=== PATIENT | female | born 1990 | race Caucasian/White ===

== ENCOUNTER 2024-12-10 14:23 | Outpatient (CLI) | payer SELFPAY ==
--- OUTSIDE RECORDS SUMMARY | 2023-11-26 09:00 | XMS_ITS ---
Author Organization [facility], [place], operated by [facility] Address [address] [place] [address] Care Team Providers Care Mine Engineering Supervisor Name Role Phone Alisa Moody Unavailable [phone] Jack Wheeler Unavailable [phone] Results Component Value Reference Range Notes *US OB Complete Transabdomin al/Vaginal Reviewed date:11/26/2023 09:37:17 PM Interpretation: Performing Lab: Notes/Report: [facility] Transvaginal Obstetric Study Report Name: NILSON MESSER Accession/Encounter No:[id number] : 1990 Age: 33 Gender: F Race: White Study Date: Nov 26, 2023 Study Time: 01:20 PM Reading Group: Debo Gonzalez MD Referring Group: Jack Wheeler CNM Ordering Phys: Jack Wheeler CNM Performing User: Elle Paulino RDMS Equipment: Affiniti 30 Study Quality: Good Indications: Viability. Spotting with inappropriate HCG rise at outside facility. A 1st Trimester ultrasound was performed. General Information Trimester: 1st trimester Gestations: 1 : Intrauterine Gestational Age (Best) Best: 10w 5d Determined by: LMP MELANI: 2024-06-18 Gestational Age (LMP) LMP: 10w 5d First Day of LMP: 2023-09-12 MELANI: 2024-06-18 Gestational Age (Current US) Current US: 4w 6d MELANI: 2024-07-29 General Evaluation Gestational sac: 4.4 mm x 4.8 mm x 2.3 mm Gestational sac median diam: 3.8 mm 4w 6d Findings: Maternal Anatomy: Unremarkable right ovary. Abnormal left ovary. There is a 0.9 x 1 x 1.1 cm complex cyst noted on the left ovary. There is a 1.6 x 1.5 x 1.9 cm complex cyst noted on the left ovary. Conclusions: There are two anechoic foci without internal contents noted within endometrium measuring 4.4 x 2.3 x 4.8 mm & 3.1 x 2.3 x 4.2 mm. Uterus, left ovary and bilateral adnexa appear normal. Two complex foci noted on right ovary as above. Small amount of free fluid noted in cul de sac. Approved By: Debo Gonzalez MD Approved at: November 26, 2023 08:15 PM EDT Electronically Signed on Studycast NILSON MESSER 2023-11-26 Page 1 of 1 [facility] [address] REASON FOR VISIT Not checked in for US correctly* LMP Unknown - Approx 09/13/2023 - 11WK.....provider appt is at 1:30, confirmed with patient to arrive at 1:30 still....cv Left VM to arrive at 1 if possible w/ opening Encounters Encounter Location Date Provider Diagnosis [facility] [address] [place] [address] 11/26/2023 Jack Wheeler Encounter to determine viability of , single or unspecified fetus O36.80X0 Assessments Encounter Date Diagnosis (ICD Code) Assessment Notes Treatment Notes Treatment Clinical Notes Section Notes 11/26/2023 Encounter to determine viability of , single or unspecified fetus (ICD-10 - O36.80X0) Plan Of Treatment No Information Progress Notes * Humphrey MESSERB:1990 (34 yo F)Acc No.[id number]:11/26/2023 Patient: Nilson Hassan Provider: Compa Wheeler CNM :1990 A ge:33 Y S ex:Female Date:11/26/2023 Address:[address] [place] [id number] Subjective: * Chief Complaints: * N ot checked in for US correctly* LMP Unknown - Approx 09/13/2023 - 11WK.....provider appt is at 1:30, confirmed with patient to arrive at 1:30 still....cv Left VM to arrive at 1 if possible w/ opening Assessment: * Assessment: 1. E ncounter to determine viability of , single or unspecified fetus - O36.80X0 (Primary) Plan: * Treatment: Billing Information: * Procedure Codes: * Electronic signature of Miguel Wheeler CNM on 12/10/2024 at 02:29 PM EDT Sign off status: Pending Visit Status: C HK (Check Out) * Provider: Compa Wheeler CNM Date: 0 11/26/2023 Generated for Paula brambila/Divya/eTransmitting on: 0 12/10/2024 02:29 PM EDT
--- OUTSIDE RECORDS SUMMARY | 2024-08-04 08:30 | XMS_ITS | Encounter Summary ---
Author Organization [facility] Address [address] [place] [address] Care Team Providers Care Process Development Technician Name Role Phone Provider, No Known Primary Care Provider [phone] Reason for Visit * Diagnostic Imaging (Routine) - Closed Specialty Diagnoses / Procedures Referred By Contac t Referred To Contact Obstetrics and Gynecology Diagnoses Encounter for ultrasound to check growth Procedures US Ob Follow Up Transabdominal Approach US OB Follow Up Transabdominal Approach US Ob Transvaginal Nina Clements MD [address] [place] [address] Phone: tel: fax: [facility] [address] [place] [address] Phone: tel: fax: Referral ID Status Reason Start Date Expiration Date Visits Re quested Visits Authorized [id number] Closed 07/28/2024 10/27/2025 1 1 Encounter Details Date Type Department Care Team (Latest Contact Info) Description 08/04/2024 8:30 AM EDT Hospital Encounter [facility] [phone] Encounter to determine viability of , single or unspecified fetus; Encounter for ultrasound to check growth Social History Tobacco Use Types Packs/Day Years Used Date Smoking Tobacco: Every Day Cigarettes 1 5 Smokeless Tobacco: Never Alcohol Use Standard Drinks/Week Comments Never 0 (1 standard drink = 0.6 oz pur e alcohol) [facility] Utilities Answer Date Recorded In the past 12 months has th e electric, gas, oil, or water company threatened to shut off services in your home? No 10/20/2024 AUDIT-C Answer Date Recorded Q1: How often do you have a drink containing alcohol? Never 10/20/2024 Q2: How many drinks containi ng alcohol do you have on a typical day when you are drinking? Patient does not drink Q3: How often do you have si x or more drinks on one occasion? Never 10/20/2024 Overall Financial Resource Strain (CARDIA) Answe r Date Recorded How hard is it for you to pa y for the very basics like food, housing, medical care, and heating? Not very hard 10/20/2024 [facility] - Occupational Stress Questionnaire Answer Date Recorded Do you feel stress - tense, restless, nervous, or anxious, or unable to sleep at night because your mind is troubled all the time - these days? Not at all 10/20/2024 Exercise Vital Sign Answer Date Recorde d On average, how many days pe r week do you engage in moderate to strenuous exercise (like a brisk walk)? 0 days 10/20/2024 On average, how many minutes do you engage in exercise at this level? 0 min 10/20/2024 Hunger Vital Sign Answer Date Recorded Within the past 12 months, y ou worried that your food would run out before you got the money to buy more. Never true 10/21/19 25 Within the past 12 months, t he food you bought just didn't last and you didn't have money to get more. Never true 10/20/2024 PRAPARE - Transportation Answer Date Re corded In the past 12 months, has l ack of transportation kept you from medical appointments or from getting medications? No 09/29 In the past 12 months, has l ack of transportation kept you from meetings, work, or from getting things needed for daily living? No 10/20/2024 [place] Depression Scale Answer Date Recorded [place] Depression Scale Total 3 11/04/2024 The thought of harming myself has occurred to me . Never 11/04/2024 Abuse Screen Answer Date Recorded Feels Unsafe at Home or Work/School no 10/20/2024 Feels Threatened by Someone no 09/29 Does Anyone Try to Keep You From Having Contact with Others or Doing Things Outside Your Home? no 10/20/2024 Physical Signs of Abuse Present no 10/20/2024 Housing Stability Answer Date Recorded Current Living Arrangements home 09/29 Potentially Unsafe Housing Conditions none 10/20/2024 Family and Community Support Answer Rylie e Recorded If for any reason you need h elp with day-to-day activities such as bathing, preparing meals, shopping, managing finances, etc., do you get the help you need? I get all the help I need 10/20/2024 How often do you feel lonely or isolated from those around you? Never 10/20/2024 Employment Answer Date Recorded Do you want help finding or keeping work or a job? I do not need or want help 10/20/2024 Disabilities Answer Date Recorded Difficulty Concentrating, Remembering or Making Decisions no 10/20/2024 Difficulty Managing Errands Independently no 10/20/2024 Education Answer Date Recorded Do you want help with school or training? For example, starting or completing job training or getting a high school diploma, GED or equivalent No 10/20/2024 Preferred Language Zimbabwean 10/20/2024 PHQ-2 Answer Date Recorded Patient Health Questionnaire-2 Score 0 10/20/2024 Comments No Sex and Gender Information Value Date Recorded Sex Assigned at Not on file Legal Sex Female 1:47 PM EDT Gender Identity Not on file Sexual Orientation Not on file documented as of this encounter Functional Status * Audit-C Score Answer Date of Assessment Author 0 10/20/2024 7:53 AM Sayda Cummings RN * Question Answer Date of Assessment Author Q1: How often do you have a drink containing alcohol? Never 10/20/2024 7:53 AM Sayda Cummings RN Q2: How many drinks containing alcohol do you have on a typical day when you are drinking? Patient does not drink 10/20/2024 7:53 AM Sayda Cummings RN Q3: How often do you have six or more drinks on one occasion? Never 10/20/2024 7:53 AM Sayda Cummings , RN * Over the past 2 weeks, how often have you been bothered by any of the following problems? Question Answer Date of Assessment Author Patient Health Questionnaire -2 Score 0 10/20/2024 7:53 AM EDT Sayda Chen RN * Question Answer Date of Assessment Author 1. Wish to be (Past 1 Month) No 025 7:47 AM EDT Sayda Chen RN 2. Non-Specific Active Suici cory Thoughts (Past 1 Month) No 10/20/2024 7:47 AM EDT Neno Chen RN * Calculated C-SSRS Risk Score (Lifetime/Recent) Answer Date of Assessment Author No Risk Indicated 10/20/2024 7:47 AM EDT Sayda Arredondo RN * [place] Suicide Severity Rating Scale (Screener/Recent Self-Report) Question Answer Date of Assessment Author 6. Suicidal Behavior (Lifetime) No 7:47 AM EDT Sayda Chen RN * Question Answer Date of Assessment Author Little interest or pleasure in doing things Not at all 10/20/2024 7:53 AM EDT Sayda Chen RN Feeling down, depressed, or hopeless Not at all 10/20/2024 7:53 AM EDT Sayda Chen RN documented as of this encounter Plan of Treatment Not on file documented as of this encounter Procedures Procedure Name Priority Date/Time Associated Diagnosis Comments US OB FOLLOW UP TRANSABDOMINAL APPROACH Routine 08/04/2024 9:26 AM EDT Encounter for ultrasound to check growth documented in this encounter Results * US Ob Follow Up Transabdominal Approach (08/04/2024 9:26 AM EDT) Anatomical Region Laterality Modality Body Ultrasound 08/04/2024 9:04 AM EDT Narrative 08/05/2024 7:59 AM EDT PAT NAME: NILSON MESSER MED REC#: [id number] DA: 1990 PAT GEND: F PAT TYPE: O EXAM RYLIE: [id number] REF PHYS NINA CLEMENTS Piercer Comments Previous scans including anatomy done through [facility]. Indication ======== Transfer of care, Opiate use disorder Dx: Encounter for ultrasound to check growth [Z36.89 (ICD-10-CM)] Comparison Studies There are no relevant prior studies to which this study is being compared available. History ====== Previous Outcomes 2 Para 1 Method ======= Voluson E6, Transabdominal ultrasound examination ========= Romero . Number of fetuses: 1 Dating ====== Method of dating: based on stated MELANI GA by prior assessment 27 w + 4 d MELANI by prior assessment: 10/30/2024 Ultrasound examination on: 08/04/2024 GA by U/S based upon: AC, BPD, Femur, HC GA by U/S 27 w + 3 d MELANI by U/S: 10/31/2024 Assigned: based on stated MELANI, selected on 08/04/2024 Assigned GA 27 w + 4 d Assigned MELANI: 10/30/2024 length 280 d General Evaluation Cardiac activity present. FHR 134 bpm. movements visualized. Presentation cephalic. Placenta Placental site: anterior. Amniotic fluid Amount of AF: normal. Biometry Standard BPD 68.0 mm 27w 3d 31% Hadlock OFD 87.3 mm 28w 1d 68% Hugo HC 248.4 mm 27w 0d 9% Hadlock AC 237.3 mm 28w 0d 57% Hadlock Femur 51.0 mm 27w 2d 28% Hadlock HC / AC 1.05 EFW 1,105 g 27w 2d 40% Hadlock EFW (lb) 2 lb EFW (oz) 7 oz EFW by: Hadlock ([id number]) Other: An ultrasound for weight has a margin of error of up to twenty percent. Head / Face / Neck Cephalic index 0.78 40% Nicolaides Extremities / Bony Struc FL / BPD 0.75 FL / HC 0.21 FL / AC 0.21 Other Structures FHR 134 bpm Anatomy Cranium: Appears normal Lateral ventricles: Appears normal Midline falx: Appears normal Lips: Appear normal Nose: Appears normal 4-chamber view: Appears normal RVOT view: Appears normal Heart / Thorax 3-vessel view: Appears normal Stomach: Appears normal Kidneys: Appears normal Bladder: Appears normal Cervical spine: Appears normal Thoracic spine: Appears normal Lumbar spine: Appears normal Sacral spine: Appears normal Rt hand: suboptimal Lt hand: suboptimal Rt foot: Appears normal Lt foot: Appears normal Gender: female Wants to know gender: yes Impression ========= Fetus is well grown with size consistent with dates. Limited but normal appearing anatomy. Recommendation Follow-up scan as clinically indicated. Piercer: Debo Guerrero RDMS Physician: Nina Clements MD Electronically signed by: Nina Clements MD at: 12:54 Procedure Note Nina Clements MD - 08/18/2024 PAT NAME: NILSON MESSER MED REC#: [id number] DA: 1990 PAT GEND: F PAT TYPE: O EXAM RYLIE: [id number] REF PHYS NINA CLEMENTS Piercer Comments Previous scans including anatomy done through [facility]. Indication ======== Transfer of care, Opiate use disorder Dx: Encounter for ultrasound to check growth [Z36.89 (ICD-10-CM)] Comparison Studies There are no relevant prior studies to which this study is being comparedavailable. History ====== Previous Outcomes Gravida2 Para1 Method ======= Voluson E6, Transabdominal ultrasound examination ========= Romero . Number of fetuses: 1 Dating ====== Method of dating:based on stated MELANI GA by prior [id number] w + 4 d MELANI by prior assessment:10/30/2024 Ultrasound examination on:08/04/2024 GA by U/S based upon:AC, BPD, Femur, HC GA by U/S27 w + 3 d MELANI by U/S:10/31/2024 Assigned:based on stated MELANI, selected on 08/04/2024 Assigned GA27 w + 4 d Assigned MELANI:10/30/2024 [id number] d General Evaluation Cardiac activity present. FHR 134 bpm. movements visualized. Presentation cephalic. Placenta Placental site: anterior. Amniotic fluid Amount of AF: normal. Biometry Standard BPD68.0 mm 27w 3d 31% Hadlock OFD87.3 mm 28w 1d 68% Hugo HC248.4 mm 27w 0d 9% Hadlock AC237.3 mm 28w 0d 57% Hadlock Femur51.0 mm 27w 2d 28% Hadlock HC / AC1.05 EFW1,105 g 27w 2d 40% Hadlock EFW (lb)2 lb EFW (oz)7 oz EFW by:Hadlock ([id number]) Other:An ultrasound for weight has a margin of error of up totwenty percent. Head / Face / Neck Cephalic index0.78 40% Nicolaides Extremities / Bony Struc FL / BPD0.75 FL / HC0.21 FL / AC0.21 Other Structures [id number] bpm Anatomy Cranium:Appears normal Lateral ventricles:Appears normal Midline falx:Appears normal Lips:Appear normal Nose:Appears normal 4-chamber view:Appears normal RVOT view:Appears normal Heart / Thorax 3-vessel view:Appears normal Stomach:Appears normal Kidneys:Appears normal Bladder:Appears normal Cervical spine:Appears normal Thoracic spine:Appears normal Lumbar spine:Appears normal Sacral spine:Appears normal Rt hand:suboptimal Lt hand:suboptimal Rt foot:Appears normal Lt foot:Appears normal Gender:female Wants to know gender:yes Impression ========= Fetus is well grown with size consistent with dates. Limited but normalappearing anatomy. Recommendation Follow-up scan as clinically indicated. Piercer: Debo Guerrero RDMS Physician: Nina Clements MD Electronically signed by: Nina Clements MD at: 12:54 us Nina Clements MD [facility] [place] ORDERABLES Edited Result - Final documented in this encounter Visit Diagnoses Diagnosis Encounter to determine viability of , single or unspecified fetus documented in this encounter Care Teams Process Development Technician Relationship Specialty Start Date End Date Provider, [place] [address] PCP - General 12/16/15 documented as of this encounter
--- OUTSIDE RECORDS SUMMARY | 2024-09-07 10:19 | XMS_ITS | Encounter Summary ---
Author Organization [facility] Address [address] [place] [address] Care Team Providers Care Sole Splitter Name Role Phone Provider, No Known Primary Care Provider Reason for Referral * Diagnostic Imaging (Routine) - Authorized Specialty Diagnoses / Procedures Referred By Contact Referred To Contact Obstetrics and Gynecology Diagnoses 32 weeks gestation of Supervision of high risk in third trimester History of pre-eclampsia in prior , currently Opioid dependence in remission Previous section Hepatitis C virus infection in mother during Procedures US Biophysical Profile;Without Non-Stress Testing Rosangela Grimm CNM [address] [place] [address] Phone: tel: fax: [facility] [address] [place] [phone] Phone: tel: fax: Referral ID Status Reason Start Date Expiration Date V isits Requested Visits Authorized [id number] Authorized 09/06/2024 12/06/2025 8 8 Reason for Visit * Diagnostic Imaging (Routine) - Authorized Specialty Diagnoses / Procedures Referred By Contact Referred To Contact Obstetrics and Gynecology Diagnoses 32 weeks gestation of Supervision of high risk in third trimester History of pre-eclampsia in prior , currently Opioid dependence in remission Previous section Hepatitis C virus infection in mother during Procedures US Biophysical Profile;Without Non-Stress Testing Rosangela Grimm CNM [address] [facility] [address] [place] [address] Phone: tel: fax: [facility] [address] [place] [address] Phone: tel: fax: Referral ID Status Reason Start Date Expiration Date V isits Requested Visits Authorized [id number] Authorized 09/06/2024 12/06/2025 8 8 Encounter Details Date Type Department Care Team (Latest Contact Info) Description 09/07/2024 10:19 AM EDT Hospital Encounter BH [facility] [phone] 32 weeks gestation of ; Supervision of high risk in third trimester; History of pre-eclampsia in prior , currently ; Opioid dependence in remission; Previous section; Hepatitis C virus infection in mother during - undetectable quant Social History Tobacco Use Types Packs/Day Years Used Date Smoking Tobacco: Every Day Cigarettes 1 5 Smokeless Tobacco: Never Alcohol Use Standard Drinks/Week Comments Never 0 (1 standard drink = 0.6 oz pur e alcohol) [facility] Utilities Answer Date Recorded In the past 12 months has e [employer], gas, oil, or water [employer] threatened to shut off services in your [...] care, and heating? Not very hard 10/20/2024 [facility] [place] of Occupat ional Health - Occupational Stress Questionnaire Answer Date Recorded [...] things needed for daily living? No 10/20/2024 [place] Depression Scale Answer Date Recorded [place] Depression Scale Total 3 11/04/2024 The thought [...] none 10/20/2024 Family and Community Support Answer Gurmeet e Recorded If for any reason you [...] GED or equivalent No 10/20/2024 Preferred Language Uruguayan 10/20/2024 PHQ-2 Answer Date Recorded Patient Health [...] occasion? Never 10/20/2024 7:53 AM Sayda Cummings RN * Over the past 2 weeks, how often have you been bothered by any of the following problems? Question Answer Date of Assessment Author Patient Health Questionnaire -2 Score 0 10/20/2024 7:53 AM Sayda Cummings RN * Question Answer Date of Assessment Author 1. Wish to be (Past 1 Month) No 025 7:47 AM Sayda Cummings RN 2. Non-Specific Active Suici cory Thoughts (Past 1 Month) No 10/20/2024 7:47 AM Neno Cummings RN * Calculated C-SSRS Risk Score (Lifetime/Recent) Answer Date of Assessment Author No Risk Indicated 10/20/2024 7:47 AM Sayda Rodriguez RN * [place] Suicide Severity Rating Scale (Screener/Recent Self-Report) Question Answer Date of Assessment Author 6. Suicidal Behavior (Lifetime) No 7:47 AM Sayda Cummings RN * Question Answer [...] Name Priority Date/Time Associated Diagnosis Comments US BIOPHYSICAL PROFILE;WITHOUT NON-STRESS TESTING Routine 09/07/2024 11:06 AM EDT 32 weeks gestation of Supervision of high risk in third trimester History of pre-eclampsia in prior , currently Opioid dependence in remission Previous section Hepatitis C virus infection in mother during - undetectable quant documented in this encounter Results * US Biophysical Profile;Without Non-Stress Testing (09/07/2024 11:06 AM EDT) Anatomical Region Laterality Modality Body Ultrasound 09/07/2024 10:4 9 AM EDT Narrative 09/10/2024 4:20 PM EDT PAT NAME: NILSON MESSER MED REC#: [id number] DA: [id number] PAT GEND: F PAT TYPE: O EXAM GURMEET: [id number] REF PHYS ROSANGELA GRIMM Indication ======== history of pre eclampsia , on subutex Dx: 32 weeks gestation of [Z3A.32 (ICD-10-CM)]; Supervision of high risk in third trimester [O09.93 (ICD-10-CM)]; History of pre-eclampsia in prior , currently [O09.299 (ICD-10-CM)]; Opioid dependence in remission [F11.21 (ICD-10-CM)]; Previous section [Z98.891 (ICD-10-CM)]; Hepatitis C virus infection in mother during - undetectable quant [O98.419, B19.20 (ICD-10-CM)] Comparison Studies The findings of this study are compared to the prior ultrasound study dated 08/04/2024 Method ======= Voluson E6, Transabdominal ultrasound examination. View: Sufficient ========= Romero . Number of fetuses: 1 Dating ====== GA by prior assessment 32 w + 3 d MELANI by prior assessment: 10/30/2024 Method of dating: Restore dating from previous exam Previous dating: based on stated MELANI, selected on 08/04/2024 Agreed MELANI of previous datin10/30/2024 Assigned: based on stated MELANI, selected on 08/04/2024 Assigned GA 32 w + 3 d Assigned MELANI: 10/30/2024 length 280 d General Evaluation Cardiac activity present. FHR 138 bpm. movements visualized. Presentation cephalic. Placenta Placental site: anterior. Amniotic Fluid Assessment Amount of AF: subjectively high MVP 8.4 cm. GRABIEL 24.4 cm. Q1 4.5 cm, Q2 5.4 cm, Q3 8.4 cm, Q4 6.1 cm Biophysical Profile 2: breathing movements 2: Gross body movements 2: tone 2: Amniotic fluid volume 11/05 Biophysical profile score Anatomy Gender: female. Impression ========= Normal BPP Recommendation Continue the routine schedule of testing for the condition being monitored. Automatic Bow Maker Machine Tender: Debo Guerrero RDMS Physician: Ashley Cruz MD Electronically signed by: Ashley Cruz MD at: 16:20 Procedure Note Ashley Cruz MD - 09/10/2024 PAT NAME: NILSON MESSER MED REC#: [id number] DA: 1990 PAT GEND: F PAT TYPE: O EXAM GURMEET: [id number] REF PHYS ROSANGELA GRIMM Indication ======== history of pre eclampsia , on subutex Dx: 32 weeks gestation of [Z3A.32 (ICD-10-CM)]; Supervision ofhigh risk in third trimester [O09.93 (ICD-10-CM)]; History ofpre-eclampsia in prior , currently [O09.299 (ICD-10-CM)]; Opioid dependence inremission [F11.21 (ICD-10-CM)]; Previous section [Z98.891(ICD-10-CM)]; Hepatitis C virus infection in mother during - undetectable quant[O98.419, B19.20 (ICD-10-CM)] Comparison Studies The findings of this study are compared to the prior ultrasound studydated 08/04/2024 Method ======= Voluson E6, Transabdominal ultrasound examination. View: Sufficient ========= Romero . Number of fetuses: 1 Dating ====== GA by prior [id number] w + 3 d MELANI by prior assessment:10/30/2024 Method of dating:Restore dating from previous exam Previous dating:based on stated MELANI, selected on 08/04/2024 Agreed MELANI of previous datin10/30/2024 Assigned:based on stated MELANI, selected on 08/04/2024 Assigned GA32 w + 3 d Assigned MELANI:10/30/2024 [id number] d General Evaluation Cardiac activity present. FHR 138 bpm. movements visualized. Presentation cephalic. Placenta Placental site: anterior. Amniotic Fluid Assessment Amount of AF: subjectively high MVP 8.4 cm. GRABIEL 24.4 cm. Q1 4.5 cm, Q2 5.4 cm, Q3 8.4 cm, Q4 6.1 cm Biophysical Profile 2: breathing movements 2: Gross body movements 2: tone 2: Amniotic fluid volume 11/05 Biophysical profile score Anatomy Gender: female. Impression ========= Normal BPP Recommendation Continue the routine schedule of testing for the condition beingmonitored. Automatic Bow Maker Machine Tender: Debo Guerrero RDMS Physician: Ashley Cruz MD Electronically signed by: Ashley Cruz MD at: 16:20 Rosangela Ruiz [facility] ORDERABLES Final Resul t documented in this encounter Visit Diagnoses Diagnosis 32 weeks gestation of Supervision of high risk in third trimester History of pre-eclampsia in prior , currently with other poor obstetric history Opioid dependence in remission Opioid type dependence, in remission Previous section Other postprocedural status Hepatitis C virus infection in mother during - undetectable quant documented in this encounter Care Teams Sole Splitter Relationship Specialty Start Date End Date Provider, No Known [place], [place] [id number] PCP - General 12/16/15 documented as of this encounter
--- OUTSIDE RECORDS SUMMARY | 2024-09-10 14:28 | XMS_ITS | Encounter Summary ---
Author Organization [facility] Address [address] [place] [id number] Care Team Providers Care Money Market Dealer Name Role Phone Provider, No Known Primary Care Provider [phone] Reason for Referral * Diagnostic Imaging (Routine) [...] Profile;Without Non-Stress Testing Rosangela Grimm CNM [address] [place] [address] Phone: tel: fax: [facility] [address] [place] [phone] Phone: tel: fax: Referral ID Status Reason Start Date Expiration Date V isits Requested Visits Authorized [id number] Authorized 09/06/2024 12/06/2025 8 8 Reason for [...] Procedures US Biophysical Profile;Without Non-Stress Testing Rosangela Grimm, KAREEM [address] [facility] [address] [place] [address] Phone: tel: fax: [facility] [address] [place] [address] Phone: tel: fax: Referral ID Status Reason Start Date Expiration Date V isits Requested Visits Authorized [id number] Authorized 09/06/2024 12/06/2025 8 8 Encounter Details Date Type Department Care Team (Latest Contact Info) Description 09/10/2024 2:28 PM EDT Hospital Encounter BH ELZA [facility] [phone] 32 weeks gestation of ; Supervision of high risk in third trimester; History of eclampsia; Opioid dependence in remission; Previous section; Hepatitis C virus infection in mother during - undetectable quant Social History Tobacco Use Types Packs/Day Years Used Date Smoking Tobacco: Every Day Cigarettes 1 5 Smokeless Tobacco: Never Alcohol Use Standard Drinks/Week Comments Never 0 (1 standard drink = 0.6 oz pur e alcohol) [facility] Utilities Answer Date Recorded In the past 12 months has [employer], gas, oil, or water [employer] threatened to shut off services in your [...] care, and heating? Not very hard 10/20/2024 [facility] [place] of Occupat ional Health - Occupational Stress [...] things needed for daily living? No 10/20/2024 [place] Depression Scale Answer Date Recorded [place] Depression Scale Total 3 11/04/2024 The thought [...] GED or equivalent No 10/20/2024 Preferred Language Namibian 10/20/2024 PHQ-2 Answer Date Recorded Patient Health [...] 10/20/2024 7:47 AM Sayda Rodriguez RN * [place] Suicide Severity Rating Scale (Screener/Recent Self-Report) Question Answer Date of Assessment Author 6. Suicidal Behavior (Lifetime) No 7:47 AM Sayda Cummings RN * Question Answer Date of Assessment Author Little interest or pleasure in doing things Not at all 10/20/2024 7:53 AM Sayda Cumminsg RN Feeling down, depressed, or hopeless Not at all 10/20/2024 7:53 AM EDT Sayda Chen RN documented as of this encounter Plan of Treatment Not on file documented as of this encounter Procedures Procedure Name Priority Date/Time Associated Diagnosis Comments US BIOPHYSICAL PROFILE;WITHOUT NON-STRESS TESTING Routine 09/10/2024 3:14 PM EDT 32 weeks gestation of Supervision of high risk in third trimester History of eclampsia Opioid dependence in remission Previous section Hepatitis C virus infection in mother during - undetectable quant documented in this encounter Results * US Biophysical Profile;Without Non-Stress Testing (09/10/2024 3:14 PM EDT) Anatomical Region Laterality Modality Body Ultrasound 09/10/2024 2:50 PM EDT Narrative 09/10/2024 4:18 PM EDT PAT NAME: NILSON MESSER MED REC#: [id number] DA: [id number] PAT GEND: F PAT TYPE: O EXAM GURMEET: [id number] REF PHYS ROSANGELA GRIMM Indication ======== history of pre eclampsia , on subutex Dx: 32 weeks gestation of [Z3A.32 (ICD-10-CM)]; Supervision of high risk in third trimester [O09.93 (ICD-10-CM)]; History of eclampsia [Z87.59 (ICD-10-CM)]; Opioid dependence in remission [F11.21 (ICD-10-CM)]; Previous section [Z98.891 (ICD-10-CM)]; Hepatitis C virus infection in mother during - undetectable quant [O98.419, B19.20 (ICD-10-CM)] Comparison Studies The findings of this study are compared to the prior ultrasound study dated 09/07/2024 Method ======= Voluson E6, Transabdominal ultrasound examination. View: Sufficient ========= Romero . Number of fetuses: 1 Dating ====== GA by prior assessment 33 w + 0 d MELANI by prior assessment: 10/29/2024 Method of dating: Restore dating from previous exam Previous dating: based on stated MELANI, selected on 08/04/2024 Agreed MELANI of previous datin10/30/2024 Assigned: based on stated MELANI, selected on 08/04/2024 Assigned GA 32 w + 6 d Assigned MELANI: 10/30/2024 length 280 d General Evaluation Cardiac activity present. FHR 137 bpm. movements visualized. Presentation cephalic. Placenta Placental site: anterior. Amniotic Fluid Assessment Amount of AF: polyhydramnios, MVP 10.8 cm. GRABIEL 21.4 cm. Q1 10.8 cm, Q2 5.4 cm, Q3 4.2 cm, Q4 1.1 cm Biophysical Profile 2: breathing movements 2: Gross body movements 2: tone 2: Amniotic fluid volume 11/05 Biophysical profile score Anatomy Gender: female. Impression ========= BPP 8. Polyhydramnios by MVP 10. Recommendation Continue the routine schedule of testing for the condition being monitored. Needs to complete glucose test. Court Supervisor: Debo Guerrero RDMS Physician: Ashley Cruz MD Electronically signed by: Ashley Cruz MD at: 16:18 Procedure Note Ashley Cruz MD - 09/10/2024 PAT NAME: NILSON MESSER MED REC#: [id number] DA: 1990 PAT GEND: F PAT TYPE: O EXAM GURMEET: [id number] REF PHYS ROSANGELA GRIMM Indication ======== history of pre eclampsia , on subutex Dx: 32 weeks gestation of [Z3A.32 (ICD-10-CM)]; Supervision ofhigh risk in third trimester [O09.93 (ICD-10-CM)]; History ofeclampsia [Z87.59 (ICD-10-CM)]; Opioid dependence in remission [F11.21 (ICD-10-CM)];Previous section [Z98.891 (ICD-10-CM)]; Hepatitis C virusinfection in mother during - undetectable quant [O98.419, B19.20 (ICD-10-CM)] Comparison Studies The findings of this study are compared to the prior ultrasound studydated 09/07/2024 Method ======= Voluson E6, Transabdominal ultrasound examination. View: Sufficient ========= Romero . Number of fetuses: 1 Dating ====== GA by prior [id number] w + 0 d MELANI by prior assessment:10/29/2024 Method of dating:Restore dating from previous exam Previous dating:based on stated MELANI, selected on 08/04/2024 Agreed MELANI of previous datin10/30/2024 Assigned:based on stated MELANI, selected on 08/04/2024 Assigned GA32 w + 6 d Assigned MELANI:10/30/2024 [id number] d General Evaluation Cardiac activity present. FHR 137 bpm. movements visualized. Presentation cephalic. Placenta Placental site: anterior. Amniotic Fluid Assessment Amount of AF: polyhydramnios, MVP 10.8 cm. GRABIEL 21.4 cm. Q1 10.8 cm, Q2 5.4 cm, Q3 4.2 cm, Q4 1.1 cm Biophysical Profile 2: breathing movements 2: Gross body movements 2: tone 2: Amniotic fluid volume 11/05 Biophysical profile score Anatomy Gender: female. Impression ========= BPP 11/05. Polyhydramnios by MVP 10. Recommendation Continue the routine schedule of testing for the condition beingmonitored. Needs to complete glucose test. Court Supervisor: Debo Guerrero RDMS Physician: Ashley Cruz MD Electronically signed by: Ashley Cruz MD at: 16:18 Rosangela Grimm [facility] US ORDERABLES Final Resul t documented in this encounter Visit Diagnoses Diagnosis 32 weeks gestation of Supervision of high risk in third trimester History of eclampsia Opioid dependence in remission Opioid type dependence, in remission Previous section Other postprocedural status Hepatitis C virus infection in mother during - undetectable quant documented in this encounter Care Teams Money Market Dealer Relationship Specialty Start Date End Date Provider, [place] [address] PCP - General 12/16/15 documented as of this encounter
--- OUTSIDE RECORDS SUMMARY | 2024-09-15 10:30 | XMS_ITS | Encounter Summary ---
Author Organization [facility] Address [address] [place] [address] Care Team Providers Care Hard Candy Batch Mixer Name Role Phone Provider, No Known Primary Care Provider [phone] Reason for Referral * Diagnostic Imaging (Routine) [...] Profile;Without Non-Stress Testing Rosangela Grimm CNM [address] [place] [address] Phone: tel: fax: [facility] [address] [place] [phone] Phone: tel: fax: Referral ID Status Reason Start Date Expiration Date V isits Requested Visits Authorized [id number] Authorized 09/06/2024 12/06/2025 8 8 Reason for [...] Profile;Without Non-Stress Testing Rosangela Grimm, KAREEM [address] [facility] [address] [place] [address] Phone: tel: fax: [facility] [address] [place] [address] Phone: tel: fax: Referral ID Status Reason Start Date Expiration Date V isits Requested Visits Authorized [id number] Authorized 09/06/2024 12/06/2025 8 8 Encounter Details Date Type Department Care Team (Latest Contact Info) Description 09/15/2024 10:30 AM EDT Hospital Encounter BH ELZA [facility] [phone] 32 weeks gestation of ; Supervision of [...] drink = 0.6 oz pur e alcohol) [facility] Utilities Answer Date Recorded In the past 12 months has [employer], gas, oil, or water [employer] threatened to shut off services in your [...] care, and heating? Not very hard 10/20/2024 [facility] [place] of Occupat ional Health - Occupational Stress [...] things needed for daily living? No 10/20/2024 [place] Depression Scale Answer Date Recorded [place] Depression Scale Total 3 11/04/2024 The thought [...] GED or equivalent No 10/20/2024 Preferred Language Armenian 10/20/2024 PHQ-2 Answer Date Recorded Patient Health [...] 10/20/2024 7:47 AM Sayda Rodriguez RN * [place] Suicide Severity Rating Scale (Screener/Recent Self-Report) Question Answer Date of Assessment Author 6. Suicidal Behavior (Lifetime) No 7:47 AM Sayda Cummings RN * Question Answer Date of Assessment Author Little interest or pleasure in doing things Not at all 10/20/2024 7:53 AM Sayda Cummings RN Feeling down, depressed, or hopeless Not at all 10/20/2024 7:53 AM EDT Sayda Chen RN documented as of this encounter Plan of Treatment Not on file documented as of this encounter Procedures Procedure Name Priority Date/Time Associated Diagnosis Comments US BIOPHYSICAL PROFILE;WITHOUT NON-STRESS TESTING Routine 09/15/2024 11:11 AM EDT 32 weeks gestation of Supervision of high risk in third trimester History of eclampsia Opioid dependence in remission Previous section Hepatitis C virus infection in mother during - undetectable quant documented in this encounter Results * US Biophysical Profile;Without Non-Stress Testing (09/15/2024 11:11 AM EDT) Anatomical Region Laterality Modality Body Ultrasound 09/15/2024 10:5 3 AM EDT Narrative 09/15/2024 12:35 PM EDT PAT NAME: NILSON MESSER MED REC#: [id number] DA: [id number] PAT GEND: F PAT TYPE: O EXAM GURMEET: [id number] REF PHYS ROSANGELA GRIMM Indication ======== history [...] compared to the prior ultrasound study dated 09/10/24 Method ======= Voluson E6, Transabdominal ultrasound examination. View: Sufficient ========= Romero . Number of fetuses: 1 Dating ====== GA by prior assessment 33 w + 5 d MELANI by prior assessment: 10/29/2024 Method of dating: Restore dating from previous exam Previous dating: based on stated MELANI, selected on 08/04/2024 Agreed MELANI of previous datin10/30/2024 Assigned: based on stated MELANI, selected on 08/04/2024 Assigned GA 33 w + 4 d Assigned MELANI: 10/30/2024 length 280 d General Evaluation Cardiac activity present. FHR 138 bpm. movements visualized. Presentation cephalic. Placenta Placental site: anterior. Amniotic Fluid Assessment Amount of AF: normal MVP 9.2 cm. GRABIEL 20.4 cm. Q1 9.2 cm, Q2 5.1 cm, Q3 5.0 cm, Q4 1.1 cm Biophysical Profile 2: breathing movements 2: Gross body movements 2: tone 2: Amniotic fluid volume 11/05 Biophysical profile score Anatomy Gender: female. Impression ========= Normal BPP but polyhydramnios by MVP. Recommendation Continue the routine schedule of testing for the condition being monitored. Recommend growth next visit. Insurance Verification Representative: Debo Guerrero RDMS Physician: Ashley Cruz MD Electronically signed by: Ashley Cruz MD at: 12:35 Procedure Note Ashley Cruz MD - 09/15/2024 PAT NAME: NILSON MESSER MED REC#: [id number] DA: 1990 PAT GEND: F PAT TYPE: O EXAM GURMEET: [id number] REF PHYS ROSANGELA GRIMM Indication ======== history [...] are compared to the prior ultrasound studydated 09/10/24 Method ======= Voluson E6, Transabdominal ultrasound examination. View: Sufficient ========= Romero . Number of fetuses: 1 Dating ====== GA by prior [id number] w + 5 d MELANI by prior assessment:10/29/2024 Method of dating:Restore dating from previous exam Previous dating:based on stated MELANI, selected on 08/04/2024 Agreed MELANI of previous datin10/30/2024 Assigned:based on stated MELANI, selected on 08/04/2024 Assigned GA33 w + 4 d Assigned MELANI:10/30/2024 [id number] d General Evaluation Cardiac activity present. FHR 138 bpm. movements visualized. Presentation cephalic. Placenta Placental site: anterior. Amniotic Fluid Assessment Amount of AF: normal MVP 9.2 cm. GRABIEL 20.4 cm. Q1 9.2 cm, Q2 5.1 cm, Q3 5.0 cm, Q4 1.1 cm Biophysical Profile 2: breathing movements 2: Gross body movements 2: tone 2: Amniotic fluid volume 11/05 Biophysical profile score Anatomy Gender: female. Impression ========= Normal BPP but polyhydramnios by MVP. Recommendation Continue the routine schedule of testing for the condition beingmonitored. Recommend growth next visit. Insurance Verification Representative: Debo Guerrero RDMS Physician: Ashley Cruz MD Electronically signed by: Ashley Cruz MD at: 12:35 us Rosangela Callejascker [facility] US ORDERABLES Final Resul t documented in this encounter Visit Diagnoses Diagnosis 32 weeks gestation of Supervision of high risk in third trimester History of eclampsia Opioid dependence in remission Opioid type dependence, in remission Previous section Other postprocedural status Hepatitis C virus infection in mother during - undetectable quant documented in this encounter Care Teams Hard Candy Batch Mixer Relationship Specialty Start Date End Date Provider, [place] [address] PCP - General 12/16/15 documented as of this encounter
--- OUTSIDE RECORDS SUMMARY | 2024-09-21 10:20 | XMS_ITS | Encounter Summary ---
Author Organization [facility] Address [address] [place] [address] Care Team Providers Care Employment Evaluator/Case Manager Name Role Phone Provider, No Known Primary Care Provider [phone] Reason for Referral * Diagnostic Imaging (Routine) [...] Profile;Without Non-Stress Testing Rosangela Grimm CNM [address] [place] [address] Phone: tel: fax: [facility] [address] [place] [phone] Phone: tel: fax: Referral ID Status Reason Start Date Expiration Date V isits Requested Visits Authorized [id number] Authorized 09/06/2024 12/06/2025 8 8 Reason for [...] Profile;Without Non-Stress Testing Rosangela Grimm, KAREEM [address] [facility] [address] [place] [address] Phone: tel: fax: [facility] [address] [place] [address] Phone: tel: fax: Referral ID Status Reason Start Date Expiration Date V isits Requested Visits Authorized [id number] Authorized 09/06/2024 12/06/2025 8 8 Encounter Details Date Type Department Care Team (Latest Contact Info) Description 09/21/2024 10:20 AM EDT Hospital Encounter [facility] [phone] 32 weeks gestation of ; Supervision of [...] drink = 0.6 oz pur e alcohol) [facility] Utilities Answer Date Recorded In the past 12 months has [employer], gas, oil, or water [employer] threatened to shut off services in your [...] care, and heating? Not very hard 10/20/2024 [facility] of Occupat ional Health - Occupational Stress [...] things needed for daily living? No 10/20/2024 [place] Depression Scale Answer Date Recorded [place] Depression Scale Total 3 11/04/2024 The thought [...] GED or equivalent No 10/20/2024 Preferred Language Sudanese 10/20/2024 PHQ-2 Answer Date Recorded Patient Health [...] 10/20/2024 7:47 AM Sayda Rodriguez RN * [place] Suicide Severity Rating Scale (Screener/Recent Self-Report) Question [...] Comments US BIOPHYSICAL PROFILE;WITHOUT NON-STRESS TESTING Routine 09/21/2024 10:49 AM EDT 32 weeks gestation of Supervision of high risk in third trimester History of eclampsia Opioid dependence in remission Previous section Hepatitis C virus infection in mother during - undetectable quant documented in this encounter Results * US Biophysical Profile;Without Non-Stress Testing (09/21/2024 10:49 AM EDT) Anatomical Region Laterality Modality Body Ultrasound 09/21/2024 10:3 7 AM EDT Narrative 09/21/2024 12:21 PM EDT PAT NAME: NILSON MESSER MED REC#: [id number] DA: [id number] PAT GEND: F PAT TYPE: O EXAM GURMEET: [id number] REF PHYS ROSANGELA GRIMM Indication ======== history [...] compared to the prior ultrasound study dated 09/15/2024 Method ======= Voluson E6, Transabdominal ultrasound examination. View: Sufficient ========= Romero . Number of fetuses: 1 Dating ====== GA by prior assessment 34 w + 3 d MELANI by prior assessment: 10/30/2024 Method of dating: Restore dating from previous exam Previous dating: based on stated MELANI, selected on 08/04/2024 Agreed MELANI of previous datin10/30/2024 Assigned: based on stated MELANI, selected on 08/04/2024 Assigned GA 34 w + 3 d Assigned MELANI: 10/30/2024 length 280 d General Evaluation Cardiac activity present. FHR 136 bpm. movements visualized. Presentation cephalic. Placenta Placental site: anterior. Amniotic Fluid Assessment Amount of AF: normal MVP 6.2 cm. GRABIEL 21.2 cm. Q1 6.2 cm, Q2 3.8 cm, Q3 6.1 cm, Q4 5.1 cm Biophysical Profile 2: breathing movements 2: Gross body movements 2: tone 2: Amniotic fluid volume 11/05 Biophysical profile score Anatomy Gender: female. Impression ========= Normal BPP Recommendation Continue the routine schedule of testing for the condition being monitored. Annual Giving Manager: Debo Guerrero RDMS Physician: Ashley Cruz MD Electronically signed by: Ashley Cruz MD at: 12:21 Procedure Note Ashley Cruz MD - 09/21/2024 PAT NAME: NILSON MESSER MED REC#: [id number] DA: 1990 PAT GEND: F PAT TYPE: O EXAM GURMEET: [id number] REF PHYS ROSANGELA GRIMM Indication ======== history [...] are compared to the prior ultrasound studydated 09/15/2024 Method ======= Voluson E6, Transabdominal ultrasound examination. View: Sufficient ========= Romero . Number of fetuses: 1 Dating ====== GA by prior [id number] w + 3 d MELANI by prior assessment:10/30/2024 Method of dating:Restore dating from previous exam Previous dating:based on stated MELANI, selected on 08/04/2024 Agreed MELANI of previous datin10/30/2024 Assigned:based on stated MELANI, selected on 08/04/2024 Assigned GA34 w + 3 d Assigned MELANI:10/30/2024 [email or web address] d General Evaluation Cardiac activity present. FHR 136 bpm. movements visualized. Presentation cephalic. Placenta Placental site: anterior. Amniotic Fluid Assessment Amount of AF: normal MVP 6.2 cm. GRABIEL 21.2 cm. Q1 6.2 cm, Q2 3.8 cm, Q3 6.1 cm, Q4 5.1 cm Biophysical Profile 2: breathing movements 2: Gross body movements 2: tone 2: Amniotic fluid volume 11/05 Biophysical profile score Anatomy Gender: female. Impression ========= Normal BPP Recommendation Continue the routine schedule of testing for the condition beingmonitored. Annual Giving Manager: Debo Guerrero RDMS Physician: Ashley Cruz MD Electronically signed by: Ashley Cruz MD at: 12:21 Rosangela Grimm [facility] ORDERABLES Final Resul t documented in this encounter Visit Diagnoses Diagnosis 32 weeks gestation of Supervision of high risk in third trimester History of eclampsia Opioid dependence in remission Opioid type dependence, in remission Previous section Other postprocedural status Hepatitis C virus infection in mother during - undetectable quant documented in this encounter Care Teams Employment Evaluator/Case Manager Relationship Specialty Start Date End Date Provider, [place] [address] PCP - General 12/16/15 documented as of this encounter
--- OUTSIDE RECORDS SUMMARY | 2024-09-29 10:30 | XMS_ITS | Encounter Summary ---
Author Organization [facility] Address [address] [place] [address] Care Team Providers Care Pension Examiner Name Role Phone Provider, No Known Primary Care Provider [phone] Reason for Referral * Diagnostic Imaging (Routine) [...] Profile;Without Non-Stress Testing Rosangela Grimm CNM [address] [place] [address] Phone: tel: fax: [facility] [address] [place] [phone] Phone: tel: fax: Referral ID Status Reason Start Date Expiration Date V isits Requested Visits Authorized [id number] Authorized 09/06/2024 12/06/2025 8 8 Reason for [...] Profile;Without Non-Stress Testing Rosangela Grimm, KAREEM [address] [facility] [address] [place] [address] Phone: tel: fax: [facility] [address] [place] [address] Phone: tel: fax: Referral ID Status Reason Start Date Expiration Date V isits Requested Visits Authorized [id number] Authorized 09/06/2024 12/06/2025 8 8 Encounter Details Date Type Department Care Team (Latest Contact Info) Description 09/29/2024 10:30 AM EDT Hospital Encounter [facility] [phone] 32 weeks gestation of ; Supervision of [...] drink = 0.6 oz pur e alcohol) [facility] Utilities Answer Date Recorded In the past 12 months has [employer], gas, oil, or water [employer] threatened to shut off services in your [...] care, and heating? Not very hard 10/20/2024 [facility] of Occupat ional Health - Occupational Stress [...] things needed for daily living? No 10/20/2024 [place] Depression Scale Answer Date Recorded [place] Depression Scale Total 3 11/04/2024 The thought [...] GED or equivalent No 10/20/2024 Preferred Language Egyptian 10/20/2024 PHQ-2 Answer Date Recorded Patient Health [...] 10/20/2024 7:47 AM Sayda Rodriguez RN * [place] Suicide Severity Rating Scale (Screener/Recent Self-Report) Question [...] Comments US BIOPHYSICAL PROFILE;WITHOUT NON-STRESS TESTING Routine 09/29/2024 11:01 AM EDT 32 weeks gestation of Supervision of high risk in third trimester History of eclampsia Opioid dependence in remission Previous section Hepatitis C virus infection in mother during - undetectable quant documented in this encounter Results * US Biophysical Profile;Without Non-Stress Testing (09/29/2024 11:01 AM EDT) Anatomical Region Laterality Modality Body Ultrasound 09/29/2024 10:4 3 AM EDT Narrative 09/29/2024 12:22 PM EDT PAT NAME: NILSON MESSER MED REC#: [id number] DA: [id number] PAT GEND: F PAT TYPE: O EXAM GURMEET: [id number] REF PHYS ROSANGELA GRIMM Indication ======== history [...] compared to the prior ultrasound study dated 09/21/24 Method ======= Voluson E6, Transabdominal ultrasound examination. View: Sufficient ========= Romero . Number of fetuses: 1 Dating ====== GA by prior assessment 35 w + 5 d MELANI by prior assessment: 10/29/2024 Method of dating: Restore dating from previous exam Previous dating: based on stated MELANI, selected on 08/04/2024 Agreed MELANI of previous datin10/30/2024 Assigned: based on stated MELANI, selected on 08/04/2024 Assigned GA 35 w + 4 d Assigned MELANI: 10/30/2024 length 280 d General Evaluation Cardiac activity present. FHR 132 bpm. movements visualized. Presentation cephalic. Placenta Placental site: anterior. Amniotic Fluid Assessment Amount of AF: polyhydramnios MVP 11.6 cm. GRABIEL 27.1 cm. Q1 11.6 cm, Q2 9.7 cm, Q3 4.8 cm, Q4 1.1 cm Biophysical Profile 2: breathing movements 2: Gross body movements 2: tone 2: Amniotic fluid volume 11/05 Biophysical profile score Anatomy Gender: female. Impression ========= BPP 11/05. Mild polyhydramnios is seen with MVP of 11.6 cm and GRABIEL of 27.1 cm. Recommendation Continue testing. Managed Care Specialist: Debo Guerrero RDMS Physician: Ahsley Cruz MD Electronically signed by: Ashley Cruz MD at: 12:22 Procedure Note Ashley Cruz MD - 09/29/2024 PAT NAME: NILSON MESSER MED REC#: [id number] DA: 1990 PAT GEND: F PAT TYPE: O EXAM GURMEET: [id number] REF PHYS ROSANGELA GRIMM Indication ======== history [...] are compared to the prior ultrasound studydated 09/21/24 Method ======= Voluson E6, Transabdominal ultrasound examination. View: Sufficient ========= Romero . Number of fetuses: 1 Dating ====== GA by prior [id number] w + 5 d MELANI by prior assessment:10/29/2024 Method of dating:Restore dating from previous exam Previous dating:based on stated MELANI, selected on 08/04/2024 Agreed MELANI of previous datin10/30/2024 Assigned:based on stated MELANI, selected on 08/04/2024 Assigned GA35 w + 4 d Assigned MELANI:10/30/2024 d General Evaluation Cardiac activity present. FHR 132 bpm. movements visualized. Presentation cephalic. Placenta Placental site: anterior. Amniotic Fluid Assessment Amount of AF: polyhydramnios MVP 11.6 cm. GRABIEL 27.1 cm. Q1 11.6 cm, Q2 9.7 cm, Q3 4.8 cm, Q4 1.1 cm Biophysical Profile 2: breathing movements 2: Gross body movements 2: tone 2: Amniotic fluid volume 11/05 Biophysical profile score Anatomy Gender: female. Impression ========= BPP 11/05. Mild polyhydramnios is seen with MVP of 11.6 cm and GRABIEL of 27.1cm. Recommendation Continue testing. Managed Care Specialist: Debo Guerrero RDMS Physician: Ashley Cruz MD Electronically signed by: Ashley Cruz MD at: 12:22 us Rosanglea Grimm [facility] ORDERABLES Final Resul t documented in this encounter Visit Diagnoses Diagnosis 32 weeks gestation of Supervision of high risk in third trimester History of eclampsia Opioid dependence in remission Opioid type dependence, in remission Previous section Other postprocedural status Hepatitis C virus infection in mother during - undetectable quant documented in this encounter Care Teams Pension Examiner Relationship Specialty Start Date End Date Provider, [place] [address] PCP - General 12/16/15 documented as of this encounter
--- OUTSIDE RECORDS SUMMARY | 2024-10-08 08:57 | XMS_ITS | Encounter Summary ---
Author Organization [facility] Address [address] [place] [address] Care Team Providers Care Precision Filer Hand Name Role Phone Provider, No Known Primary Care Provider [phone] Reason for Referral * Diagnostic Imaging (Routine) [...] Profile;Without Non-Stress Testing Rosangela Grimm CNM [address] [place] [address] Phone: tel: fax: [facility] [address] [place] [phone] Phone: tel: fax: Referral ID Status Reason Start Date Expiration Date V isits Requested Visits Authorized [id number] Authorized 09/06/2024 12/06/2025 8 8 Reason for [...] Profile;Without Non-Stress Testing Rosangela Grimm, KAREEM [address] [facility] [address] [place] [address] Phone: tel: fax: [facility] [address] [place] [address] Phone: tel: fax: Referral ID Status Reason Start Date Expiration Date V isits Requested Visits Authorized [id number] Authorized 09/06/2024 12/06/2025 8 8 Encounter Details Date Type Department Care Team (Latest Contact Info) Description 10/08/2024 8:57 AM EDT Hospital Encounter [facility] [phone] 32 weeks gestation of ; Supervision of [...] drink = 0.6 oz pur e alcohol) [facility] Utilities Answer Date Recorded In the past 12 months has [employer], gas, oil, or water [employer] threatened to shut off services in your [...] care, and heating? Not very hard 10/20/2024 [facility] [place] of Occupat ional Health - Occupational Stress [...] things needed for daily living? No 10/20/2024 [place] Depression Scale Answer Date Recorded [place] Depression Scale Total 3 11/04/2024 The thought [...] GED or equivalent No 10/20/2024 Preferred Language Barbadian 10/20/2024 PHQ-2 Answer Date Recorded Patient Health [...] 10/20/2024 7:47 AM Sayda Rodriguez RN * [place] Suicide Severity Rating Scale (Screener/Recent Self-Report) Question [...] Comments US BIOPHYSICAL PROFILE;WITHOUT NON-STRESS TESTING Routine 10/08/2024 9:20 AM EDT 32 weeks gestation of Supervision of high risk in third trimester History of eclampsia Opioid dependence in remission Previous section Hepatitis C virus infection in mother during - undetectable quant documented in this encounter Results * US Biophysical Profile;Without Non-Stress Testing (10/08/2024 9:20 AM EDT) Anatomical Region Laterality Modality Body Ultrasound 10/08/2024 9:03 AM EDT Narrative 10/08/2024 1:06 PM EDT PAT NAME: NILSON MESSER MED REC#: [id number] DA: [id number] PAT GEND: F PAT TYPE: O EXAM GURMEET: [id number] REF PHYS ROSANGELA GRIMM Indication ======== BPP, history of pre eclampsia , on subutex [...] compared to the prior ultrasound study dated 09/29/2024 Method ======= Voluson E6, Transabdominal ultrasound examination. View: Sufficient ========= Romero . Number of fetuses: 1 Dating ====== Method of dating: Restore dating from previous exam Previous dating: based on stated MELANI, selected on 08/04/2024 Agreed MELANI of previous datin10/30/2024 Assigned: based on stated MELANI, selected on 08/04/2024 Assigned GA 36 w + 6 d Assigned MELANI: 10/30/2024 length 280 d General Evaluation Cardiac activity present. FHR 131 bpm. movements visualized. Presentation cephalic. Placenta Placental site: anterior. Amniotic Fluid Assessment Amount of AF: polyhydramnios MVP 11.0 cm. GRABIEL 29.7 cm. Q1 7.2 cm, Q2 6.1 cm, Q3 5.4 cm, Q4 11.0 cm Biophysical Profile 2: breathing movements 2: Gross body movements 2: tone 2: Amniotic fluid volume 11/05 Biophysical profile score Anatomy Gender: female. Impression ========= Mild polyhydramnios is seen. BPP 88. Recommendation Continue the routine schedule of testing for the condition being monitored. Protective Services Officer: Paty Lowe RDMS Physician: Ashley Cruz MD Electronically signed by: Ashley Cruz MD at: 13:06 Procedure Note Ashley Cruz MD - 10/08/2024 PAT NAME: NILSON MESSER MED REC#: [id number] DA: 1990 PAT GEND: F PAT TYPE: O EXAM GURMEET: [id number] REF PHYS ROSANGELA GRIMM Indication ======== BPP, history of pre eclampsia , on subutex Dx: 32 weeks gestation of [Z3A.32 (ICD-10-CM)]; Supervision ofhigh risk in third trimester [O09.93 (ICD-10-CM)]; History ofeclampsia [Z87.59 (ICD-10-CM)]; Opioid dependence in remission [F11.21 (ICD-10-CM)];Previous section [Z98.891 (ICD-10-CM)]; Hepatitis C virusinfection in mother during - undetectable quant [O98.419, B19.20 (ICD-10-CM)] Comparison Studies The findings of this study are compared to the prior ultrasound studydated 09/29/2024 Method ======= Voluson E6, Transabdominal ultrasound examination. View: Sufficient ========= Romero . Number of fetuses: 1 Dating ====== Method of dating:Restore dating from previous exam Previous dating:based on stated MELANI, selected on 08/04/2024 Agreed MELANI of previous datin10/30/2024 Assigned:based on stated MELANI, selected on 08/04/2024 Assigned GA36 w + 6 d Assigned MELANI:10/30/2024 [id number] d General Evaluation Cardiac activity present. FHR 131 bpm. movements visualized. Presentation cephalic. Placenta Placental site: anterior. Amniotic Fluid Assessment Amount of AF: polyhydramnios MVP 11.0 cm. GRABIEL 29.7 cm. Q1 7.2 cm, Q2 6.1 cm, Q3 5.4 cm, Q4 11.0 cm Biophysical Profile 2: breathing movements 2: Gross body movements 2: tone 2: Amniotic fluid volume 11/05 Biophysical profile score Anatomy Gender: female. Impression ========= Mild polyhydramnios is seen. BPP /8. Recommendation Continue the routine schedule of testing for the condition beingmonitored. Protective Services Officer: Paty Lowe RDMS Physician: Ashley Cruz MD Electronically signed by: Ashley Cruz MD at: 13:06 Rosangela Grimm [facility] ORDERABLES Final Resul t documented in this encounter Visit Diagnoses Diagnosis 32 weeks gestation of Supervision of high risk in third trimester History of eclampsia Opioid dependence in remission Opioid type dependence, in remission Previous section Other postprocedural status Hepatitis C virus infection in mother during - undetectable quant documented in this encounter Care Teams Precision Filer Hand Relationship Specialty Start Date End Date Provider, No Known [place], [place] [id number] PCP - General 12/16/15 documented as of this encounter
--- OUTSIDE RECORDS SUMMARY | 2024-10-15 09:33 | XMS_ITS | Encounter Summary ---
Author Organization [facility] Address [address] [place] [address] Care Team Providers Care Machine Repairer Name Role Phone Provider, No Known Primary Care Provider [phone] Reason for Referral * Diagnostic Imaging (Routine) - Closed Specialty Diagnoses / Procedures Referred By Contac t Referred To Contact Obstetrics and Gynecology Diagnoses Gestational diabetes mellitus (GDM) in third trimester, gestational diabetes method of control unspecified Procedures US Ob Follow Up Transabdominal Approach Ashley Clements MD [address] [facility] [address] [place] [address] Phone: tel: fax: [facility] [address] [facility] [address] [place] [address] Phone: tel: fax: Referral ID Status Reason Start Date Expiration Date Visits Re quested Visits Authorized [id number] Closed 10/08/2024 01/07/2026 1 1 * Diagnostic Imaging (Routine) - Authorized Specialty Diagnoses / Procedures Referred By Contact Referred To Contact Obstetrics and Gynecology Diagnoses 32 weeks gestation of Supervision of high risk in third trimester History of pre-eclampsia in prior , currently Opioid dependence in remission Previous section Hepatitis C virus infection in mother during Procedures US Biophysical Profile;Without Non-Stress Testing Rosangela Melchor CNM [address] [facility] [address] [place] [address] Phone: tel: fax: [facility] [address] [address] Phone: tel: fax: Referral ID Status Reason Start Date Expiration Date V isits Requested Visits Authorized [id number] Authorized 09/06/2024 12/06/2025 8 8 Reason for Visit * Diagnostic Imaging (Routine) - Closed Specialty Diagnoses / Procedures Referred By Kiya dejesus Referred To Contact Obstetrics and Gynecology Diagnoses Gestational diabetes mellitus (GDM) in third trimester, gestational diabetes method of control unspecified Procedures Ob Follow Up Transabdominal Approach Ashley Clements MD [address] [facility] [address] [place] [address] Phone: tel: fax: [facility] [address] [address] Phone: tel: fax: Referral ID Status Reason Start Date Expiration Date Visits Re quested Visits Authorized [id number] Closed 10/08/2024 01/07/2026 1 1 Encounter Details Date Type Department Care Team (Latest Contact Info) Description 10/15/2024 9:33 AM EDT Hospital Encounter [facility] [phone] 32 weeks gestation of ; Supervision of high risk in third trimester; History of eclampsia; Opioid dependence in remission; Previous section; Hepatitis C virus infection in mother during - undetectable quant; Gestational diabetes mellitus (GDM) in third trimester, gestational diabetes method of control unspecified Social History Tobacco Use Types Packs/Day Years Used Date Smoking Tobacco: Every Day Cigarettes 1 5 Smokeless Tobacco: Never Alcohol Use Standard Drinks/Week Comments Never 0 (1 standard drink = 0.6 oz pur e alcohol) [facility] Utilities Answer Date Recorded In the past 12 months has th e electric, gas, oil, or water [employer] threatened to shut off services in your [...] care, and heating? Not very hard 10/20/2024 [facility] [place] of Occupat ional Health - Occupational Stress [...] things needed for daily living? No 10/20/2024 [place] Depression Scale Answer Date Recorded [place] Depression Scale Total 3 11/04/2024 The thought [...] GED or equivalent No 10/20/2024 Preferred Language Swazi 10/20/2024 PHQ-2 Answer Date Recorded Patient Health [...] 7:47 AM EDT Sayda Arredondo RN * [place] Suicide Severity Rating Scale (Screener/Recent Self-Report) Question [...] Comments US BIOPHYSICAL PROFILE;WITHOUT NON-STRESS TESTING Routine 10/15/2024 10:37 AM EDT 32 weeks gestation of Supervision of high risk in third trimester History of eclampsia Opioid dependence in remission Previous section Hepatitis C virus infection in mother during - undetectable quant US OB FOLLOW UP TRANSABDOMINAL APPROACH Routine 10/15/2024 10:37 AM EDT Gestational diabetes mellitus (GDM) in third trimester, gestational diabetes method of control unspecified documented in this encounter Results * US Ob Follow Up Transabdominal Approach (10/15/2024 10:37 AM EDT) Anatomical Region Laterality Modality Body Ultrasound 10/15/2024 10:1 8 AM EDT Narrative 10/15/2024 12:29 PM EDT PAT NAME: NILSON MESSER MED REC#: [id number] DA: 1990 PAT GEND: F PAT TYPE: O EXAM GURMEET: <OBR.7.1>[id number]</OBR.7.1><OBR.7.1>[id number]</OBR.7.1> REF PHYS ASHLEY CLEMENTS Indication ======== history of pre eclampsia , [...] compared to the prior ultrasound study dated History ====== Previous Outcomes 2 Para 1 Method ======= Voluson E6, Transabdominal ultrasound examination ========= Romero . Number of fetuses: 1 Dating ====== Ultrasound examination on: 10/15/2024 GA by U/S based upon: AC, BPD, Femur, HC GA by U/S 36 w + 6 d MELANI by U/S: 11/06/2024 Method of dating: Restore dating from previous exam Previous dating: based on stated MELANI, selected on 08/04/2024 Agreed MELANI of previous datin10/30/2024 Assigned: based on stated MELANI, selected on 08/04/2024 Assigned GA 37 w + 6 d Assigned MELANI: 10/30/2024 length 280 d General Evaluation Cardiac activity present. FHR 142 bpm. movements visualized. Presentation cephalic. Placenta Placental site: anterior. Amniotic fluid Amount of AF: polyhydramnios. MVP 8.7 cm. GRABIEL 26.4 cm. Q1 4.3 cm, Q2 5.1 cm, Q3 8.7 cm, Q4 8.4 cm. Biophysical Profile 2: breathing movements 2: Gross body movements 2: tone 2: Amniotic fluid volume /8 Biophysical profile score Biometry Standard BPD 88.5 mm 35w 5d 17% Hadlock OFD 116.2 mm -/- 85% Hugo HC 330.3 mm 37w 4d 23% Hadlock AC 337.0 mm 37w 4d 60% Hadlock Femur 70.8 mm 36w 2d 16% Hadlock HC / AC 0.98 EFW 3,110 g 37w 3d 41% Hadlock EFW (lb) 6 lb EFW (oz) 14 oz EFW by: Hadlock (QXW-BL-YF-FL) Other: An ultrasound for weight has a margin of error of up to twenty percent. Head / Face / Neck Cephalic index 0.76 4% Nicolaides Extremities / Bony Struc FL / BPD 0.80 FL / HC 0.21 FL / AC 0.21 Other Structures FHR 142 bpm Anatomy Lateral ventricles: Appears normal 4-chamber view: Appears normal Stomach: Appears normal Kidneys: Appears normal Bladder: Appears normal Gender: female Wants to know gender: yes Impression ========= BPP 8/8 with polyhydramnios present, though GRABIEL is smaller than last ultrasound. EFW is normal today. Recommendation Continue the routine schedule of testing for the condition being monitored. Indication ======== history of pre eclampsia , [...] compared to the prior ultrasound study dated History ====== Previous Outcomes 2 Para 1 Method ======= Voluson E6, Transabdominal ultrasound examination ========= Romero . Number of fetuses: 1 Dating ====== Ultrasound examination on: 10/15/2024 GA by U/S based upon: AC, BPD, Femur, HC GA by U/S 36 w + 6 d MELANI by U/S: 11/06/2024 Method of dating: Restore dating from previous exam Previous dating: based on stated MELANI, selected on 08/04/2024 Agreed MELANI of previous datin10/30/2024 Assigned: based on stated MELANI, selected on 08/04/2024 Assigned GA 37 w + 6 d Assigned MELANI: 10/30/2024 length 280 d General Evaluation Cardiac activity present. FHR 142 bpm. movements visualized. Presentation cephalic. Placenta Placental site: anterior. Amniotic fluid Amount of AF: polyhydramnios. MVP 8.7 cm. GRABIEL 26.4 cm. Q1 4.3 cm, Q2 5.1 cm, Q3 8.7 cm, Q4 8.4 cm. Biophysical Profile 2: breathing movements 2: Gross body movements 2: tone 2: Amniotic fluid volume 11/05 Biophysical profile score Biometry Standard BPD 88.5 mm 35w 5d 17% Hadlock OFD 116.2 mm -/- 85% Hugo HC 330.3 mm 37w 4d 23% Hadlock AC 337.0 mm 37w 4d 60% Hadlock Femur 70.8 mm 36w 2d 16% Hadlock HC / AC 0.98 EFW 3,110 g 37w 3d 41% Hadlock EFW (lb) 6 lb EFW (oz) 14 oz EFW by: Hadlock (JGV-EA-RF-FL) Other: An ultrasound for weight has a margin of error of up to twenty percent. Head / Face / Neck Cephalic index 0.76 4% Nicolaides Extremities / Bony Struc FL / BPD 0.80 FL / HC 0.21 FL / AC 0.21 Other Structures FHR 142 bpm Anatomy Lateral ventricles: Appears normal 4-chamber view: Appears normal Stomach: Appears normal Kidneys: Appears normal Bladder: Appears normal Gender: female Wants to know gender: yes Impression ========= BPP 8/8 with polyhydramnios present, though GRABIEL is smaller than last ultrasound. EFW is normal today. Recommendation Continue the routine schedule of testing for the condition being monitored. Salon Receptionist: Debo Guerrero RDMS Physician: Ashley Clements MD Electronically signed by: Ashley Clements MD at: 12:29 Procedure Note Ashley Clements MD - 10/15/2024 PAT NAME: NILSON MESSER MED REC#: [id number] DA: 1990 PAT GEND: F PAT TYPE: O EXAM GURMEET:<OBR.7.1>[id number]</OBR.7.1><OBR.7.1>[id number]</OBR.7.1> REF PHYS ASHLEY CLEMENTS Indication ======== history of pre eclampsia , on subutex Dx: 32 weeks gestation of [Z3A.32 (ICD-10-CM)]; Supervision ofhigh risk in third trimester [O09.93 (ICD-10-CM)]; History ofeclampsia [Z87.59 (ICD-10-CM)]; Opioid dependence in remission [F11.21 (ICD-10-CM)];Previous section [Z98.891 (ICD-10-CM)]; Hepatitis C virusinfection in mother during - undetectable quant [O98.419, B19.20 (ICD-10-CM)] Comparison Studies The findings of this study are compared to the prior ultrasound studydated History ====== Previous Outcomes Gravida2 Para1 Method ======= Voluson E6, Transabdominal ultrasound examination ========= Romero . Number of fetuses: 1 Dating ====== Ultrasound examination on:10/15/2024 GA by U/S based upon:AC, BPD, Femur, HC GA by U/S36 w + 6 d MELANI by U/S:11/06/2024 Method of dating:Restore dating from previous exam Previous dating:based on stated MELANI, selected on 08/04/2024 Agreed MELANI of previous datin10/30/2024 Assigned:based on stated MELANI, selected on 08/04/2024 Assigned GA37 w + 6 d Assigned MELANI:10/30/2024 [id number] d General Evaluation Cardiac activity present. FHR 142 bpm. movements visualized. Presentation cephalic. Placenta Placental site: anterior. Amniotic fluid Amount of AF: polyhydramnios. MVP 8.7 cm. GRABIEL 26.4 cm. Q14.3 cm, Q2 5.1 cm, Q3 8.7 cm, Q4 8.4 cm. Biophysical Profile 2: breathing movements 2: Gross body movements 2: tone 2: Amniotic fluid volume 11/05 Biophysical profile score Biometry Standard BPD88.5 mm 35w 5d 17% Hadlock ROO862.2 mm -/- 85% Hugo HC330.3 mm 37w 4d 23% Hadlock AC337.0 mm 37w 4d 60% Hadlock Femur70.8 mm 36w 2d 16% Hadlock HC / AC0.98 EFW3,110 g 37w 3d 41% Hadlock EFW (lb)6 lb EFW (oz)14 oz EFW by:Hadlock (MGW-QE-OB-FL) Other:An ultrasound for weight has a margin of error of up totwenty percent. Head / Face / Neck Cephalic index0.76 4% Nicolaides Extremities / Bony Struc FL / BPD0.80 FL / HC0.21 FL / AC0.21 Other Structures [id number] bpm Anatomy Lateral ventricles:Appears normal 4-chamber view:Appears normal Stomach:Appears normal Kidneys:Appears normal Bladder:Appears normal Gender:female Wants to know gender:yes Impression ========= BPP 11/05 with polyhydramnios present, though GRABIEL is smaller than lastultrasound. EFW is normal today. Recommendation Continue the routine schedule of testing for the condition beingmonitored. Indication ======== history of pre eclampsia , on subutex Dx: 32 weeks gestation of [Z3A.32 (ICD-10-CM)]; Supervision ofhigh risk in third trimester [O09.93 (ICD-10-CM)]; History ofeclampsia [Z87.59 (ICD-10-CM)]; Opioid dependence in remission [F11.21 (ICD-10-CM)];Previous section [Z98.891 (ICD-10-CM)]; Hepatitis C virusinfection in mother during - undetectable quant [O98.419, B19.20 (ICD-10-CM)] Comparison Studies The findings of this study are compared to the prior ultrasound studydated History ====== Previous Outcomes Gravida2 Para1 Method ======= Voluson E6, Transabdominal ultrasound examination ========= Romero . Number of fetuses: 1 Dating ====== Ultrasound examination on:10/15/2024 GA by U/S based upon:AC, BPD, Femur, HC GA by U/S36 w + 6 d MELANI by U/S:11/06/2024 Method of dating:Restore dating from previous exam Previous dating:based on stated MELANI, selected on 08/04/2024 Agreed MELANI of previous datin10/30/2024 Assigned:based on stated MELANI, selected on 08/04/2024 Assigned GA37 w + 6 d Assigned MELANI:10/30/2024 [id number] d General Evaluation Cardiac activity present. FHR 142 bpm. movements visualized. Presentation cephalic. Placenta Placental site: anterior. Amniotic fluid Amount of AF: polyhydramnios. MVP 8.7 cm. GRABIEL 26.4 cm. Q14.3 cm, Q2 5.1 cm, Q3 8.7 cm, Q4 8.4 cm. Biophysical Profile 2: breathing movements 2: Gross body movements 2: tone 2: Amniotic fluid volume 11/05 Biophysical profile score Biometry Standard BPD88.5 mm 35w 5d 17% Hadlock YWR230.2 mm -/- 85% Hugo HC330.3 mm 37w 4d 23% Hadlock AC337.0 mm 37w 4d 60% Hadlock Femur70.8 mm 36w 2d 16% Hadlock HC / AC0.98 EFW3,110 g 37w 3d 41% Hadlock EFW (lb)6 lb EFW (oz)14 oz EFW by:Hadlock (XVQ-HO-QK-FL) Other:An ultrasound for weight has a margin of error of up totwenty percent. Head / Face / Neck Cephalic index0.76 4% Nicolaides Extremities / Bony Struc FL / BPD0.80 FL / HC0.21 FL / AC0.21 Other Structures [id number] bpm Anatomy Lateral ventricles:Appears normal 4-chamber view:Appears normal Stomach:Appears normal Kidneys:Appears normal Bladder:Appears normal Gender:female Wants to know gender:yes Impression ========= BPP 8/8 with polyhydramnios present, though GRABIEL is smaller than lastultrasound. EFW is normal today. Recommendation Continue the routine schedule of testing for the condition beingmonitored. Salon Receptionist: Debo Guerrero RDMS Physician: Ashley Clements MD Electronically signed by: Ashley Clements MD at: 12:29 us Ashley Clements MD IMG US ORDERABLES Final Result * US Biophysical Profile;Without Non-Stress Testing (10/15/2024 10:37 AM EDT) Anatomical Region Laterality Modality Body Ultrasound 10/15/2024 10:1 8 AM EDT Narrative 10/15/2024 12:29 PM EDT PAT NAME: NILSON MESSER MED REC#: [id number] DA: 1990 PAT GEND: F PAT TYPE: O EXAM GURMEET: <OBR.7.1>[id number]</OBR.7.1><OBR.7.1>[id number]</OBR.7.1> REF PHYS ASHLEY CLEMENTS Indication ======== history of pre eclampsia , [...] compared to the prior ultrasound study dated History ====== Previous Outcomes 2 Para 1 Method ======= Voluson E6, Transabdominal ultrasound examination ========= Romero . Number of fetuses: 1 Dating ====== Ultrasound examination on: 10/15/2024 GA by U/S based upon: AC, BPD, Femur, HC GA by U/S 36 w + 6 d MELANI by U/S: 11/06/2024 Method of dating: Restore dating from previous exam Previous dating: based on stated MELANI, selected on 08/04/2024 Agreed MELANI of previous datin10/30/2024 Assigned: based on stated MELANI, selected on 08/04/2024 Assigned GA 37 w + 6 d Assigned MELANI: 10/30/2024 length 280 d General Evaluation Cardiac activity present. FHR 142 bpm. movements visualized. Presentation cephalic. Placenta Placental site: anterior. Amniotic fluid Amount of AF: polyhydramnios. MVP 8.7 cm. GRABIEL 26.4 cm. Q1 4.3 cm, Q2 5.1 cm, Q3 8.7 cm, Q4 8.4 cm. Biophysical Profile 2: breathing movements 2: Gross body movements 2: tone 2: Amniotic fluid volume 11/05 Biophysical profile score Biometry Standard BPD 88.5 mm 35w 5d 17% Hadlock OFD 116.2 mm -/- 85% Hugo HC 330.3 mm 37w 4d 23% Hadlock AC 337.0 mm 37w 4d 60% Hadlock Femur 70.8 mm 36w 2d 16% Hadlock HC / AC 0.98 EFW 3,110 g 37w 3d 41% Hadlock EFW (lb) 6 lb EFW (oz) 14 oz EFW by: Hadlock (ORG-OK-MV-FL) Other: An ultrasound for weight has a margin of error of up to twenty percent. Head / Face / Neck Cephalic index 0.76 4% Nicolaides Extremities / Bony Struc FL / BPD 0.80 FL / HC 0.21 FL / AC 0.21 Other Structures FHR 142 bpm Anatomy Lateral ventricles: Appears normal 4-chamber view: Appears normal Stomach: Appears normal Kidneys: Appears normal Bladder: Appears normal Gender: female Wants to know gender: yes Impression ========= BPP 8/8 with polyhydramnios present, though GRABIEL is smaller than last ultrasound. EFW is normal today. Recommendation Continue the routine schedule of testing for the condition being monitored. Indication ======== history of pre eclampsia , [...] compared to the prior ultrasound study dated History ====== Previous Outcomes 2 Para 1 Method ======= Voluson E6, Transabdominal ultrasound examination ========= Romero . Number of fetuses: 1 Dating ====== Ultrasound examination on: 10/15/2024 GA by U/S based upon: AC, BPD, Femur, HC GA by U/S 36 w + 6 d MELANI by U/S: 11/06/2024 Method of dating: Restore dating from previous exam Previous dating: based on stated MELANI, selected on 08/04/2024 Agreed MELANI of previous datin10/30/2024 Assigned: based on stated MELANI, selected on 08/04/2024 Assigned GA 37 w + 6 d Assigned MELANI: 10/30/2024 length 280 d General Evaluation Cardiac activity present. FHR 142 bpm. movements visualized. Presentation cephalic. Placenta Placental site: anterior. Amniotic fluid Amount of AF: polyhydramnios. MVP 8.7 cm. GRABIEL 26.4 cm. Q1 4.3 cm, Q2 5.1 cm, Q3 8.7 cm, Q4 8.4 cm. Biophysical Profile 2: breathing movements 2: Gross body movements 2: tone 2: Amniotic fluid volume 11/05 Biophysical profile score Biometry Standard BPD 88.5 mm 35w 5d 17% Hadlock OFD 116.2 mm -/- 85% Hugo HC 330.3 mm 37w 4d 23% Hadlock AC 337.0 mm 37w 4d 60% Hadlock Femur 70.8 mm 36w 2d 16% Hadlock HC / AC 0.98 EFW 3,110 g 37w 3d 41% Hadlock EFW (lb) 6 lb EFW (oz) 14 oz EFW by: Hadlock (HYL-QS-OU-FL) Other: An ultrasound for weight has a margin of error of up to twenty percent. Head / Face / Neck Cephalic index 0.76 4% Nicolaides Extremities / Bony Struc FL / BPD 0.80 FL / HC 0.21 FL / AC 0.21 Other Structures FHR 142 bpm Anatomy Lateral ventricles: Appears normal 4-chamber view: Appears normal Stomach: Appears normal Kidneys: Appears normal Bladder: Appears normal Gender: female Wants to know gender: yes Impression ========= BPP 8/8 with polyhydramnios present, though GRABIEL is smaller than last ultrasound. EFW is normal today. Recommendation Continue the routine schedule of testing for the condition being monitored. Salon Receptionist: Debo Guerrero RDMS Physician: Ashley Clements MD Electronically signed by: Ashley Clements MD at: 12:29 Procedure Note Ashley Clements MD - 10/15/2024 PAT NAME: NILSON MESSER MED REC#: [id number] DA: 1990 PAT GEND: F PAT TYPE: O EXAM GURMEET:<OBR.7.1>[id number]</OBR.7.1><OBR.7.1>[id number]</OBR.7.1> REF PHYS ASHLEY CLEMENTS Indication ======== history of pre eclampsia , on subutex Dx: 32 weeks gestation of [Z3A.32 (ICD-10-CM)]; Supervision ofhigh risk in third trimester [O09.93 (ICD-10-CM)]; History ofeclampsia [Z87.59 (ICD-10-CM)]; Opioid dependence in remission [F11.21 (ICD-10-CM)];Previous section [Z98.891 (ICD-10-CM)]; Hepatitis C virusinfection in mother during - undetectable quant [O98.419, B19.20 (ICD-10-CM)] Comparison Studies The findings of this study are compared to the prior ultrasound studydated History ====== Previous Outcomes Gravida2 Para1 Method ======= Voluson E6, Transabdominal ultrasound examination ========= Romero . Number of fetuses: 1 Dating ====== Ultrasound examination on:10/15/2024 GA by U/S based upon:AC, BPD, Femur, HC GA by U/S36 w + 6 d MELANI by U/S:11/06/2024 Method of dating:Restore dating from previous exam Previous dating:based on stated MELANI, selected on 08/04/2024 Agreed MELANI of previous datin10/30/2024 Assigned:based on stated MELANI, selected on 08/04/2024 Assigned GA37 w + 6 d Assigned MELANI:10/30/2024 [id number] d General Evaluation Cardiac activity present. FHR 142 bpm. movements visualized. Presentation cephalic. Placenta Placental site: anterior. Amniotic fluid Amount of AF: polyhydramnios. MVP 8.7 cm. GRABIEL 26.4 cm. Q14.3 cm, Q2 5.1 cm, Q3 8.7 cm, Q4 8.4 cm. Biophysical Profile 2: breathing movements 2: Gross body movements 2: tone 2: Amniotic fluid volume 11/05 Biophysical profile score Biometry Standard BPD88.5 mm 35w 5d 17% Hadlock UDA700.2 mm -/- 85% Hugo HC330.3 mm 37w 4d 23% Hadlock AC337.0 mm 37w 4d 60% Hadlock Femur70.8 mm 36w 2d 16% Hadlock HC / AC0.98 EFW3,110 g 37w 3d 41% Hadlock EFW (lb)6 lb EFW (oz)14 oz EFW by:Martha (TGN-AM-MR-FL) Other:An ultrasound for weight has a margin of error of up totwenty percent. Head / Face / Neck Cephalic index0.76 4% Nicolaides Extremities / Bony Struc FL / BPD0.80 FL / HC0.21 FL / AC0.21 Other Structures QQU419 bpm Anatomy Lateral ventricles:Appears normal 4-chamber view:Appears normal Stomach:Appears normal Kidneys:Appears normal Bladder:Appears normal Gender:female Wants to know gender:yes Impression ========= BPP 8/8 with polyhydramnios present, though GRABIEL is smaller than lastultrasound. EFW is normal today. Recommendation Continue the routine schedule of testing for the condition beingmonitored. Indication ======== history of pre eclampsia , on subutex Dx: 32 weeks gestation of [Z3A.32 (ICD-10-CM)]; Supervision ofhigh risk in third trimester [O09.93 (ICD-10-CM)]; History ofeclampsia [Z87.59 (ICD-10-CM)]; Opioid dependence in remission [F11.21 (ICD-10-CM)];Previous section [Z98.891 (ICD-10-CM)]; Hepatitis C virusinfection in mother during - undetectable quant [O98.419, B19.20 (ICD-10-CM)] Comparison Studies The findings of this study are compared to the prior ultrasound studydated History ====== Previous Outcomes Gravida2 Para1 Method ======= Voluson E6, Transabdominal ultrasound examination ========= Romero . Number of fetuses: 1 Dating ====== Ultrasound examination on:10/15/2024 GA by U/S based upon:AC, BPD, Femur, HC GA by U/S36 w + 6 d MELANI by U/S:11/06/2024 Method of dating:Restore dating from previous exam Previous dating:based on stated MELANI, selected on 08/04/2024 Agreed MELANI of previous datin10/30/2024 Assigned:based on stated MELANI, selected on 08/04/2024 Assigned GA37 w + 6 d Assigned MELANI:10/30/2024 [id number] d General Evaluation Cardiac activity present. FHR 142 bpm. movements visualized. Presentation cephalic. Placenta Placental site: anterior. Amniotic fluid Amount of AF: polyhydramnios. MVP 8.7 cm. GRABIEL 26.4 cm. Q14.3 cm, Q2 5.1 cm, Q3 8.7 cm, Q4 8.4 cm. Biophysical Profile 2: breathing movements 2: Gross body movements 2: tone 2: Amniotic fluid volume 11/05 Biophysical profile score Biometry Standard BPD88.5 mm 35w 5d 17% Hadlock SGD769.2 mm -/- 85% Hugo HC330.3 mm 37w 4d 23% Hadlock AC337.0 mm 37w 4d 60% Hadlock Femur70.8 mm 36w 2d 16% Hadlock HC / AC0.98 EFW3,110 g 37w 3d 41% Hadlock EFW (lb)6 lb EFW (oz)14 oz EFW by:Hadlock (EWG-MD-WE-FL) Other:An ultrasound for weight has a margin of error of up totwenty percent. Head / Face / Neck Cephalic index0.76 4% Nicolaides Extremities / Bony Struc FL / BPD0.80 FL / HC0.21 FL / AC0.21 Other Structures [id number] bpm Anatomy Lateral ventricles:Appears normal 4-chamber view:Appears normal Stomach:Appears normal Kidneys:Appears normal Bladder:Appears normal Gender:female Wants to know gender:yes Impression ========= BPP 8/8 with polyhydramnios present, though GRABIEL is smaller than lastultrasound. EFW is normal today. Recommendation Continue the routine schedule of testing for the condition beingmonitored. Salon Receptionist: Debo Guerrero RDMS Physician: Ashley Clements MD Electronically signed by: Ashley Clements MD at: 12:29 Rosangela Melchor [facility] US ORDERABLES Final Resul t documented in this encounter Visit Diagnoses Diagnosis 32 weeks gestation of Supervision of high risk in third trimester History of eclampsia Opioid dependence in remission Opioid type dependence, in remission Previous section Other postprocedural status Hepatitis C virus infection in mother during - undetectable quant Gestational diabetes mellitus (GDM) in third trimester, gestational diabetes method of control unspecified documented in this encounter Care Teams Machine Repairer Relationship Specialty Start Date End Date Provider, No Known [place], [place] [id number] PCP - General 12/16/15 documented as of this encounter
--- OUTSIDE RECORDS SUMMARY | 2024-10-15 10:50 | XMS_ITS | Encounter Summary ---
Author Organization [facility] Address [address] [place] [address] Care Team Providers Care Welder Assistant Name Role Phone Provider, No Known Primary Care Provider Reason for Visit * Reason Comments Routine Visit Ob visit Ultrasound BPP Non-stress Test Encounter Details Date Type Department Care Team (Late st Contact Info) Description 10/15/2024 10:50 AM EDT Routine [facility] O[facility] [address] JOSE DANIEL [address] [place], [place] [id number] Ashley Cruz MD [address] [facility] [address] [place] [address] GA: 37w3d Social History Tobacco Use Types Packs/Day Years Used Date Smoking Tobacco: Every Day Cigarettes 1 5 Smokeless Tobacco: Never Alcohol Use Standard Drinks/Week Comments Never 0 (1 standard drink = 0.6 oz pur e alcohol) AUDIT-C Answer Date Recorded Frequency of Alcohol Consumption Never 04/10/2019 Average Number of Drinks Not on file 020 Frequency of Binge Drinking Not on file 03/31 Comments Yes Sex and Gender Information Value Date Recorded Sex Assigned at Not on file Legal Sex Female 1:47 PM EDT Gender Identity Not on file Sexual Orientation Not on file documented as of this encounter Last Filed Vital Signs Vital Sign Reading Time Taken Comments Blood Pressure 120/76 10/15/2024 10:43 AM EDT Pulse - - Temperature - - Respiratory Rate - - Oxygen Saturation - - Inhaled Oxygen Concentration - - Weight 73.7 kg (162 lb 6.4 oz) 10/15/2024 10:43 AM EDT Height - - Body Mass Index 31.72 11/28/2023 9:39 AM EDT documented in this encounter Progress Notes * Ashley Cruz MD - 10/15/2024 10:50 AM EDT Chief Complaint Patient presents with Routine Visit Ob visit Ultrasound BPP Non-stress Test Sarah Bynum is a 34 y.o. at 37w3d who presents for follow up care. Still has a coughand now has thrush from her inhaler. She denies vaginal bleeding or regular contractions. Baby is moving. Started metformin and blood sugars have been worse. Fastings all elevated in 120s, 1h PP up to 200. is complicated by: - Gestational diabetes on metformin - Polyhydramnios - history of C/S x 1 - history of eclampsia in prior -- 37 weeks, on ASA - History of OUD -- on Subutex, reports good control of symptoms and no recent relapse or withdrawal symptoms. BP 120/76 Wt 73.7 kg (162 lb 6.4 oz) BMI 31.72 kg/m?? General: No acute distress, sitting comfortably CV: Regular heart rate Lungs: Breathing unlabored Abdomen: Soft, nontender, gravid,S=D Pelvic: C/T/H ASSESSMENT/PLAN Routine care - Pap needs - Dating by ultrasound at 12 weeks gestation - labs: RPR positive, 1:1 titer, Hep C + but negative quant, otherwise normal labs - Testing for GC / Chlamydia / trichomonas: neg - Genetic testing: reports NIPT done, but unable to see. Negative Horizon panel - 20 weeks: anatomy ultrasound - reportedly normal at -- cannot see images. - 28 weeks: Tdap - declines, GCT - Declined and did QID blood sugars, H/H, RPR normal - 36 weeks: GBS testing -- done today - Continue vitamins and aspirin 81 mg for preeclampsia prevention 2. Gestational diabetes on metformin - Continue QID blood sugars - Polyhydramnios today, improved from last visit. Normal EFW. - Continue metformin - Will plan on delivery at 38 weeks given worsening blood sugars 3. History of C/S x 1 - Desires repeat C/S + sterilization - will schedule at 38w - Tubal consent signed previously 4. History of preeclampsia and eclampsia - Continue ASA - Baseline preeclampsia labs with mildly elevated alk phos, LDH 454 5. Positive RPR screen - Repeat RPR neg 6. OUD - On Subutex with provider in [place] - testing - BPP 01/07 today NST Read Reason for test: OUD on MAT; GDM Time frame: 8470-1478 Baseline 130 bpm, moderate variability, + accelerations, no decelerations Reactive NST Delivery next week. This note was electronically signed. Ashley Cruz MD Obstetrics and Gynecology [facility] documented in this encounter H&P Notes * Ashley Cruz MD - 10/15/2024 10:50 AM EDT Sarah Bynum : 1990 CSN: [id number] History and Physical Subjective Sarah Bynum is a 34 y.o. year old with an Estimated Date of Delivery: 11/02/24 scheduled for delivery due to previous C/S - declines . Her placental location is anterior. She is planning for sterilization at the time of the . care has been with Dr. Cruz. is complicated by: - Gestational diabetes on metformin - Polyhydramnios - history of C/S x 1 - history of eclampsia in prior -- 37 weeks, on ASA - History of OUD -- on Subutex, reports good control of symptoms and no recent relapse or withdrawal symptoms. OB History Para Term AB Living 2 1 1 0 0 1 SAB IAB Ectopic Molar Multiple Live Births 0 0 0 0 0 1 # Outcome Date GA Lbr Ghassan/2nd Weight Sex Type Anes PTL Lv 2 Current 1 Term 06/10/14 37w0d 3345 g (7 lb 6 oz) M CS-Unspec TRAE Complications: Preeclampsia Name: Chance Past Medical History: Diagnosis Date Allergic Ovarian cyst Sciatica Past Surgical History: Procedure Laterality Date SECTION Current Outpatient Medications: ALLERGY RELIEF 50 MCG/ACT nasal spray, , Disp: , Rfl: 1 aspirin 81 MG EC tablet, Take 1 tablet by mouth Daily., Disp: , Rfl: budesonide-formoterol (SYMBICORT) 80-4.5 MCG/ACT inhaler, Inhale 1 puff 2 (Two) Times a Day., Disp:, Rfl: buprenorphine (SUBUTEX) 8 MG sublingual tablet SL tablet, Place 3 tablet under tongue once a day, Disp: , Rfl: metFORMIN (GLUCOPHAGE) 500 MG tablet, Take 1 tablet by mouth 2 (Two) Times a Day With Meals for 90 days., Disp: 60 tablet, Rfl: 2 Allergies Allergen Reactions Omnicef [Cefdinir] Other (See Comments) Chest tightness Amoxicillin Other (See Comments) thrush Social History Tobacco Use Smoking status: Every Day Packs/day: 1.00 Years: 1 pack/day for 5.0 years (5.0 ttl pk-yrs) Types: Cigarettes Smokeless tobacco: Never Review of Systems All other systems reviewed and are negative. Objective BP 120/76 Wt 73.7 kg (162 lb 6.4 oz) BMI 31.72 kg/m?? General: well developed; well nourished no acute distress mentation appropriate Heart: Not performed. Lungs: breathing is unlabored Abdomen: soft, non-tender; no masses fundus firm and non-tender Labs Lab Results Component Value Date HGB 12.1 08/20/2024 HEPBSAG Negative 03/22/2024 ABORH A Positive 11/19/2023 ABSCRN Negative 08/20/2024 [id number] Non Reactive 03/22/2024 Recent Labs Lab Results Component Value Date HGB 12.1 08/20/2024 HCT 33.9 (L) 08/20/2024 WBC 10.57 08/20/2024 PLT 203 08/20/2024 Assessment IUP with an Estimated Date of Delivery: 11/02/24 Planned section for previous C/S - declines Plan Repeat with bilateral salpingectomy ABx and DVT prophylaxis - Omnicef allergy Ashley Cruz MD 10/15/2024 documented in this encounter Plan of Treatment Not on file documented as of this encounter Procedures Procedure Name Priority Date/Time Associated Diagnosis Comments POCT URINALYSIS DIPSTICK, MANUAL Routine 10/15/2024 10:56 AM EDT documented in this encounter Results * (ABNORMAL) POC Urinalysis Dipstick (10/15/2024 10:56 AM EDT) Glucose, UA Negative Negative mg/dL Protein, POC Trace(A) Negative mg/dL Urine 10/15/2024 10:5 6 AM EDT Historical Provider POINT OF CARE TEST ORDERA BLES Final Result * Strep B Screen - Swab, Vaginal/Rectum (10/15/2024) Swab Rectum and vagina, CS / Unknown Ashley Cruz MD MICROBIOLOGY - GENERAL ORDERABLE S Final Result [facility] [place] [address] documented in this encounter Visit Diagnoses Diagnosis Previous section- Primary Other postprocedural status Supervision of high risk in third trimester Gestational diabetes mellitus (GDM) in third trimester controlled on oral hypoglycemic drug History of eclampsia Opioid dependence in remission Opioid type dependence, in remission documented in this encounter Care Teams Welder Assistant Relationship Specialty Start Date End Date Provider, [place] [address] PCP - General 12/16/15 documented as of this encounter
--- OUTSIDE RECORDS SUMMARY | 2024-10-20 07:08 | XMS_ITS | Encounter Summary ---
Author Organization 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 Name Role Phone Provider, No Known Primary Care Provider [phone] Reason for Visit * Reason Comments Scheduled * Auth/Cert Specialty Diagnoses / Procedures Referred By Contac t Referred To Contact Diagnoses Diet controlled gestational diabetes mellitus (GDM) in third trimester Supervision of high risk in third trimester Diet controlled gestational diabetes mellitus (GDM) in third trimester [O24.410] Supervision of high risk in third trimester [O09.93] Procedures SECTION REPEAT WITH TUBAL Referral ID Status Reason Start Date Expiration Date Visits Re quested Visits Authorized [id number] 1 1 Encounter Details Date Type Department Care Team (Late st Contact Info) Description 10/20/2024 7:08 AM EDT - 10/23/2024 2:39 PM EDT Hospital Encounter [facility] [address] [place] [id number] Ashley Cruz MD [address] [facility] [address] [place] [address] care following delivery (Primary Dx); Previous section; Request for sterilization Discharge Disposition: Home or Self Care Social History Tobacco Use Types Packs/Day Years Used Date Smoking Tobacco: Every Day Cigarettes 1 5 Smokeless Tobacco: Never Tobacco Cessation:Ready to Q uit: Not Asked; Counseling Given: Not Answered Alcohol Use Standard Drinks/Week Comments Never 0 (1 standard drink = 0.6 oz pur e alcohol) [facility] Utilities Answer Date Recorded In the [...] care, and heating? Not very hard 10/20/2024 [facility] - Occupational Stress [...] things needed for daily living? No 10/20/2024 [place] Depression Scale Answer Date Recorded [place] Depression Scale Total 18 10/21/2024 The thought of harming myself has occurred to me . Never 10/21/2024 Abuse Screen Answer Date Recorded Feels Unsafe [...] GED or equivalent No 10/20/2024 Preferred Language Tajik 10/20/2024 PHQ-2 Answer Date Recorded Patient Health Questionnaire-2 Score 0 10/20/2024 Comments No Sex and Gender Information Value Date Recorded Sex Assigned at Not on file Legal Sex Female 1:47 PM EDT Gender Identity Not on file Sexual Orientation Not on file documented as of this encounter Last Filed Vital Signs Vital Sign Reading Time Taken Comments Blood Pressure 117/65 10/23/2024 8:32 AM EDT Pulse 65 10/23/2024 8:32 AM EDT Temperature 37 C (98.6 F) 10/23/2024 8:32 AM EDT Respiratory Rate 16 10/23/2024 8:32 AM EDT Oxygen Saturation 100% 10/20/2024 12:30 PM EDT Inhaled Oxygen Concentration - - Weight 72.6 kg (160 lb) 10/20/2024 7:44 AM EDT Height 152.4 cm (5') 10/20/2024 7:44 AM EDT Body Mass Index 31.25 10/20/2024 7:44 AM EDT documented in this encounter Functional Status * Audit-C Score Answer Date of Assessment Author 0 10/20/2024 7:53 AM EDT Sayda Chen RN * Question Answer Date of Assessment Author Q1: How often do you have a drink containing alcohol? Never 10/20/2024 7:53 AM EDT Sayda Chen RN Q2: How many drinks containing alcohol do you have on a typical day when you are drinking? Patient does not drink 10/20/2024 7:53 AM EDT Sayda Chen RN Q3: How often do you have six or more drinks on one occasion? Never 10/20/2024 7:53 AM EDT Sayda Chen RN * Over the past 2 weeks, how often have you been bothered by any of the following problems? Question Answer Date of Assessment Author Patient Health Questionnaire -2 Score 0 10/20/2024 7:53 AM EDT Sayda Chen RN * Question Answer Date of Assessment Author 1. Wish to be (Past 1 Month) No 10/20/2024 7:47 AM EDT Kristin Chen RN 2. Non-Specific Active Suici cory Thoughts (Past 1 Month) No 10/20/2024 7:47 AM EDT Neno Chen RN * Calculated C-SSRS Risk Score (Lifetime/Recent) Answer Date of Assessment Author No Risk Indicated 10/20/2024 7:47 AM ADRIANAT Sayda Arredondo RN * Todd Suicide Severity Rating Scale (Screener/Recent Self-Report) Question Answer Date of Assessment Author 6. Suicidal Behavior (Lifetime) No 7:47 AM Sayda Cummings RN * Question Answer Date of Assessment Author Little interest or pleasure in doing things Not at all 10/20/2024 7:53 AM Sayda Cummings RN Feeling down, depressed, or hopeless Not at all 10/20/2024 7:53 AM ADRIANAT Sayda Chen RN documented as of this encounter Discharge Summaries * Sosa Villavicencio APRN - 10/23/2024 1:15 PM EDT Discharge Summary Date of Admission: 10/20/2024 Date of Discharge: 10/23/2024 Patient: Sarah Bynum MR#:[id number] Delivery Provider: Ashley Cruz Presenting Problem/History of Present Illness Diet controlled gestational diabetes mellitus (GDM) in third trimester [O24.410] Supervision of high risk in third trimester [O09.93] Gestational diabetes mellitus (GDM) [O24.419] care following delivery [Z39.2] Gestational diabetes mellitus (GDM) care following delivery Discharge Diagnosis: csection at 38w1d Procedures: , Low Transverse 10/20/2024 9:44 AM Hospital Course Patient is a 34 y.o. female at 38w1d with gestational diabetes on metformin status post repeat csection without complication. the patient did well. She remained afebrile, with vital signs stable. She was ready for discharge on day 3. : female fetus 3565 g (7 lb 13.8 oz) with scores of 8 , 9 at five minutes. Condition on Discharge: Stable Vital Signs Temp: [97.5 ??F (36.4 ??C)-98.6 ??F (37 ??C)] 98.6 ??F (37 ??C) Heart Rate: [61-71] 65 Resp: [16-20] 16 BP: (117-140)/(58-75) 117/65 Lab Results Component Value Date WBC 9.55 10/21/2024 HGB 8.4 (L) 10/21/2024 HCT 25.1 (L) 10/21/2024 MCV 90.3 10/21/2024 PLT 208 10/21/2024 Discharge Disposition Home or Self Care Discharge Medications Discharge Medications New Medications Instructions Start Date ferrous sulfate 325 (65 FE) MG tablet 325 mg, Oral, Daily With Breakfast ibuprofen 600 MG tablet Commonly known as: ADVIL,MOTRIN 600 mg, Oral, Every 6 Hours naloxone 4 MG/0.1ML nasal spray Commonly known as: NARCAN Call 911. Don't prime. Brokaw in 1 nostril for overdose. Repeat in 2-3 minutes in other nostril if no or minimal breathing/responsiveness. oxyCODONE 5 MG immediate release tablet Commonly known as: ROXICODONE 5 mg, Oral, Every 6 Hours PRN Changes to Medications Instructions Start Date buprenorphine 8 MG sublingual tablet SL tablet Commonly known as: SUBUTEX What changed: See the new instructions. 1.5 tablets/day (12 mg/day) Continue These Medications Instructions Start Date Allergy Relief 50 MCG/ACT nasal spray Generic drug: fluticasone budesonide-formoterol 80-4.5 MCG/ACT inhaler Commonly known as: SYMBICORT 1 puff, 2 Times Daily Stop These Medications aspirin 81 MG EC tablet metFORMIN 500 MG tablet Commonly known as: GLUCOPHAGE Follow-up Appointments Future Appointments Date Time Provider Department Center 11/04/2024 10:50 AM Ashley Cruz MD [facility] 12/02/2024 11:10 AM Ashley Cruz MD [facility] Additional Instructions for the Follow-ups that You Need to Schedule Discharge Follow-up with Specified Provider: daryn; 2 Weeks As directed To: daryn Follow Up: 2 Weeks Sosa Villavicencio APRN 10/23/24 13:15 EDT Csd Cosigned by Ashley Cruz MD at 10/25/2024 7:52 AM EDT Associated attestation - Ashley Cruz MD - 10/25/2024 7:52 AM EDT I have reviewed this documentation and agree. Ashley Cruz MD Obstetrics and Gynecology [facility] documented in this encounter Medications at Time of Discharge buprenorphine (SUBUTEX) 8 MG sublingual tablet SL tablet 1.5 tablets/day (12 mg/day) naloxone (NARCAN) 4 MG/0.1ML nasal spray Call 911. Don't prime. Brokaw in 1 nostril for overdose. Repeat in 2-3 minutes in other nostril if no or minimal breathing/resp onsiveness. 2 each 10/23/2024 2:06 PM EDT 10/23/2024 oxyCODONE (ROXICODONE) 5 MG immediate release tabletIndication s: care following delivery Take 1 tablet by mouth Every 6 (Six) Hours As Needed for Moderate Pain for up to 3 days. 12 tablet 10/23/2024 2:06 PM EDT 10/23/2024 10/26/2024 ALLERGY RELIEF 50 MCG/ACT nasal spray 1 01/01/2018 11/04/2024 budesonide-formo terol (SYMBICORT) 80-4.5 MCG/ACT inhaler Inhale 1 puff 2 (Two) Times a Day. 09/02/2024 11/04/2024 ferrous sulfate 325 (65 FE) MG tablet Take 1 tablet by mouth Daily With Breakfast. 30 tablet 1 10/23/2024 2:06 PM EDT 10/23/2024 11/04/2024 ibuprofen (ADVIL,MOTRIN) 600 MG tablet Take 1 tablet by mouth Every 6 (Six) Hours. 30 tablet 10/23/2024 2:06 PM EDT 10/23/2024 11/04/2024 documented as of this encounter Progress Notes * Sosa Villavicencio, TIMEKEEPER - 10/23/2024 10:30 AM EDT 10/23/2024 Name:Sarah Bynum MR#:[id number] PROGRESS NOTE: Post-Op 3 S/P HD:3 Subjective 34 y.o. yo Female s/p CS at 38w1d doing well. Pain well controlled. Tolerating regular dietand having flatus. Lochia normal. Gestational diabetes mellitus (GDM) care following delivery Objective Vitals Temp: Temp: [97.5 ??F (36.4 ??C)-98.6 ??F (37 ??C)] 98.6 ??F (37 ??C) Temp src: Oral BP: BP: (117-140)/(58-75) 117/65 Pulse: Heart Rate: [61-71] 65 RR: Resp: [16-20] 16 General Awake, alert, no distress Abdomen Soft, non-distended, fundus firm, below umbilicus, appropriately tender Incision Intact, no erythema or exudate Extremities Calves NT bilaterally I/O last 3 completed shifts: In: - Out: 1700 [Urine:1700] LABS: Lab Results Component Value Date WBC 9.55 10/21/2024 HGB 8.4 (L) 10/21/2024 HCT 25.1 (L) 10/21/2024 MCV 90.3 10/21/2024 PLT 208 10/21/2024 : female Assessment 1. POD 3, doing well 2. GDMA2--- fingersticks dc'd 3. MOHAN on Subutex--- wants to stay another day with baby Plan: Routine postoperative care Active Problems: None Sosa Villavicencio APRN 10/23/2024 10:31 EDT * Ashley Cruz MD - 10/22/2024 8:33 AM EDT Willard Bynum : 1990 CSN: [id number] Hospital Day: 3 Post-operative Day #2 Subjective CC: hospital follow-up Her pain is well controlled. Vaginal bleeding is normal in amount. She is ambulating without difficulty. She is passing gas. She is voiding without difficulty. She is bottle feeding. Her baby is doing well. Objective Min/max vitals past 24 hours: Temp Min: 97.5 ??F (36.4 ??C) Max: 98.4 ??F (36.9 ??C) BP Min: 112/62 Max: 134/63 Pulse Min: 58 Max: 76 Resp Min: 16 Max: 18 General: well developed; well nourished no acute distress Abdomen: incision is clean, dry, intact, and without drainage Pelvic: Not performed Ext: Calves NT Results from last 7 days Lab Units 10/21/24 0500 10/20/24 0742 WBC 10*3/mm3 9.55 10.27 HEMOGLOBIN g/dL 8.4* 10.6* HEMATOCRIT % 25.1* 31.9* PLATELETS 10*3/mm3 208 260 Lab Results Component Value Date ABORH A Positive 11/19/2023 RH Positive 10/20/2024 HEPBSAG Negative 03/22/2024 Results from last 7 days Lab Units 10/20/24 0742 TREPONEMA PALLIDUM AB TOTAL Non-Reactive Assessment POD #2 S/P Repeat (LTCS) with bilateral total salpingectomy Doing well anemia OUD on MAT -- on home dose of buprenorphine GDM Plan Continue routine post-operative care Continue PO iron Will need 2h GTT at visit Plans to stay to POD4 due to needing to be here longer for MAT monitoring Ashley Cruz MD 10/22/2024 08:33 EDT * Ashley Cruz MD - 10/21/2024 8:07 AM EDT Willard Bynum : 1990 CSN: [id number] Hospital Day: 2 Post-operative Day #1 Subjective CC: hospital follow-up Her pain is well controlled. Vaginal bleeding is normal in amount. She is ambulating without difficulty. She is passing gas. She is voiding without difficulty. Her baby is doing well. Objective Min/max vitals past 24 hours: Temp Min: 97.4 ??F (36.3 ??C) Max: 98.8 ??F (37.1 ??C) BP Min: 104/56 Max: 140/77 Pulse Min: 59 Max: 101 Resp Min: 16 Max: 18 General: well developed; well nourished no acute distress Abdomen: incision is covered by bandage Pelvic: Not performed Ext: Calves NT Last 3 values Results from last 7 days Lab Units 10/21/24 0500 10/20/24 0742 WBC 10*3/mm3 9.55 10.27 HEMOGLOBIN g/dL 8.4* 10.6* HEMATOCRIT % 25.1* 31.9* PLATELETS 10*3/mm3 208 260 Lab Results Component Value Date ABORH A Positive 11/19/2023 RH Positive 10/20/2024 HEPBSAG Negative 03/22/2024 Results from last 7 days Lab Units 10/20/24 0742 TREPONEMA PALLIDUM AB TOTAL Non-Reactive Assessment POD #1 S/P Repeat (LTCS) with bilateral total salpingectomy Doing well anemia OUD on MAT -- on home dose of buprenorphine GDM Plan Continue routine post-operative care Ambulate Advance diet PO iron for anemia Will need 2h GTT at visit Ashley Crzu MD 10/21/2024 08:07 EDT * Ashley Cruz MD - 10/20/2024 12:09 PM EDT Delivered via section. See operative report. Ashley Cruz MD Obstetrics and Gynecology [facility] documented in this encounter H&P Notes * Ashley Cruz MD - 10/20/2024 8:08 AM EDT H&P reviewed. The patient was examined and there are no changes to the H&P. She confirms desire to proceed with sterilization today. Ashley Cruz MD Obstetrics and Gynecology [facility] Source Note - Ashley Cruz MD - 10/15/2024 10:50 AM EDT Sarah Bynum : 1990 CSN: [id number] History and Physical Subjective Sarah Bynum is [...] ABORH A Positive 11/19/2023 ABSCRN Negative 08/20/2024 [id number] Non Reactive 03/22/2024 Recent Labs Lab Results Component Value Date HGB 12.1 08/20/2024 HCT 33.9 (L) 08/20/2024 WBC 10.57 08/20/2024 PLT 203 08/20/2024 Assessment IUP with an Estimated Date of Delivery: 11/02/24 Planned section for previous C/S - declines Plan Repeat with bilateral salpingectomy ABx and DVT prophylaxis - Omnicef allergy Ashley Cruz MD 10/15/2024 * Daisy Iglesias MD - 10/20/2024 7:09 AM EDT Willard Obstetric History and Physical Chief Complaint Patient presents with Scheduled Subjective Patient is a 34 y.o. female currently at 38w1d, who presents for scheduled sectionand BTL in the setting of elevated blood sugars despite treatment with metformin. Her care and past obstetric history is complicated by GDMA2, hx of C/Sx1, Hx of preeclampsia and eclampsia, hx of substance use disorder (on subutex), positive Hep C Antibody and positive RPR screen with subsequent negative RPR. The following portions of the patients history were reviewed and updated as appropriate: current medications, allergies, and past medical history . Information: Maternal Labs Blood Type A positive Rh Status Positive Antibody Screen Negative Past OB History: OB History Para Term AB Living 3 1 1 0 1 1 SAB IAB Ectopic Molar Multiple Live Births 1 0 0 0 0 1 # Outcome Date GA Lbr Ghassan/2nd Weight Sex Type Anes PTL Lv 3 Current 2 SAB 10/2023 SAB 1 Term 06/10/14 37w0d 3345 g (7 lb 6 oz) M CS-Unspec Gen TRAE Complications: Preeclampsia Name: Chance Past Medical History: Past Medical History: Diagnosis Date Allergic Asthma Ovarian cyst Sciatica Past Surgical History Past Surgical History: Procedure Laterality Date SECTION WISDOM TOOTH EXTRACTION Family History: Family History Problem Relation Age of Onset Hypertension Father Memory loss Mother Graves' disease Mother Breast cancer Neg Hx Ovarian cancer Neg Hx Uterine cancer Neg Hx Colon cancer Neg Hx Osteoporosis Neg Hx Social History: reports that she has been smoking cigarettes. She has a 5 pack- year smoking history. She has never used smokeless tobacco. reports no history of alcohol use. reports that she does not currently use drugs. REVIEW OF SYSTEMS Reports movement is normal Denies leakage of amniotic fluid. Denies vaginal bleeding She reports No contractions All other systems reviewed and are negative Objective Vital Signs Range for the last 24 hours Temperature: Temp: [98.7 ??F (37.1 ??C)] 98.7 ??F (37.1 ??C) Temp Source: Temp src: Oral BP: BP: (113)/(72) 113/72 Pulse: Heart Rate: [87] 87 Respirations: Resp: [16] 16 SPO2: SpO2: [97 %] 97 % O2 Amount (l/min): O2 Devices Device (Oxygen Therapy): room air Weight: Weight: [72.6 kg (160 lb)] 72.6 kg (160 lb) Constitutional: Well developed, well nourished, no acute distress Respiratory: breathing comfortably on room air Gastrointestinal: Soft, gravid, nontender. Uterus: Soft, nontender. Fundus slightly large for gestational dates. Neurologic: Alert & oriented x 3 Psychiatric: Speech and behavior appropriate. Extremities: no cyanosis, clubbing or edema, no evidence of DVT. Labs: Lab Results Component Value Date WBC 10.27 10/20/2024 HGB 10.6 (L) 10/20/2024 HCT 31.9 (L) 10/20/2024 MCV 88.9 10/20/2024 PLT 260 10/20/2024 POCGLU 106 10/20/2024 CREATININE 0.59 08/20/2024 URICACID 3.4 08/20/2024 AST 14 08/20/2024 ALT 10 08/20/2024 LDH 454 (H) 08/20/2024 Assessment & Plan Gestational diabetes mellitus (GDM) Supervision of high risk in third trimester Diet controlled gestational diabetes mellitus (GDM) in third trimester Assessment: 1. Intrauterine at 38w1d weeks gestation with reactive status. 2. scheduled section with bilateral tubal ligation 3. Obstetrical history significant for GDMA2, hx of C/Sx1, Hx of preeclampsia and eclampsia, hx of substance use disorder (on subutex), positive Hep C Antibody and positive RPR screen with subsequentnegative RPR 4. GBS status: No results found for: GBSANTIGEN Plan: 1. with BTL - We discussed risks of blood loss, infection, damage to bowel, bladder, blood vessels, nerves, and ureters as well as risks of postoperative complications such as wound issues and VTE. We discussed the risks of life saving blood transfusion and hysterectomy with uncontrolled bleeding. She is accepting of these risks and wishes to proceed with RCS w/ BTL. Questions answered. Ancef. SCDs 2. Plan of care has been reviewed with patient and questions answered. 3. Risks, benefits of treatment plan have been discussed. 4. All questions have been answered. Daisy Iglesias MD 10/20/2024 08:19 EDT Cosigned by Ashley Cruz MD at 10/20/2024 12:21 PM EDT Associated attestation - Ashley Cruz MD - 10/20/2024 12:21 PM EDT I have reviewed this documentation and agree. Ashley Cruz MD Obstetrics and Gynecology [facility] documented in this encounter Nursing Notes * Yesica Arredondo RN - 10/21/2024 4:30 PM EDT 10/21/24 1630 Maternal Information Person Making Referral cost consultant (courtesy follow up; pt reports baby is bottle feeding now, she will only breastfeed if she has no other choice; encouraged to call /outpt clinic as needed) * Fallon Franks RN - 10/20/2024 4:45 PM EDT 10/20/24 1645 Maternal Information Date of Referral 10/20/24 Person Making Referral cost consultant (courtesy; newly . Per patient RN, mother is formula feeding currently; can check back tomorrow when mother is feeling better.) documented in this encounter OR Notes * Op Note - Ashley Cruz MD - 10/20/2024 9:40 AM EDT Willard Bynum : 1990 CSN: [id number] Section Operative Note Pre-Operative Dx: Intrauterine at 38w1d weeks Previous section - declines A2GDM and polyhydramnios Desires sterilization OUD in MAT Postoperative dx: Intrauterine at 38w1d weeks Previous section - declines Desires sterilization A2GDM and polyhydramnios OUD on MAT Procedure: Repeat (LTCS) - 1 layer closure with bilateral total salpingectomy Surgeon: Ashley Cruz MD Chef Broiler Or Fry: Daisy Iglesias, PGY-1 Anesthesia: Spinal QBL: 321 mls. UOP: 175 mls. Antibiotics: Ancef Name: Kelin Gender: female Weight: 3565 g (7 lb 13.8 oz) Apgars: 8 @ 1 minute / 9 @ 5 minutes Indications: Sarah Bynum is a @ 38w1d who presented for scheduled section and sterilization. Risks, benefits and alternatives were discussed with patient and family, including increased risk of bleeding, infection and risk of injury to intraabdominal structures. All questions were answered. Procedure Details: After the patient was adequately anesthetized, she was sterilely prepped and draped in the dorsal supine left lateral tilt position. A Pfannenstiel incision was created sharply with the knife and carried down to the fascia. The fascia was cut transversely with the knife and extended with scissors. The rectus muscles were in the midline and the peritoneum was entered bluntly. The lower uterine segment was scored transversely with the knife. Clear amniotic fluid was seen. The 's was in vertex presentation. The head was delivered atraumatically. The mouth and nose were bulb suctioned. Delayed cord clamping was performed and the infant was handed to the attending delivery team. The placenta was spontaneously extracted. The uterus was exteriorized and wiped free of debris and clot. The uterine incision was closed with 0-Monocryl in a continuous running fashion. A second 0-Monocryl was used to achieve hemostasis with a running suture. Attention was turned to the right fallopian tube. The fallopian tube was grasped with two Townsend clamps and the Enseal was used to separate the fallopian tube from the mesosalpinx. The fallopian tube was then sent to pathology and the mesosalpinx was hemostatic. The left fallopian tube was then removed in a similar fashion. The uterus was returned to the abdomen. The paracolic gutters were cleared of debris and clot. The fascia was closed with two sutures of 0 PDS, meeting in the midline. The subcutaneous tissue was copiously irrigated. Garrick's fascia was closed with 3-0 Vicryl and the skin was closed with 4-0 Monocryl subcuticularly. Steri-Strips without Mastisol were applied. All counts were correct. Complications: None Disposition: Mother to Mother Baby/ in stable condition currently. Baby to NBN in stable condition currently. Ashley Cruz MD 10/20/2024 12:10 EDT documented in this encounter Miscellaneous Notes * Case Management/Social Work - Jessica Prince MSW - 10/22/2024 10:33 AM EDT Continued Stay Note [place] Patient Name: Sarah Bynum Today's Date: 10/22/2024 Admit Date: 10/20/2024 Plan: TIN DIPPER available Discharge Plan Row Name 10/22/24 1033 Plan Plan TIN DIPPER available Plan Comments Visited pt and fob. Pt allowed FOB to be present for conversation. Discussed risk forPPD. Pt stated she was unhappy she is trapped and unable to go outside. TIN DIPPER offered to show her where patio is. Pt states patio is currently locked. FOB stated he thought a mini refrigerator would besupplied. TIN DIPPER offered to place items in nourishment room frig and he declined. Pt denies concerns for PPD. TIN DIPPER offered to ask RN about early d/c. Spoke with RN who states Dr Cruz declined d/c today and RN will explain to pt. TIN DIPPER provided printed info on PPD to pt. Final Discharge Disposition Code 01 - home or self-care Discharge Codes No documentation. KAYLEY Blum documented in this encounter Plan of Treatment Not on file documented as of this encounter Procedures Procedure Name Priority Date/Time Associated Diagnosis Comments CBC WITH AUTO DIFFERENTIAL Routine 10/21/2024 5:00 AM EDT CBC AND DIFFERENTIAL Routine 10/21/2024 5:00 AM EDT TISSUE PATHOLOGY EXAM Routine 10/20/2024 9:55 AM EDT Request for sterilization SECTION REPEAT WITH TUBAL 10/20/2024 9:19 AM EDT Diet controlled gestational diabetes mellitus (GDM) in third trimester Supervision of high risk in third trimester Special Needs [facility] 11/02/[id number]:[phone] POCT GLUCOSE FINGERSTICK Routine 10/20/2024 8:03 AM EDT TREPONEMA PALLIDUM AB W/REFLEX RPR STAT 10/20/2024 7:42 AM EDT CBC (NO DIFF) STAT 10/20/2024 7:42 AM EDT TYPE AND SCREEN Routine 10/20/2024 7:42 AM EDT documented in this encounter Results * (ABNORMAL) CBC Auto Differential (10/21/2024 5:00 AM EDT) Pathologist [facility] WBC 9.55 3.40 - 10.80 10*3/mm3 10/21/2024 5:49 AM EDT [facility] RBC 2.78(L) 3.77 - 5.28 10*6/mm3 10/21/2024 5:49 AM EDT [facility] Hemoglobin 8.4(L) 12.0 - 15.9 g/dL 10/21/2024 5:49 AM EDT [facility] Hematocrit 25.1(L) 34.0 - 46.6 % 10/21/2024 5:49 AM EDT [facility] MCV 90.3 79.0 - 97.0 fL 10/21/2024 5:49 AM EDT [facility] MCH 30.2 26.6 - 33.0 pg 10/21/2024 5:49 AM EDT [facility] MCHC 33.5 31.5 - 35.7 g/dL 10/21/2024 5:49 AM EDT [facility] RDW 12.2(L) 12.3 - 15.4 % 10/21/2024 5:49 AM [facility] RDW-SD 40.7 37.0 - 54.0 fl 10/21/2024 5:49 AM [facility] MPV 9.9 6.0 - 12.0 fL 10/21/2024 5:49 AM [facility] Platelets 208 140 - 450 10*3/mm3 10/21/2024 5:49 AM [facility] Neutrophil % 60.3 42.7 - 76.0 % 10/21/2024 5:49 AM [facility] Lymphocyte % 25.5 19.6 - 45.3 % 10/21/2024 5:49 AM [facility] Monocyte % 11.7 5.0 - 12.0 % 10/21/2024 5:49 AM [facility] Eosinophil % 1.6 0.3 - 6.2 % 10/21/2024 5:49 AM [facility] Basophil % 0.4 0.0 - 1.5 % 10/21/2024 5:49 AM [facility] Immature Grans % 0.5 0.0 - 0.5 % 10/21/2024 5:49 AM [facility] Neutrophils, Absolute 5.75 1.70 - 7.00 10*3/mm3 10/21/2024 5:49 AM [facility] Lymphocytes, Absolute 2.44 0.70 - 3.10 10*3/mm3 10/21/2024 5:49 AM [facility] Monocytes, Absolute 1.12(H) 0.10 - 0.90 10*3/mm3 10/21/2024 5:49 AM [facility] Eosinophils, Absolute 0.15 0.00 - 0.40 10*3/mm3 10/21/2024 5:49 AM [facility] Basophils, Absolute 0.04 0.00 - 0.20 10*3/mm3 10/21/2024 5:49 AM [facility] Immature Grans, Absolute 0.05 0.00 - 0.05 10*3/mm3 10/21/2024 5:49 AM EDT [facility] nRBC 0.0 0.0 - 0.2 /100 WBC 10/21/2024 5:49 AM EDT [facility] Blood Venipuncture / Unknown 10/21/2024 5:00 AM EDT 10/21/2024 5:30 AM EDT Ashley Cruz MD LAB BLOOD ORDERABLES Final Resul t [facility]
[address] [place] [address], * Tissue Pathology Exam (10/20/2024 9:55 AM EDT) Case Report Surgical Pathology Report Case: [id number] Authorizing Provider: Ashley Cruz MD Collected: 10/20/2024 09:55 AM Ordering Location: [facility] Received: 10/20/2024 01:57 PM LABOR DELIVERY Pathologist: Rafael Cutler MD Specimen: Fallopian Tubes, Bilateral 10/21/2024 1:14 PM EDT [facility] Clinical Information Request for sterilization 10/21/2024 1:14 PM EDT [facility] Final Diagnosis BILATERAL FALLOPIAN TUBES, SALPINGECTOMY: Two fallopian tubes with no significant histopathologic change each seen in full cross-section. 10/21/2024 1:14 PM EDT [facility] at 1314 EDT Gross Description 1. Fallopian Tubes, Bilateral. Received in formalin labeled fallopian tubes, bilateral are 2 undesignated, fimbriated fallopian tubes, measuring 7.9 x 0.9 cm and 9.3 x 0.9 cm. The external surfaces are red-purple, smooth, and glistening. No distinct lesions are grossly identified within either fallopian tube upon sectioning, and paper sales representative sections are submitted as follows: 1A: [place] fallopian tube 1B: Longer fallopian tube AKG 10/21/2024 1:14 PM EDT [facility] Microscopic Description The slides are reviewed and demonstrate histopathologic features supporting the above rendered diagnosis. 10/21/2024 1:14 PM EDT [facility] Tissue Both fallopian tubes / Unknown 10/20/2024 9:55 AM EDT 10/20/2024 1:57 PM EDT us Ashley Cruz MD PATHOLOGY/CYTOLOGY ORDERABLES Fi nal Result Performing Organization Address [facility] Co de Phone Number [facility]
[address] [place] [address], [place] [phone] * POC Glucose Once (10/20/2024 8:03 AM EDT) Glucose 106 70 - 130 mg/dL 10/20/2024 8:03 AM EDT [facility] Blood 10/20/2024 8:03 AM EDT 10/20/2024 8:03 AM EDT us Ashley Cruz MD POINT OF CARE TEST ORDERABLES Fi nal Result Performing Organization Address [facility] de Phone Number [facility]
[address] [place] [address], [place] [phone] * Treponema pallidum AB w/Reflex RPR (10/20/2024 7:42 AM EDT) Treponemal AB Total Non-Reacti ve Non-React uday 10/20/2024 12:41 PM EDT [facility] Blood Venipuncture / Unknown 10/20/2024 7:42 AM EDT 10/20/2024 7:48 AM EDT Narrative [facility] - 10/20/2024 12:41 PM EDT Reactive results will reflex RPR testing. us Ashley Cruz MD LAB BLOOD ORDERABLES Final Resul t [facility]
[address] [place] [address], * (ABNORMAL) CBC (No Diff) (10/20/2024 7:42 AM EDT) WBC 10.27 3.40 - 10.80 10*3/mm3 10/20/2024 8:08 AM EDT [facility] RBC 3.59(L) 3.77 - 5.28 10*6/mm3 10/20/2024 8:08 AM EDT [facility] Hemoglobin 10.6(L) 12.0 - 15.9 g/dL 10/20/2024 8:08 AM EDT [facility] Hematocrit 31.9(L) 34.0 - 46.6 % 10/20/2024 8:08 AM EDT [facility] MCV 88.9 79.0 - 97.0 fL 10/20/2024 8:08 AM EDT [facility] MCH 29.5 26.6 - 33.0 pg 10/20/2024 8:08 AM EDT [facility] MCHC 33.2 31.5 - 35.7 g/dL 10/20/2024 8:08 AM EDT [facility] RDW 12.3 12.3 - 15.4 % 10/20/2024 8:08 AM EDT [facility] RDW-SD 39.8 37.0 - 54.0 fl 10/20/2024 8:08 AM EDT [facility] MPV 10.0 6.0 - 12.0 fL 10/20/2024 8:08 AM EDT [facility] Platelets 260 140 - 450 10*3/mm3 10/20/2024 8:08 AM EDT [facility] Blood Venipuncture / Unknown 10/20/2024 7:42 AM EDT 10/20/2024 7:48 AM EDT us Ashley Cruz MD LAB BLOOD ORDERABLES Final Resul t Performing Organization Address [facility] Co de Phone Number [facility]
[address] [place] [address], * Type & Screen (10/20/2024 7:42 AM EDT) ABO Type A 10/20/2024 8:27 AM EDT [facility] RH type Positive 10/20/2024 8:27 AM EDT [facility] Antibody Screen Negative 10/20/2024 8:27 AM EDT [facility] T&S Expiration Date 10/23/2024 11:59:59 PM 10/20/2024 8:27 AM EDT [facility] Blood Venipuncture / Unknown 10/20/2024 7:42 AM EDT 10/20/2024 7:54 AM EDT Ashley Cruz MD BLOOD BANK TEST ORDERABLES Edite d Result - Final Performing Organization Address [facility] Co de Phone Number [facility]
[address] [place] [address], documented in this encounter Visit Diagnoses Diagnosis Gestational diabetes mellitus (GDM)- Primary Previous section Other postprocedural status Request for sterilization care following delivery Diet controlled gestational diabetes mellitus (GDM) in third trimester Supervision of high risk in third trimester care following delivery documented in this encounter Admitting Diagnoses Diagnosis Diet controlled gestational diabetes mellitus (GDM) in third trimester Supervision of high risk in third trimester Gestational diabetes mellitus (GDM) care following delivery documented in this encounter Administered Medications Inactive Administered Medications - up to 3 most recent administrations Medication Order MAR Action Action Date Dose Rate Site acetaminophen (TYLENOL) tablet 1,000 mg 1,000 mg, Oral, Once, On Fri10/20/24 at 0815, For 1 dose, If given for fever, use fever parameter: fever greater than 100.4 F Based on patient request - if ordered for moderate or severe pain, provider allows for administration of a medication prescribed for a lower pain scale. Do not exceed 4 grams of acetaminophen in a 24 hr period. Max dose of 2gm for AST/ALT greater than 120 units/L. If given for pain, use the following pain scale: Mild Pain = Pain Score of 1-3, CPOT 1-2 Moderate Pain = Pain Score of 4-6, CPOT 3-4 Severe Pain = Pain Score of 7-10, CPOT 5-8Indications:Previous section Given 10/20/2024 8:23 AM EDT 1,000 mg acetaminophen (TYLENOL) tablet 1,000 mg 1,000 mg, Oral, Every 6 Hours, First dose on Fri10/20/24 at 1400, For 24 hours, Pharmacy to schedule 6 hours from pre-op dose. Based on patient request - if ordered for moderate or severe pain, provider allows for administration of a medication prescribed for a lower pain scale. Do not exceed 4 grams of acetaminophen in a 24 hr period. Max dose of 2gm for AST/ALT greater than 120 units/L. If given for pain, use the following pain scale: Mild Pain = Pain Score of 1-3, CPOT 1-2 Moderate Pain = Pain Score of 4-6, CPOT 3-4 Severe Pain = Pain Score of 7-10, CPOT 5-8 Given 10/21/2024 8:12 AM EDT 1,000 mg Given 10/21/2024 1:37 AM EDT 1,000 mg Given 10/20/2024 8:53 PM EDT 1,000 mg acetaminophen (TYLENOL) tablet 650 mg 650 mg, Oral, Every 6 Hours, First dose on Fri10/21/24 at 1400, If given for fever, use fever parameter: fever greater than 100.4 F Based on patient request - if ordered for moderate or severe pain, provider allows for administration of a medication prescribed for a lower pain scale. Do not exceed 4 grams of acetaminophen in a 24 hr period. Max dose of 2gm for AST/ALT greater than 120 units/L. If given for pain, use the following pain scale: Mild Pain = Pain Score of 1-3, CPOT 1-2 Moderate Pain = Pain Score of 4-6, CPOT 3-4 Severe Pain = Pain Score of 7-10, CPOT 5-8 Given 10/23/2024 1:09 PM EDT 6 50 mg Given 10/23/2024 8:39 AM EDT 650 mg Given 10/23/2024 2:04 AM EDT 650 mg aluminum-magnesium hydroxide-simethicone (MAALOX MAX) 400-400-40 MG/5ML suspension 15 mL 15 mL, Oral, Every 4 Hours PRN, Indigestion, Starting on Fri10/20/24 at 1318, Maximum 60 mL in 24 hours. buprenorphine (SUBUTEX) SL tablet 6 mg 6 mg, Sublingual, 2 Times Daily, First dose (after last modification) on Claudia 10/21/24 at 0900, Sublingual. Do not chew, crush, or swallow. Place under tongue and allow to dissolve. May take a small sip of water prior to placing under the tongue to aid dissolution. (MARCIA) If given for pain, use the following pain scale: Mild Pain = Pain Score of 1-3, CPOT 1-2 Moderate Pain = Pain Score of 4-6, CPOT 3-4 Severe Pain = Pain Score of 7-10, CPOT 5-8, Is this being prescribed for induction, induction - dose adjustement or maintenance? Maintenance, Indications: Opioid Use Disorder (Continuation of Therapy)Indications:Opioid Use Disorder (Continuation of Therapy) Given 10/23/2024 8:40 AM EDT 6 mg Given 10/22/2024 8:17 PM EDT 6 mg Given 10/22/2024 8:52 AM EDT 6 mg buprenorphine (SUBUTEX) SL tablet 6 mg 6 mg, Sublingual, Once, On Fri10/20/24 at 1500, For 1 dose, Sublingual. Do not chew, crush, or swallow. Place under tongue and allow to dissolve. May take a small sip of water prior to placing under the tongue to aid dissolution. (MARCIA) If given for pain, use the following pain scale: Mild Pain = Pain Score of 1-3, CPOT 1-2 Moderate Pain = Pain Score of 4-6, CPOT 3-4 Severe Pain = Pain Score of 7-10, CPOT 5-8, Is this being prescribed for induction, induction - dose adjustement or maintenance? Maintenance, Indications: Opioid Use Disorder (Continuation of Therapy)Indications:Opioid Use Disorder (Continuation of Therapy) Given 10/20/2024 2:19 PM EDT 6 mg calcium carbonate (TUMS) chewable tablet 500 mg (200 mg elemental) 1 tablet, Oral, Every 4 Hours PRN, Indigestion, Heartburn, Starting on Fri10/20/24 at 1318, One tablet contains 200 mg elemental calcium. Take with food. clindamycin (CLEOCIN) 900 mg in dextrose 5% 50 mL IVPB (premix) 900 mg, Intravenous, at 100 mL/hr, Administer over 30 Minutes, Once, On Fri10/20/24 at 0815, For 1 dose, Administer within 60 minutes of incision. Do Not refrigerate., Indications: Surgical ProphylaxisIndications:Surgical Prophylaxis New Bag 10/20/2024 9:16 AM EDT 900 mg 100 mL/hr diphenhydrAMINE (BENADRYL) capsule 25 mg 25 mg, Oral, Every 4 Hours PRN, Itching, Starting on Fri10/20/24 at 1318, Caution: Look alike/sound alike drug alert. This med may be ordered in other forms and routes. Before giving verify the last time the drug was given by any route/form. diphenhydrAMINE (BENADRYL) injection 25 mg 25 mg, Intravenous, Every 4 Hours PRN, Itching, Starting on Fri10/20/24 at 1318, 25 mg may be given IV push over less than 1 minute. Caution: Look alike/sound alike drug alert. This med may be ordered in other forms and routes. Before giving verify the last time the drug was given by any route/form. diphenhydrAMINE (BENADRYL) injection 25 mg 25 mg, Intramuscular, Every 4 Hours PRN, Itching, Starting on Fri10/20/24 at 1318, 25 mg may be given IV push over less than 1 minute. Caution: Look alike/sound alike drug alert. This med may be ordered in other forms and routes. Before giving verify the last time the drug was given by any route/form. docusate sodium (COLACE) capsule 100 mg 100 mg, Oral, 2 Times Daily PRN, Constipation, Starting on Fri10/20/24 at 1318, Swallow whole. Do not open, crush, or chew capsule. Given 10/23/2024 8:40 AM EDT 100 mg Given 10/21/2024 8:00 PM EDT 100 mg Given 10/21/2024 8:12 AM EDT 100 mg ferrous sulfate tablet 325 mg 325 mg, Oral, Daily With Breakfast, First dose on Claudia 10/21/24 at 0900, Swallow whole. Do not crush, split, or chew. Take with food if GI upset occurs. gentamicin (GARAMYCIN) 280 mg in sodium chloride 0.9 % IVPB 280 mg (rounded from 284 mg = 5 mg/kg 56.8 kg Adjusted weight), Intravenous, Administer over 30 Minutes, Once, On Fri10/20/24 at 0815, For 1 dose, Administer within 60 minutes of incision., Indications: Surgical ProphylaxisIndications:Surgical Prophylaxis New Bag 10/20/2024 10:01 AM EDT 280 mg guaifenesin-dextromethorphan 600-30 mg (MUCINEX DM) 1 tablet 1 tablet, Oral, Every 12 Hours Scheduled, First dose on Fri10/20/24 at 1800, Do not crush or chew the capsules or tablets. The drug may not work as designed if the capsule or tablet is crushed or chewed. Swallow whole. Given 10/21/2024 8:12 AM EDT 1 tablet Given 10/20/2024 5:32 PM EDT 1 tablet ibuprofen (ADVIL,MOTRIN) tablet 600 mg 600 mg, Oral, Every 6 Hours, First dose on Claudia 10/21/24 at 1700, Based on patient request - if ordered for moderate or severe pain, provider allows for administration of a medication prescribed for a lower pain scale. Mucous membrane irritant. Do not crush or chew tablet or capsule unless administered through a feeding tube. If given for pain, use the following pain scale: Mild Pain = Pain Score of 1-3, CPOT 1-2 Moderate Pain = Pain Score of 4-6, CPOT 3-4 Severe Pain = Pain Score of 7-10, CPOT 5-8 Given 10/23/2024 11:39 AM EDT 600 mg Given 10/23/2024 5:06 AM EDT 600 mg Given 10/22/2024 11:22 PM EDT 600 mg ketorolac (TORADOL) injection 15 mg 15 mg, Intravenous, Every 6 Hours, First dose on Fri10/20/24 at 1700, For 24 hours, Pharmacy to stagger first dose 3 hours from the first post- Tylenol dose. ([facility]) If given for pain, use the following pain scale: Mild Pain = Pain Score of 1-3, CPOT 1-2 Moderate Pain = Pain Score of 4-6, CPOT 3-4 Severe Pain = Pain Score of 7-10, CPOT 5-8 Given 10/21/2024 10:06 AM EDT 15 mg Given 10/21/2024 5:04 AM EDT 15 mg Given 10/20/2024 10:57 PM EDT 15 mg ketorolac (TORADOL) injection 30 mg 30 mg, Intravenous, Once, On Fri10/20/24 at 1115, For 1 dose, Once in PACU ([facility]), , If given for pain, use the following pain scale:, Mild Pain = Pain Score of 1-3, CPOT 1-2, Moderate Pain = Pain Score of 4-6, CPOT 3-4, Severe Pain = Pain Score of 7-10, CPOT 5-8Indications:Previous section Given 10/20/2024 10:49 AM EDT 30 mg lactated ringers bolus 1,000 mL 1,000 mL, Intravenous, at 1,000 mL/hr, Administer over 1 Hours, Once, On Fri10/20/24 at 0815, For 1 dose, For patients receiving spinal anesthesiaIndications:Previous section New Bag 10/20/2024 8:50 AM EDT 1,000 mL 1000 mL/hr lactated ringers infusion 125 mL/hr, Intravenous, Continuous, Starting on Fri10/20/24 at 0815, For 4 hoursIndications:Previous section New Bag 10/20/2024 12:37 PM EDT 125 mL/hr 125 mL/hr Restarted 10/20/2024 10:12 AM EDT New Bag 10/20/2024 9:25 AM EDT 125 mL/hr 125 mL/hr morphine injection 2 mg 2 mg, Intravenous, Every 4 Hours PRN, Severe Pain, Breakthrough pain, Starting on Fri10/20/24 at 1215, For 5 days, Based on patient request - if ordered for moderate or severe pain, provider allows for administration of a medication prescribed for a lower pain scale. If given for pain, use the following pain scale: Mild Pain = Pain Score of 1-3, CPOT 1-2 Moderate Pain = Pain Score of 4-6, CPOT 3-4 Severe Pain = Pain Score of 7-10, CPOT 5-8 Given 10/20/2024 12:25 PM EDT 2 mg nicotine (NICODERM CQ) 14 MG/24HR patch 1 patch 1 patch, Transdermal, Administer over 24 Hours, Every 24 Hours Scheduled, First dose on Fri10/22/24 at 0900, Apply to clean, dry, nonhairy area of skin (typically upper arm or shoulder) Dispose of nicotine replacement therapies and their wrappers in non-hazardous pharmaceutical waste or in regular trash. oxyCODONE (ROXICODONE) immediate release tablet 10 mg 10 mg, Oral, Every 4 Hours PRN, Severe Pain, Starting on Fri10/20/24 at 1111, For 5 days, Based on patient request - if ordered for moderate or severe pain, provider allows for administration of a medication prescribed for a lower pain scale. If given for pain, use the following pain scale: Mild Pain = Pain Score of 1-3, CPOT 1-2 Moderate Pain = Pain Score of 4-6, CPOT 3-4 Severe Pain = Pain Score of 7-10, CPOT 5-8 Given 10/23/2024 2:27 PM EDT 10 mg Given 10/23/2024 8:39 AM EDT 10 mg Given 10/23/2024 2:05 AM EDT 10 mg oxyCODONE (ROXICODONE) immediate release tablet 5 mg 5 mg, Oral, Every 4 Hours PRN, Moderate Pain, Starting on Fri10/20/24 at 1111, For 5 days, Based on patient request - if ordered for moderate or severe pain, provider allows for administration of a medication prescribed for a lower pain scale. (MARCIA) If given for pain, use the following pain scale: Mild Pain = Pain Score of 1-3, CPOT 1-2 Moderate Pain = Pain Score of 4-6, CPOT 3-4 Severe Pain = Pain Score of 7-10, CPOT 5-8 vitamin tablet 1 tablet 1 tablet, Oral, Daily, First dose on Fri10/20/24 at 1600 Given 10/22/2024 8:52 AM EDT 1 tablet Given 10/21/2024 8:12 AM EDT 1 tablet simethicone (MYLICON) chewable tablet 80 mg 80 mg, Oral, 4 Times Daily PRN, Flatulence, Starting on Fri10/20/24 at 1318 Given 10/23/2024 8:39 AM EDT 80 mg Given 10/22/2024 11:23 PM EDT 80 mg Given 10/21/2024 8:12 AM EDT 80 mg Sod Citrate-Citric Acid (BICITRA) oral solution 30 mL 30 mL, Oral, Once, On Fri10/20/24 at 0815, For 1 dose, For all section patients no more than 20 minutes prior to transport to the OR.Indications:Previous section Given 10/20/2024 9:16 AM EDT 30 mL documented in this encounter Active and Recently Administered Medications Times are shown in EDT. Scheduled Medication Order 10/21/2024 10/22/2024 10/23/2024 acetaminophen (TYLENOL) tablet 1,000 mg (COMPLETED)(Linked Group 1) 1,000 mg, Oral, Every 6 Hours, First dose on Fri10/20/24 at 1400, For 24 hours, Pharmacy to schedule 6 hours from pre-op dose. Based on patient request - if ordered for moderate or severe pain, provider allows for administration of a medication prescribed for a lower pain scale. Do not exceed 4 grams of acetaminophen in a 24 hr period. Max dose of 2gm for AST/ALT greater than 120 units/L. If given for pain, use the following pain scale: Mild Pain = Pain Score of 1-3, CPOT 1-2 Moderate Pain = Pain Score of 4-6, CPOT 3-4 Severe Pain = Pain Score of 7-10, CPOT 5-8 0137 (Given - Provider: Carmella Thomas RN)0812 (Given - Provider: Pili Molina RN) acetaminophen (TYLENOL) tablet 650 mg(Linked Group 1) 650 mg, Oral, Every 6 Hours, First dose on Fri10/21/24 at 1400, If given for fever, use fever parameter: fever greater than 100.4 F Based on patient request - if ordered for moderate or severe pain, provider allows for administration of a medication prescribed for a lower pain scale. Do not exceed 4 grams of acetaminophen in a 24 hr period. Max dose of 2gm for AST/ALT greater than 120 units/L. If given for pain, use the following pain scale: Mild Pain = Pain Score of 1-3, CPOT 1-2 Moderate Pain = Pain Score of 4-6, CPOT 3-4 Severe Pain = Pain Score of 7-10, CPOT 5-8 1301 (Given - Provider: Pili Molina, SILVIA)1999 (Given - Provider: Lexi Weber RN) 024 (Given - Provider: Lexi Weber RN)0852 (Given - Provider: Pili Molina RN)1312 (Given - Provider: Pili Molina RN)2016 (Given - Provider: Lexi Weber RN) 020 (Given - Provider: Lexi Weber RN)0839 (Given - Provider: Esperanza Umanzor, SILVIA)1309 (Given - Provider: Esperazna Umanzor, SILVIA) budesonide-formoterol (SYMBICORT) 160-4.5 MCG/ACT inhaler 2 puff 2 puff, Inhalation, 2 Times Daily, First dose on Fri10/20/24 at 2100, (SP) Shake well. Rinse mouth after use, do not swallow water. Send aerosols to pharmacy in ziplock bag for proper disposal. 0850 (Not Given - Provider: Nadine Vernon, EXECUTIVE ACCOUNT MANAGER - Reason: Patient/family refused)2242 (Not Given - Provider: Jassi Soto, EXECUTIVE ACCOUNT MANAGER - Reason: Other) 0954 (Not Given - Provider: Anju Acosta, EXECUTIVE ACCOUNT MANAGER - Reason: Patient/family refused)2241 (Not Given - Provider: Jassi Soto, EXECUTIVE ACCOUNT MANAGER - Reason: Other) 0917 (Not Given - Provider: Esperanza Umanzor RN - Reason: Patient/family refused) buprenorphine (SUBUTEX) SL tablet 6 mg 6 mg, Sublingual, 2 Times Daily, First dose (after last modification) on Fri10/21/24 at 0900, Sublingual. Do not chew, crush, or swallow. Place under tongue and allow to dissolve. May take a small sip of water prior to placing under the tongue to aid dissolution. (MARCIA) If given for pain, use the following pain scale: Mild Pain = Pain Score of 1-3, CPOT 1-2 Moderate Pain = Pain Score of 4-6, CPOT 3-4 Severe Pain = Pain Score of 7-10, CPOT 5-8, Is this being prescribed for induction, induction - dose adjustement or maintenance? Maintenance, Indications: Opioid Use Disorder (Continuation of Therapy) 0812 (Given - Provider: Pili Molina RN)2008 (Given - Provider: Lexi Weber RN) 0852 (Given - Provider: Pili Molina RN)2016 (Given - Provider: Lxei Weber RN) 0840 (Given - Provider: Esperanza Umanzor RN) ferrous sulfate tablet 325 mg 325 mg, Oral, Daily With Breakfast, First dose on Fri10/21/24 at 0900, Swallow whole. Do not crush, split, or chew. Take with food if GI upset occurs. 0910 (Not Given - Provider: Pili Molina RN - Reason: Patient/family refused) 0855 (Not Given - Provider: Pili Molina RN - Reason: Patient/family refused) 0917 (Not Given - Provider: Esperanza Umanzor RN - Reason: Patient/family refused) guaifenesin-dextromethorp uribe 600-30 mg (MUCINEX DM) 1 tablet 1 tablet, Oral, Every 12 Hours Scheduled, First dose on Fri10/20/24 at 1800, Do not crush or chew the capsules or tablets. The drug may not work as designed if the capsule or tablet is crushed or chewed. Swallow whole. 0812 (Given - Provider: Pili Molina RN)2100 (Not Given - Provider: Lexi Weber RN - Reason: Patient/family refused) 0855 (Not Given - Provider: Pili Molina RN - Reason: Patient/family refused)2100 (Not Given - Provider: Leix Weber RN - Reason: Patient/family refused) 0918 (Not Given - Provider: Esperanza Umanzor RN - Reason: Patient/family refused) ibuprofen (ADVIL,MOTRIN) tablet 600 mg(Linked Group 2) 600 mg, Oral, Every 6 Hours, First dose on Fri10/21/24 at 1700, Based on patient request - if ordered for moderate or severe pain, provider allows for administration of a medication prescribed for a lower pain scale. Mucous membrane irritant. Do not crush or chew tablet or capsule unless administered through a feeding tube. If given for pain, use the following pain scale: Mild Pain = Pain Score of 1-3, CPOT 1-2 Moderate Pain = Pain Score of 4-6, CPOT 3-4 Severe Pain = Pain Score of 7-10, CPOT 5-8 1710 (Given - Provider: Pili Molina RN)2303 (Given - Provider: Lexi Weber RN) 0526 (Given - Provider: Lexi Weber RN)1057 (Given - Provider: Pili Molina RN)1708 (Given - Provider: Pili Molina RN)2322 (Given - Provider: Lexi Weber RN) 0506 (Given - Provider: Lexi Weber RN)1139 (Given - Provider: Esperanza Umanzor RN) ketorolac (TORADOL) injection 15 mg (COMPLETED)(Linked Group 2) 15 mg, Intravenous, Every 6 Hours, First dose on Fri10/20/24 at 1700, For 24 hours, Pharmacy to stagger first dose 3 hours from the first post- Tylenol dose. ([facility]) If given for pain, use the following pain scale: Mild Pain = Pain Score of 1-3, CPOT 1-2 Moderate Pain = Pain Score of 4-6, CPOT 3-4 Severe Pain = Pain Score of 7-10, CPOT 5-8 0504 (Given - Provider: Carmella Thomas RN)1006 (Given - Provider: iPli Molina RN) nicotine (NICODERM CQ) 14 MG/24HR patch 1 patch 1 patch, Transdermal, Administer over 24 Hours, Every 24 Hours Scheduled, First dose on Fri10/22/24 at 0900, Apply to clean, dry, nonhairy area of skin (typically upper arm or shoulder) Dispose of nicotine replacement therapies and their wrappers in non-hazardous pharmaceutical waste or in regular trash. 0856 (Not Given - Provider: Pili Molina RN - Reason: Patient/family refused) 0900 (Due) vitamin tablet 1 tablet 1 tablet, Oral, Daily, First dose on Fri10/20/24 at 1600 0812 (Given - Provider: Pili Molina RN) 0852 (Given - Provider: Pili Molina RN) 0918 (Not Given - Provider: Esperanza Umanzor RN - Reason: Patient/family refused) PRN Medication Order 10/21/2024 10/22/2024 10/23/2024 aluminum-magnesium hydroxide-simethicone (MAALOX MAX) 400-400-40 MG/5ML suspension 15 mL(Linked Group 3) 15 mL, Oral, Every 4 Hours PRN, Indigestion, Starting on Fri10/20/24 at 1318, Maximum 60 mL in 24 hours. calcium carbonate (TUMS) chewable tablet 500 mg (200 mg elemental)(Linked Group 3) 1 tablet, Oral, Every 4 Hours PRN, Indigestion, Heartburn, Starting on Fri10/20/24 at 1318, One tablet contains 200 mg elemental calcium. Take with food. carboprost (HEMABATE) injection 250 mcg 250 mcg, Intramuscular, As Needed, hemorrhage, Starting on Fri10/20/24 at 1318, DO NOT administer IV Refrigerate. Use filter needle to withdraw dose. diphenhydrAMINE (BENADRYL) capsule 25 mg(Linked Group 4) 25 mg, Oral, Every 4 Hours PRN, Itching, Starting on Fri10/20/24 at 1318, Caution: Look alike/sound alike drug alert. This med may be ordered in other forms and routes. Before giving verify the last time the drug was given by any route/form. diphenhydrAMINE (BENADRYL) injection 25 mg(Linked Group 4) 25 mg, Intravenous, Every 4 Hours PRN, Itching, Starting on Fri10/20/24 at 1318, 25 mg may be given IV push over less than 1 minute. Caution: Look alike/sound alike drug alert. This med may be ordered in other forms and routes. Before giving verify the last time the drug was given by any route/form. diphenhydrAMINE (BENADRYL) injection 25 mg(Linked Group 4) 25 mg, Intramuscular, Every 4 Hours PRN, Itching, Starting on Fri10/20/24 at 1318, 25 mg may be given IV push over less than 1 minute. Caution: Look alike/sound alike drug alert. This med may be ordered in other forms and routes. Before giving verify the last time the drug was given by any route/form. docusate sodium (COLACE) capsule 100 mg 100 mg, Oral, 2 Times Daily PRN, Constipation, Starting on Fri10/20/24 at 1318, Swallow whole. Do not open, crush, or chew capsule. 0812 (Given - Provider: Pili Molina, SILVIA)1999 (Given - Provider: Lexi Weber RN) 0840 (Given - Provider: Esperanza Umanzor RN) Hydrocortisone (Perianal) (ANUSOL-HC) 2.5 % rectal cream 1 Application 1 Application, Rectal, As Needed, Hemorrhoids, Starting on Fri10/20/24 at 1318, May leave at bedside lanolin topical 1 Application 1 Application, Topical, Every 1 Hour PRN, Dry Skin, nipple pain, Starting on Fri10/20/24 at 1318, May keep at bedside. methylergonovine (METHERGINE) injection 200 mcg 200 mcg, Intramuscular, As Needed, hemorrhage, Starting on Fri10/20/24 at 1318, Group 2 ([place]) Hazardous Drug - Reproductive Risk Only - See Handling Guide miSOPROStol (CYTOTEC) tablet 600 mcg 600 mcg, Oral, As Needed, hemorrhage, Starting on Fri10/20/24 at 1318, Group 2 ([place]) Hazardous Drug - Reproductive Risk Only - See Handling Guide morphine injection 2 mg 2 mg, Intravenous, Every 4 Hours PRN, Severe Pain, Breakthrough pain, Starting on Fri10/20/24 at 1215, For 5 days, Based on patient request - if ordered for moderate or severe pain, provider allows for administration of a medication prescribed for a lower pain scale. If given for pain, use the following pain scale: Mild Pain = Pain Score of 1-3, CPOT 1-2 Moderate Pain = Pain Score of 4-6, CPOT 3-4 Severe Pain = Pain Score of 7-10, CPOT 5-8 oxyCODONE (ROXICODONE) immediate release tablet 10 mg(Linked Group 5) 10 mg, Oral, Every 4 Hours PRN, Severe Pain, Starting on Fri10/20/24 at 1111, For 5 days, Based on patient request - if ordered for moderate or severe pain, provider allows for administration of a medication prescribed for a lower pain scale. If given for pain, use the following pain scale: Mild Pain = Pain Score of 1-3, CPOT 1-2 Moderate Pain = Pain Score of 4-6, CPOT 3-4 Severe Pain = Pain Score of 7-10, CPOT 5-8 0504 (Given - Provider: Carmella Thomas RN)0911 (Given - Provider: Pili Molina RN)1301 (Given - Provider: Pili Molina RN)1710 (Given - Provider: Pili Molina RN)2102 (Given - Provider: Lexi Weber RN) 0112 (Given - Provider: Lexi Weber RN)0526 (Given - Provider: Lexi Weber RN)0940 (Given - Provider: Pili Molina RN)1310 (Given - Provider: Pili Molina RN)1708 (Given - Provider: Pili Molina RN)2105 (Given - Provider: Lexi Weber RN) 0205 (Given - Provider: Lexi Weber RN)0839 (Given - Provider: Esperanza Umanzor RN)1427 (Given - Provider: Esperanza Umanzor RN) oxyCODONE (ROXICODONE) immediate release tablet 5 mg(Linked Group 5) 5 mg, Oral, Every 4 Hours PRN, Moderate Pain, Starting on Fri10/20/24 at 1111, For 5 days, Based on patient request - if ordered for moderate or severe pain, provider allows for administration of a medication prescribed for a lower pain scale. (MARCIA) If given for pain, use the following pain scale: Mild Pain = Pain Score of 1-3, CPOT 1-2 Moderate Pain = Pain Score of 4-6, CPOT 3-4 Severe Pain = Pain Score of 7-10, CPOT 5-8 0504 (Not Given: See Alt - Provider: Carmella Thomas RN)0911 (Not Given: See Alt - Provider: Pili Molina RN)1301 (Not Given: See Alt - Provider: Pili Molina RN)1710 (Not Given: See Alt - Provider: Pili Molina RN)2102 (Not Given: See Alt - Provider: Lexi Weber RN) 0112 (Not Given: See Alt - Provider: Lexi Weber RN)0526 (Not Given: See Alt - Provider: Lexi Weber RN)0940 (Not Given: See Alt - Provider: Pili Molina RN)1310 (Not Given: See Alt - Provider: Pili Molina RN)1708 (Not Given: See Alt - Provider: Pili Molina RN)2105 (Not Given: See Alt - Provider: Lexi Weber RN) 0205 (Not Given: See Alt - Provider: eLxi Weber RN)0839 (Not Given: See Alt - Provider: Esperanza Umanzor, SILVIA)1427 (Not Given: See Alt - Provider: Esperanza Umanzor RN) oxytocin (PITOCIN) 30 units in 0.9% sodium chloride 500 mL (premix) 125 mL/hr, Intravenous, Once As Needed, PRN Bleeding for 1 Bag, Starting on Fri10/20/24 at 1318, For 1 dose, Consider 2nd agent prophylactically. Only order if patient is at high risk of bleeding and will need an additional bag (2 total). Group 2 ([place]) Hazardous Drug - Reproductive Risk Only - See Handling Guide simethicone (MYLICON) chewable tablet 80 mg 80 mg, Oral, 4 Times Daily PRN, Flatulence, Starting on Fri10/20/24 at 1318 0812 (Given - Provider: Pili Molina RN) 2323 (Given - Provider: Lexi Weber RN) 0839 (Given - Provider: Esperanza Umanzor RN) Linked Groups Order Group 1: acetaminophen (TYLENOL) tablet 1,000 mg (COMPLETED)Jump to med 1,000 mg, Oral, Every 6 Hours, First dose on Fri10/20/24 at 1400, For 24 hours, Pharmacy to schedule 6 hours from pre-op dose. Based on patient request - if ordered for moderate or severe pain, provider allows for administration of a medication prescribed for a lower pain scale. Do not exceed 4 grams of acetaminophen in a 24 hr period. Max dose of 2gm for AST/ALT greater than 120 units/L. If given for pain, use the following pain scale: Mild Pain = Pain Score of 1-3, CPOT 1-2 Moderate Pain = Pain Score of 4-6, CPOT 3-4 Severe Pain = Pain Score of 7-10, CPOT 5-8 Followed by acetaminophen (TYLENOL) tablet 650 mgJump to med 650 mg, Oral, Every 6 Hours, First dose on Fri10/21/24 at 1400, If given for fever, use fever parameter: fever greater than 100.4 F Based on patient request - if ordered for moderate or severe pain, provider allows for administration of a medication prescribed for a lower pain scale. Do not exceed 4 grams of acetaminophen in a 24 hr period. Max dose of 2gm for AST/ALT greater than 120 units/L. If given for pain, use the following pain scale: Mild Pain = Pain Score of 1-3, CPOT 1-2 Moderate Pain = Pain Score of 4-6, CPOT 3-4 Severe Pain = Pain Score of 7-10, CPOT 5-8 Group 2: ketorolac (TORADOL) injection 15 mg (COMPLETED)Jump to med 15 mg, Intravenous, Every 6 Hours, First dose on Fri10/20/24 at 1700, For 24 hours, Pharmacy to stagger first dose 3 hours from the first post- Tylenol dose. ([facility]) If given for pain, use the following pain scale: Mild Pain = Pain Score of 1-3, CPOT 1-2 Moderate Pain = Pain Score of 4-6, CPOT 3-4 Severe Pain = Pain Score of 7- 10, CPOT 5-8 Followed by ibuprofen (ADVIL,MOTRIN) tablet 600 mgJump to med 600 mg, Oral, Every 6 Hours, First dose on Fri10/21/24 at 1700, Based on patient request - if ordered for moderate or severe pain, provider allows for administration of a medication prescribed for a lower pain scale. Mucous membrane irritant. Do not crush or chew tablet or capsule unless administered through a feeding tube. If given for pain, use the following pain scale: Mild Pain = Pain Score of 1-3, CPOT 1-2 Moderate Pain = Pain Score of 4-6, CPOT 3-4 Severe Pain = Pain Score of 7-10, CPOT 5-8 Group 3: aluminum-magnesium hydroxide-simethicone (MAALOX MAX) 400-400-40 MG/5ML suspension 15 mLJump to med 15 mL, Oral, Every 4 Hours PRN, Indigestion, Starting on Fri10/20/24 at 1318, Maximum 60 mL in 24 hours. Or calcium carbonate (TUMS) chewable tablet 500 mg (200 mg elemental)Jump to med 1 tablet, Oral, Every 4 Hours PRN, Indigestion, Heartburn, Starting on Fri10/20/24 at 1318, One tablet contains 200 mg elemental calcium. Take with food. Group 4: diphenhydrAMINE (BENADRYL) capsule 25 mgJump to med 25 mg, Oral, Every 4 Hours PRN, Itching, Starting on Fri10/20/24 at 1318, Caution: Look alike/sound alike drug alert. This med may be ordered in other forms and routes. Before giving verify the last time the drug was given by any route/form. Or diphenhydrAMINE (BENADRYL) injection 25 mgJump to med 25 mg, Intravenous, Every 4 Hours PRN, Itching, Starting on Fri10/20/24 at 1318, 25 mg may be given IV push over less than 1 minute. Caution: Look alike/sound alike drug alert. This med may be ordered in other forms and routes. Before giving verify the last time the drug was given by any route/form. Or diphenhydrAMINE (BENADRYL) injection 25 mgJump to med 25 mg, Intramuscular, Every 4 Hours PRN, Itching, Starting on Fri10/20/24 at 1318, 25 mg may be given IV push over less than 1 minute. Caution: Look alike/sound alike drug alert. This med may be ordered in other forms and routes. Before giving verify the last time the drug was given by any route/form. Group 5: oxyCODONE (ROXICODONE) immediate release tablet 5 mgJump to med 5 mg, Oral, Every 4 Hours PRN, Moderate Pain, Starting on Fri10/20/24 at 1111, For 5 days, Based on patient request - if ordered for moderate or severe pain, provider allows for administration of a medication prescribed for a lower pain scale. (MARCIA) If given for pain, use the following pain scale: Mild Pain = Pain Score of 1-3, CPOT 1-2 Moderate Pain = Pain Score of 4-6, CPOT 3-4 Severe Pain = Pain Score of 7-10, CPOT 5-8 Or oxyCODONE (ROXICODONE) immediate release tablet 10 mgJump to med 10 mg, Oral, Every 4 Hours PRN, Severe Pain, Starting on Fri10/20/24 at 1111, For 5 days, Based on patient request - if ordered for moderate or severe pain, provider allows for administration of a medication prescribed for a lower pain scale. If given for pain, use the following pain scale: Mild Pain = Pain Score of 1-3, CPOT 1-2 Moderate Pain = Pain Score of 4-6, CPOT 3-4 Severe Pain = Pain Score of 7-10, CPOT 5-8 documented in this encounter Care Teams Baseball [employer] Relationship Specialty Start Date End Date Provider, No Known [place] [id number] PCP - General 12/16/15 documented as of this encounter
--- OUTSIDE RECORDS SUMMARY | 2024-10-20 09:00 | XMS_ITS | Encounter Summary ---
Author Organization [facility] Address [address] [place] [address] Care Team Providers Care Agriculture Manager Name Role Phone Provider, No Known Primary Care Provider [phone] Reason for Visit * Reason Comments Scheduled [...] Expiration Date Visits Re quested Visits Authorized [id number] 1 1 Encounter Details Date Type Department Care Team (Late st Contact Info) Description 10/20/2024 9:00 AM EDT - 10/20/2024 10:00 AM EDT Surgery [facility] [address] [place] [phone] Ashley Cruz MD [address] [facility] [address] [place] [id number] SECTION REPEAT WITH TUBAL Social History Tobacco Use Types Packs/Day Years Used Date Smoking Tobacco: Every Day Cigarettes 1 5 Smokeless Tobacco: Never Tobacco Cessation:Ready to Q uit: Not Asked; Counseling Given: Not Answered Alcohol Use Standard Drinks/Week Comments Never 0 (1 standard drink = 0.6 oz pur e alcohol) [facility] Utilities Answer Date Recorded In the past 12 months has th e electric, gas, oil, or water [employer] threatened to shut off services in your [...] care, and heating? Not very hard 10/20/2024 [facility] [place] of Occupat ional Health - Occupational Stress [...] things needed for daily living? No 10/20/2024 Warnock Depression Scale Answer Date Recorded [place] Depression Scale Total 18 10/21/2024 The thought [...] GED or equivalent No 10/20/2024 Preferred Language Georgian 10/20/2024 PHQ-2 Answer Date Recorded Patient Health Questionnaire-2 Score 0 10/20/2024 Comments No Sex and Gender Information Value Date Recorded Sex Assigned at Not on file Legal Sex Female 1:47 PM EDT Gender Identity Not on file Sexual Orientation Not on file documented as of this encounter Last Filed Vital Signs Vital Sign Reading Time Taken Comments Blood Pressure 113/72 10/20/2024 8:15 AM EDT Pulse 87 10/20/2024 8:15 AM EDT Temperature 37.1 C (98.7 F) 10/20/2024 8:15 AM EDT Respiratory Rate 16 10/20/2024 8:15 AM EDT Oxygen Saturation 97% 10/20/2024 8:15 AM EDT Inhaled Oxygen Concentration - - Weight [...] 10/20/2024 7:47 AM Sayda Rodriguez RN * [place] Suicide Severity Rating Scale (Screener/Recent Self-Report) Question Answer Date of Assessment Author 6. Suicidal Behavior (Lifetime) No 7:47 AM Sayda Cummings RN * Question Answer Date of Assessment Author Little interest or pleasure in doing things Not at all 10/20/2024 7:53 AM Sayda Cummings RN Feeling down, depressed, or hopeless Not at all 10/20/2024 7:53 AM Sayda Cummings RN documented as of this encounter Discharge Summaries * Sosa Villavicencio APRN - 10/23/2024 1:15 PM EDT Discharge Summary Date of Admission: 10/20/2024 Date of Discharge: 10/23/2024 Patient: Sarah Bynum MR#:[id number] Delivery Provider: Ashley Cruz Presenting Problem/History of [...] known as: NARCAN Call 911. Don't prime. Corona in 1 nostril for overdose. Repeat in [...] Center 11/04/2024 10:50 AM Ashley Cruz MD [facility] 12/02/2024 11:10 AM Ashley Cruz MD [facility] Additional Instructions for the Follow-ups that [...] agree. Ashley Cruz MD Obstetrics and Gynecology [facility] documented in this encounter Medications at Time of Discharge buprenorphine (SUBUTEX) 8 MG sublingual tablet SL tablet 1.5 tablets/day (12 mg/day) naloxone (NARCAN) 4 MG/0.1ML nasal spray Call 911. Don't prime. Corona in 1 nostril for overdose. Repeat in [...] this encounter Progress Notes * Sosa Villavicencio, HABILITATIVE INTERVENTIONIST - 10/23/2024 10:30 AM EDT 10/23/2024 Name:Sarah Bynum MR#:[id number] PROGRESS NOTE: Post-Op 3 S/P HD:3 Subjective [...] AM EDT Willard Bynum : 1990 CSN: [id number] Hospital Day: 3 Post-operative Day #2 Subjective [...] Plans to stay to POD4 due to infant needing to be here longer for MAT monitoring Ashley Cruz MD 10/22/2024 08:33 EDT * Ashley Cruz MD - 10/21/2024 8:07 AM EDT Willard Bynum : 1990 CSN: [id number] Hospital Day: 2 Post-operative Day #1 Subjective [...] Will need 2h GTT at visit Ashley Cruz MD 10/21/2024 08:07 EDT * Ashley Cruz MD - 10/20/2024 12:09 PM EDT Delivered via section. See operative report. Ashley Cruz MD Obstetrics and Gynecology [facility] documented in this encounter H&P Notes * Ashley Cruz MD - 10/20/2024 8:08 AM EDT H&P reviewed. The patient was examined and there are no changes to the H&P. She confirms desire to proceed with sterilization today. Ashley Cruz MD Obstetrics and Gynecology [facility] Source Note - Ashley Cruz MD - 10/15/2024 10:50 AM EDT Sarah Bynum : 1990 CSN: [id number] History and Physical Subjective Sarah Bynum is [...] ABORH A Positive 11/19/2023 ABSCRN Negative 08/20/2024 [id number] Non Reactive 03/22/2024 Recent Labs Lab Results [...] Iglesias MD - 10/20/2024 7:09 AM EDT [facility] [place] Obstetric History and Physical Chief Complaint Patient [...] M CS-Unspec Gen TRAE Complications: Preeclampsia Name: Tian Past Medical History: Past Medical History: Diagnosis [...] agree. Ashley Cruz MD Obstetrics and Gynecology [facility] documented in this encounter Nursing Notes * Yesica Arredondo RN - 10/21/2024 4:30 PM EDT 10/21/24 1630 Maternal Information Person Making Referral portfolio consultant (courtesy follow up; pt reports baby is bottle feeding now, she will only breastfeed if she has no other choice; encouraged to call /outpt clinic as needed) * Fallon Franks RN - 10/20/2024 4:45 PM EDT 10/20/24 1645 Maternal Information Date of Referral 10/20/24 Person Making Referral portfolio consultant (courtesy; newly . 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 UOP: 175 mls. Antibiotics: Ancef Infant Name: Kelin Gender: female infant Weight: 3565 g (7 lb 13.8 oz) [...] Delayed cord clamping was performed and the was handed to the attending delivery team. The placenta was spontaneously extracted. The uterus was exteriorized and wiped free ofdebris and clot. The uterine incision was closed with 0-Monocryl in a continuous running fashion. Asecond 0-Monocryl was used to achieve hemostasis with a running suture. Attention was turned to the right fallopian tube. The fallopian tube was grasped with two [place] clamps and the Enseal was used to [...] 10/22/2024 10:33 AM EDT Continued Stay Note [facility] Patient Name: Sarah Bynum Today's Date: 10/22/2024 Admit Date: 10/20/2024 Plan: NUT SHELLER available Discharge Plan Row Name 10/22/24 1033 Plan Plan NUT SHELLER available Plan Comments Visited pt and fob. Pt allowed FOB to be present for conversation. Discussed risk forPPD. Pt stated she was unhappy she is trapped and unable to go outside. NUT SHELLER offered to show her where patio is. Pt states patio is currently locked. FOB stated he thought a mini refrigerator would besupplied. NUT SHELLER offered to place items in nourishment room frig and he declined. Pt denies concerns for PPD. NUT SHELLER offered to ask RN about early d/c. Spoke with RN who states Dr Cruz declined d/c today and RN will explain to pt. NUT SHELLER provided printed info on PPD to pt. [...] high risk in third trimester Special Needs RussEdd 11/02/2456S1Y2Mn/s w/az-GDMPh:[phone] POCT GLUCOSE FINGERSTICK Routine 10/20/2024 8:03 AM EDT TREPONEMA PALLIDUM AB W/REFLEX RPR STAT 10/20/2024 7:42 AM EDT CBC (NO DIFF) STAT 10/20/2024 7:42 AM EDT TYPE AND SCREEN Routine 10/20/2024 7:42 AM EDT documented in this encounter Results * (ABNORMAL) CBC Auto Differential (10/21/2024 5:00 AM EDT) WBC 9.55 3.40 - 10.80 10*3/mm3 10/21/2024 5:49 AM EDT [facility] RBC 2.78(L) 3.77 - 5.28 10*6/mm3 10/21/2024 5:49 AM EDT [facility] Hemoglobin 8.4(L) 12.0 - 15.9 g/dL 10/21/2024 5:49 AM EDT [facility] Hematocrit 25.1(L) 34.0 - 46.6 % 10/21/2024 5:49 AM EDT [facility] MCV 90.3 79.0 - 97.0 fL 10/21/2024 5:49 AM EDT [facility] MCH 30.2 26.6 - 33.0 pg 10/21/2024 5:49 AM EDT [facility] MCHC 33.5 31.5 - 35.7 g/dL 10/21/2024 5:49 AM EDT [facility] RDW 12.2(L) 12.3 - 15.4 % 10/21/2024 5:49 AM EDT [facility] RDW-SD 40.7 37.0 - 54.0 fl 10/21/2024 5:49 AM [facility] MPV 9.9 6.0 - 12.0 fL 10/21/2024 5:49 AM [facility] Platelets 208 140 - 450 10*3/mm3 10/21/2024 5:49 AM [facility] Neutrophil % 60.3 42.7 - 76.0 % 10/21/2024 5:49 AM [facility] Lymphocyte % 25.5 19.6 - 45.3 % 10/21/2024 5:[facility] Monocyte % 11.7 5.0 - 12.0 % 10/21/2024 5:49 AM [facility] Eosinophil % 1.6 0.3 - 6.2 % 10/21/2024 5:49 [facility] Basophil % 0.4 0.0 - 1.5 % 10/21/2024 5:49 AM [facility] Immature Grans % 0.5 0.0 - 0.5 % 10/21/2024 5:49 AM [facility] Neutrophils, Absolute 5.75 1.70 - 7.00 10*3/mm3 10/21/2024 5:49 AM [facility] Lymphocytes, Absolute 2.44 0.70 - 3.10 10*3/mm3 10/21/2024 5:49 [facility] Monocytes, Absolute 1.12(H) 0.10 - 0.90 10*3/mm3 10/21/2024 5:49 [facility] Eosinophils, Absolute 0.15 0.00 - 0.40 10*3/mm3 10/21/2024 5:49 [facility] Basophils, Absolute 0.04 0.00 - 0.20 10*3/mm3 10/21/2024 5:49 AM [facility] Immature Grans, Absolute 0.05 0.00 - 0.05 10*3/mm3 10/21/2024 5:49 AM EDT [facility] nRBC 0.0 0.0 - 0.2 /100 WBC 10/21/2024 5:49 AM EDT [facility] Blood Venipuncture / Unknown 10/21/2024 5:00 AM EDT 10/21/2024 5:30 AM EDT Ashley Cruz MD LAB BLOOD ORDERABLES Final Resul t [facility]
[address] [place] [address], * Tissue Pathology Exam (10/20/2024 9:55 AM EDT) Case Report Surgical Pathology Report Case: [id number] Authorizing Provider: Ashley Cruz MD Collected: 10/20/2024 09:55 AM Ordering Location: [facility] Received: 10/20/2024 01:57 PM LABOR DELIVERY Pathologist: Rafael Cutler MD Specimen: Fallopian Tubes, Bilateral 10/21/2024 1:14 PM EDT [facility] Clinical Information Request for sterilization 10/21/2024 1:14 PM EDT [facility] Final Diagnosis BILATERAL FALLOPIAN TUBES, SALPINGECTOMY: Two fallopian tubes with no significant histopathologic change each seen in full cross-section. 10/21/2024 1:14 PM EDT [facility] at 1314 EDT Gross Description 1. Fallopian Tubes, Bilateral. Received in formalin labeled fallopian tubes, bilateral are 2 undesignated, fimbriated fallopian tubes, measuring 7.9 x 0.9 cm and 9.3 x 0.9 cm. The external surfaces are red-purple, smooth, and glistening. No distinct lesions are grossly identified within either fallopian tube upon sectioning, and open claims representative sections are submitted as follows: 1A: [place] fallopian tube 1B: Longer fallopian tube AKG 10/21/2024 1:14 PM EDT [facility] Microscopic Description The slides are reviewed and demonstrate histopathologic features supporting the above rendered diagnosis. 10/21/2024 1:14 PM EDT [facility] Tissue Both fallopian tubes / Unknown 10/20/2024 9:55 AM EDT 10/20/2024 1:57 PM EDT us Ashley Cruz MD PATHOLOGY/CYTOLOGY ORDERABLES Fi nal Result Performing Organization Address [facility]/ZIP Co de Phone Number [facility]
[address] [place] [address], [place] [phone] * POC Glucose Once (10/20/2024 8:03 AM EDT) Glucose 106 70 - 130 mg/dL 10/20/2024 8:03 AM EDT [facility] Blood 10/20/2024 8:03 AM EDT 10/20/2024 8:03 AM EDT us Ashley Cruz MD POINT OF CARE TEST ORDERABLES Fi nal Result Performing Organization Address [facility] de Phone Number [facility]
[address] [place] [address], * Treponema pallidum AB w/Reflex RPR (10/20/2024 7:42 AM EDT) Treponemal AB Total Non-Reacti ve Non-React uday 10/20/2024 12:41 PM EDT [facility] Blood Venipuncture / Unknown 10/20/2024 7:42 AM EDT 10/20/2024 7:48 AM EDT Narrative [facility] - 10/20/2024 12:41 PM EDT Reactive results will reflex RPR testing. us Ashley Cruz MD LAB BLOOD ORDERABLES Final Resul t Performing Organization Address City/[facility] Co de Phone Number [facility]
[address] [place] [address], [place] [phone] * (ABNORMAL) CBC (No Diff) (10/20/2024 7:42 AM EDT) WBC 10.27 3.40 - 10.80 10*3/mm3 10/20/2024 8:08 AM EDT [facility] RBC 3.59(L) 3.77 - 5.28 10*6/mm3 10/20/2024 8:08 AM EDT [facility] Hemoglobin 10.6(L) 12.0 - 15.9 g/dL 10/20/2024 8:08 AM EDT [facility] Hematocrit 31.9(L) 34.0 - 46.6 % 10/20/2024 8:08 AM EDT [facility] MCV 88.9 79.0 - 97.0 fL 10/20/2024 8:08 AM EDT [facility] MCH 29.5 26.6 - 33.0 pg 10/20/2024 8:08 AM EDT [facility] MCHC 33.2 31.5 - 35.7 g/dL 10/20/2024 8:08 AM EDT [facility] RDW 12.3 12.3 - 15.4 % 10/20/2024 8:08 AM EDT [facility] RDW-SD 39.8 37.0 - 54.0 fl 10/20/2024 8:08 AM EDT [facility] MPV 10.0 6.0 - 12.0 fL 10/20/2024 8:08 AM EDT [facility] Platelets 260 140 - 450 10*3/mm3 10/20/2024 8:08 AM EDT [facility] Blood Venipuncture / Unknown 10/20/2024 7:42 AM EDT 10/20/2024 7:48 AM EDT us Ashley Cruz MD LAB BLOOD ORDERABLES Final Resul t [facility]
[address] [place] [address], [place] [phone] * Type & Screen (10/20/2024 7:42 AM EDT) ABO Type A 10/20/2024 8:27 AM EDT [facility] RH type Positive 10/20/2024 8:27 AM EDT [facility] Antibody Screen Negative 10/20/2024 8:27 AM EDT [facility] T&S Expiration Date 10/23/2024 11:59:59 PM 10/20/2024 8:27 AM EDT [facility] Blood Venipuncture / Unknown 10/20/2024 7:42 AM EDT 10/20/2024 7:54 AM EDT Ashley Cruz MD BLOOD BANK TEST ORDERABLES Edite d Result - Final [facility]
[address] [place] [id number], [place] [phone] documented in this encounter Visit Diagnoses Diagnosis Gestational diabetes mellitus (GDM)- Primary Previous section Other postprocedural status Request for sterilization care following delivery Diet controlled gestational diabetes mellitus (GDM) in third trimester Supervision of high risk in third trimester Diet controlled gestational diabetes mellitus (GDM) in third trimester Supervision of high risk in third trimester documented in this encounter Admitting Diagnoses Diagnosis Diet controlled gestational diabetes mellitus (GDM) in third trimester Supervision of high risk in third trimester Gestational diabetes mellitus (GDM) care following delivery documented in this encounter Administered Medications Inactive Administered Medications - up to 3 most recent administrations Medication Order MAR Action Action Date Dose Rate Site acetaminophen (TYLENOL) tablet 650 mg 650 mg, Oral, Every 6 Hours, First dose on Clauida 10/21/24 at 1400, If given for fever, use [...] CPOT 5-8 Given 10/23/2024 1:09 PM EDT 650 mg Given 10/23/2024 8:39 AM EDT 650 [...] Given 10/22/2024 8:52 AM EDT 6 mg calcium carbonate (TUMS) chewable tablet 500 mg (200 mg elemental) 1 tablet, Oral, Every 4 Hours PRN, Indigestion, Heartburn, Starting on Fri10/20/24 at 1318, One tablet contains 200 mg elemental calcium. Take with food. diphenhydrAMINE (BENADRYL) capsule 25 mg 25 mg, [...] Take with food if GI upset occurs. guaifenesin-dextromethorphan 600-30 mg (MUCINEX DM) 1 tablet [...] Given 10/22/2024 11:22 PM EDT 600 mg morphine injection 2 mg 2 mg, Intravenous, [...] Given 10/21/2024 8:12 AM EDT 80 mg documented in this encounter Active and Recently [...] CPOT 5-8 1301 (Given - Provider: Pili Molina RN)1999 (Given - Provider: Lexi Weber RN) 0240 (Given - Provider: Lexi Weber RN)0852 (Given - Provider: Pili Molina RN)1312 (Given - Provider: Pili Molina RN)2017 (Given - Provider: Lexi Weber RN) 0204 (Given - Provider: Lexi Weber RN)0839 (Given - Provider: Esperanza Umanzor, SILVIA)1309 (Given - Provider: Esperanza Umanzor, SILVIA) budesonide-formoterol (SYMBICORT) 160-4.5 MCG/ACT inhaler 2 puff 2 puff, Inhalation, 2 Times Daily, First dose on Fri10/20/24 at 2100, (SP) Shake well. Rinse mouth after use, do not swallow water. Send aerosols to pharmacy in ziplock bag for proper disposal. 0850 (Not Given - Provider: Nadine Vernon, EXECUTIVE SALES ASSISTANT - Reason: Patient/family refused)2241 (Not Given - Provider: Jassi Soto, EXECUTIVE SALES ASSISTANT - Reason: Other) 0954 (Not Given - Provider: Anju Acosta, EXECUTIVE SALES ASSISTANT - Reason: Patient/family refused)2240 (Not Given - Provider: Jassi Soto GAVINO - Reason: Other) 0917 (Not Given - [...] RN)2016 (Given - Provider: Lexi Weber RN) 0840 (Given - Provider: Esperanza Umanzor, SILVIA) ferrous sulfate tablet 325 mg 325 mg, [...] whole. 0812 (Given - Provider: Pili Molina RN)2099 (Not Given - Provider: Lexi Weber RN - Reason: Patient/family refused) 0855 (Not Given - Provider: Pili Molina RN - Reason: Patient/family refused)2100 (Not Given - Provider: Lexi Weber RN - Reason: Patient/family refused) 0918 [...] hours from the first post- Tylenol dose. ([facility]) If given for pain, use the following pain scale: Mild Pain = Pain Score of 1-3, CPOT 1-2 Moderate Pain = Pain Score of 4-6, CPOT 3-4 Severe Pain = Pain Score of 7-10, CPOT 5-8 0504 (Given - Provider: Carmella Thomas RN)1006 (Given - Provider: Pili Molina RN) nicotine (NICODERM CQ) 14 MG/24HR [...] chew capsule. 0812 (Given - Provider: Pili Molina RN)1999 (Given - Provider: Lexi Weber RN) 0840 [...] Starting on Fri10/20/24 at 1318, Group 2 ([place]) Hazardous Drug - Reproductive Risk Only - See Handling Guide miSOPROStol (CYTOTEC) tablet 600 mcg 600 mcg, Oral, As Needed, hemorrhage, Starting on Fri10/20/24 at 1318, Group 2 ([place]ana) Hazardous Drug - Reproductive Risk Only - [...] 0205 (Not Given: See Alt - Provider: Lexi Weber RN)0839 (Not Given: See Alt - Provider: Esperanza Umanzor RN)1427 (Not Given: See Alt - Provider: Esperanza Umanzor RN) oxytocin (PITOCIN) 30 units in 0.9% sodium chloride 500 mL (premix) 125 mL/hr, Intravenous, Once As Needed, PRN Bleeding for 1 Bag, Starting on Fri10/20/24 at 1318, For 1 dose, Consider 2nd agent prophylactically. Only order if patient is at high risk of bleeding and will need an additional bag (2 total). Group 2 (Idana) Hazardous Drug - Reproductive Risk Only - [...] hours from the first post- Tylenol dose. ([facility]) If given for pain, use [...] 5-8 documented in this encounter Care Teams Agriculture Manager Relationship Specialty Start Date End Date Provider, No Known [place], [place] [id number] PCP - General 12/16/15 documented as of this encounter
--- OUTSIDE RECORDS SUMMARY | 2024-10-20 09:19 | XMS_ITS | Encounter Summary ---
Author Organization [facility] Address [address] [place] [address] Care Team Providers Care Trade Mark Examiner Name Role Phone Provider, No Known Primary Care Provider [phone] Reason for Visit * Auth/Cert Specialty Diagnoses / Procedures Referred [...] Expiration Date Visits Re quested Visits Authorized 1 1 Encounter Details Date Type Department Care Team (Late st Contact Info) Description 10/20/2024 9:19 AM EDT Anesthesia Event [facility] [address] [place] [address] German Nicholas, DO [address] [place] [address] Padmini Gudino, DIAMOND POWDER TECHNICIAN [address] [place] [address] Anesthesia Record Procedure Summary Procedure Name Responsible Anesthesiologist Anesthesia Start Time Anesthesia Stop Time SECTION REPEAT WITH TUBAL (Bilateral: Abdomen) German Nicholas DO 10/20/24 0919 10/20/24 1036 Events Date Time Event Comment 10/20/2024 0907 0907 AN Equip Check 0919 An Start The patient was reevaluated immediately before moderate or deep sedation use and before anesthesia induction. 0919 An Start Data 0929 Spinal Placed 0944 Baby Delivered 1030 an stop data 1036 Handoff to RN The following has been completed: 1. Identification of Patient, gavin family member(s) or patient surrogate 2. Identification of the responsible Practitioner (primary service) 3. Discussion of the pertinent/attainable medical history 4. Discussion of the surgical/procedure course (procedure, reason for surgery, procedure performed) 5. Intraoperative anesthetic management and issue/concerns to include things such as airway, hemodynamics, narcotic, sedation level and paralytic management and intravenous fluids/blood products and urine output during the procedure 6. Expectations/Plans for the early post-procedure period to include things such as anticipated course (anticipatory guidance), complications, need for laboratory or ECG and medication administration 7. Opportunity for questions and acknowledgment of understanding of report from the receiving PACU/ICU team 1036 An Stop Meds Name Total oxytocin (PITOCIN) in sodium chloride 30 units/500 mL (premix) 633.33 mL oxytocin (PITOCIN) injection 6 Units bupivacaine 0.75%-dextrose 8.25% (SENSOR JEYSON) intrathecal injection 1.4 mL fentaNYL (SUBLIMAZE) 0.05 mg/mL 20 mcg fentaNYL (SUBLIMAZE) 0.05 mg/mL 80 mcg ondansetron 2 mg/mL 4 mg Famotidine (PF) 20 MG/2ML 20 mg midazolam 2 MG/2ML 2 mg morphine PF 0.5 MG/ML 0.1 mg ePHEDrine Sulfate (Pressors) 5 MG/ML 5 m g lactated ringers infusion 700 mL * Agents Name O2 N2O Air * Blood No blood administrations on file. Lines, Drains, and Airways Type Details Placement Removal Wound 10/20/24; 40; N; transverse; abdomen; Surgical; Closed Surgi 10/20/24939 by Sayda Chen RN Peripheral IV Placement Date: 10/20/24; Placement Time: 739; Catheter Size: 18 G; Orientation: Distal, Posterior, Right; Location: Forearm; Inserted by: SILVIA Siegel; Insertion Attempts: 1; Patient Tolerance: Tolerated well; Removal Date: 10/22/24; Removal Time: 0845 10/20/24739 by Sayda Chen RN 10/22/24844 by Pili Molina RN Urethral Catheter Placement Date: 10/20/24; Placement Time: 933; Inserted by: SILVIA Siegel; Type: Silicone; Balloon Size: 10 mL; Urine Returned: Yes; Removal Date: 10/21/24; Removal Time: 050; Removal Reason: Per protocol 10/20/24 0934 by Sayda hCen RN 10/21/24 050 by Carmella Thomas RN documented in this encounter Social History Tobacco Use Types Packs/Day Years Used Date Smoking Tobacco: Every Day Cigarettes 1 5 Smokeless Tobacco: Never Alcohol Use Standard Drinks/Week Comments Never 0 (1 standard drink = 0.6 oz pur e alcohol) [facility] Utilities Answer Date Recorded In the past 12 months has [employer], gas, oil, or water [employer] threatened to shut off services in your [...] care, and heating? Not very hard 10/20/2024 [facility] [place] of Occupat ional Health - Occupational Stress [...] things needed for daily living? No 10/20/2024 [place] Depression Scale Answer Date Recorded [place] Depression Scale Total 18 10/21/2024 The thought [...] GED or equivalent No 10/20/2024 Preferred Language Palestinian 10/20/2024 PHQ-2 Answer Date Recorded Patient Health [...] 10/20/2024 7:47 AM Sayda Rodriguez RN * [place] Suicide Severity Rating Scale (Screener/Recent Self-Report) Question [...] Cummings RN documented as of this encounter OR Notes * Anesthesia Postprocedure Evaluation - Carolina Pitts CRNA - 10/21/2024 11:47 AM EDT Patient: Sarah Bynum Procedure Summary Date: 10/20/24 Room / Location: [facility] Anesthesia Start: 918 Anesthesia Stop: 1035 Procedure: SECTION REPEAT WITH TUBAL (Bilateral: Abdomen) Diagnosis: Diet controlled gestational diabetes mellitus (GDM) in third trimester Supervision of high risk in third trimester (Diet controlled gestational diabetes mellitus (GDM) in third trimester [O24.410]) (Supervision of high risk in third trimester [O09.93]) Surgeons: Ashley Cruz MD Provider: German Nicholas DO Anesthesia Type: spinal, ITN ASA Status: 3 Anesthesia Type: spinal, ITN Vitals Vitals Value Taken Time BP 121/69 10/21/24 07:59 Temp 98.5 ??F (36.9 ??C) 10/21/24 07:59 Pulse 68 10/21/24 07:59 Resp 16 10/21/24 07:59 SpO2 100 % 10/20/24 12:31 Vitals shown include unfiled device data. Post Anesthesia Care and Evaluation Patient location during evaluation: bedside Patient participation: complete - patient participated Level of consciousness: awake and alert Pain management: adequate Airway patency: patent Anesthetic complications: No anesthetic complications Cardiovascular status: acceptable Respiratory status: acceptable Hydration status: acceptable Post Neuraxial Block status: Motor and sensory function returned to baseline and No signs or symptoms of PDPH * Anesthesia Postprocedure Evaluation - Padmini Gudino CRNA - 10/20/2024 10:43 AM EDT Patient: Sarah Bynum Procedure Summary Date: 10/20/24 Room / Location: [facility] Anesthesia Start: 918 Anesthesia Stop: 103 Procedure: SECTION REPEAT WITH TUBAL (Bilateral: Abdomen) Diagnosis: Diet controlled gestational diabetes mellitus (GDM) in third trimester Supervision of high risk in third trimester (Diet controlled gestational diabetes mellitus (GDM) in third trimester [O24.410]) (Supervision of high risk in third trimester [O09.93]) Surgeons: Ashley Cruz MD Provider: German Nicholas DO Anesthesia Type: spinal, ITN ASA Status: 3 Anesthesia Type: spinal, ITN Vitals Vitals Value Taken Time BP 122/71 10/20/24 10:35 Temp 97.8 ??F (36.6 ??C) 10/20/24 10:35 Pulse 97 10/20/24 10:42 Resp 16 10/20/24 10:35 SpO2 99 % 10/20/24 10:42 Vitals shown include unfiled device data. Post Anesthesia Care and Evaluation Patient location during evaluation: bedside Patient participation: complete - patient participated Level of consciousness: awake and alert Pain score: 0 Pain management: adequate Airway patency: patent Anesthetic complications: No anesthetic complications Cardiovascular status: acceptable Respiratory status: acceptable Hydration status: acceptable * Anesthesia Procedure Notes - Padmini Gudino CRNA - 10/20/2024 9:42 AM EDT Associated Order(s): Spinal Block Spinal Block Patient reassessed immediately prior to procedure Indication:procedure for pain Performed By LESIA/CAA: Padmini Gudino CRNA Preanesthetic Checklist Completed: patient identified, IV checked, risks and benefits discussed, surgical consent, monitorsand equipment checked, pre-op evaluation and timeout performed Spinal Block Prep: Patient Position:sitting Pain Management Nurse Practitioner:cap, gloves, mask and sterile barriers Prep:Betadine Patient Monitoring:blood pressure monitoring, continuous pulse oximetry and EKG Spinal Block Procedure Approach:midline Guidance:palpation technique Location:L3-L4 Needle Type:Pencan Needle Gauge:24 G Placement of Spinal needle event:cerebrospinal fluid aspirated Paresthesia: no Fluid Appearance:clear Post Assessment Patient Tolerance:patient tolerated the procedure well with no apparent complications Complications no * Anesthesia Preprocedure Evaluation - Padmini Gudino CRNA - 10/20/2024 9:04 AM EDT Anesthesia Evaluation Patient summary reviewed and Nursing notes reviewed NPO Solid Status: > 8 hours NPO Liquid Status: > 8 hours Airway Dental Pulmonary (+) a smoker Current, asthma, Cardiovascular - negative cardio ROS Neuro/Psych- negative ROSNumbness: Sciatica. 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 CODE STATUS: Code Status (Patient has no pulse and is not breathing): CPR (Attempt to Resuscitate) Medical Interventions (Patient has pulse or is breathing): Full Support Level Of Support Discussed With: Patient documented in this encounter Plan of Treatment Not on file documented as of this encounter Procedures Procedure Name Priority Date/Time Associated Diagnosis Comments [facility] AN SPINAL TRAY Routine 10/20/2024 9:42 AM EDT CA AN SPINAL BLOCK PROCEDURE FOR PAIN Routine 10/20/2024 9:42 AM EDT documented in this encounter Results * CA AN SPINAL BLOCK PROCEDURE FOR PAIN, [facility] AN SPINAL TRAY (10/20/2024 9:42 AM EDT) Narrative Padmini Gudino CRNA - 10/20/2024 9:42 AM EDT Padmini Gudino CRNA 10/20/2024 9:42 AM Spinal Block Patient reassessed immediately prior to procedure Indication:procedure for pain Performed By LESIA/CAA: Padmini Gudino CRNA Preanesthetic Checklist Completed: patient identified, IV checked, risks and benefits discussed, surgical consent, monitors and equipment checked, pre-op evaluation and timeout performed Spinal Block Prep: Patient Position:sitting Pain Management Nurse Practitioner:cap, gloves, mask and sterile barriers Prep:Betadine Patient Monitoring:blood pressure monitoring, continuous pulse oximetry and EKG Spinal Block Procedure Approach:midline Guidance:palpation technique Location:L3-L4 Needle Type:Pencan Needle Gauge:24 G Placement of Spinal needle event:cerebrospinal fluid aspirated Paresthesia: no Fluid Appearance:clear Post Assessment Patient Tolerance:patient tolerated the procedure well with no apparent complications Complications no German Nicholas DO ANESTHESIA ORDERABLES Final Result documented in this encounter Visit Diagnoses Not on filedocumented in this encounter Administered Medications Inactive Administered Medications - up to 3 most recent administrations Medication Order MAR Action Action Date Dose Rate Site bupivacaine in dextrose (MARCAINE SPINAL) 0.75-8.25 % injection Intrathecal, As Needed, Starting on Fri10/20/24 at 0929 Given 10/20/2024 9:29 AM EDT 1.4 mL ePHEDrine Sulfate (Pressors) 5 MG/ML injection Intravenous, As Needed, Starting on Fri10/20/24 at 0938 Given 10/20/2024 9:38 AM EDT 5 mg Famotidine (PF) (PEPCID) injection Intravenous, As Needed, Starting on Fri10/20/24 at 0921 Given 10/20/2024 9:21 AM EDT 20 mg fentaNYL citrate (PF) (SUBLIMAZE) injection Intravenous, As Needed, Starting on Fri10/20/24 at 1003 Given 10/20/2024 10:03 AM EDT 80 mcg fentaNYL citrate (PF) (SUBLIMAZE) injection Intrathecal, As Needed, Starting on Fri10/20/24 at 0929 Given 10/20/2024 9:29 AM EDT 20 mcg lactated ringers infusion 125 mL/hr, Intravenous, Continuous, Starting on Fri10/20/24 at 0815, For 4 hoursIndications:Previous section New Bag 10/20/2024 12:37 PM EDT 125 mL/hr 125 mL/hr Restarted 10/20/2024 10:12 AM EDT New Bag 10/20/2024 9:25 AM EDT 125 mL/hr 125 mL/hr midazolam (VERSED) injection Intravenous, As Needed, Starting on Fri10/20/24 at 0921 Given 10/20/2024 10:03 AM EDT 1 mg Given 10/20/2024 9:21 AM EDT 1 mg morphine PF (DURAMORPH) injection Intrathecal, As Needed, Starting on Fri10/20/24 at 0929 Given 10/20/2024 9:29 AM EDT 0.1 mg ondansetron (ZOFRAN) injection Intravenous, As Needed, Starting on Fri10/20/24 at 0921 Given 10/20/2024 9:21 AM EDT 4 mg oxytocin (PITOCIN) 30 units in 0.9% sodium chloride 500 mL (premix) Intravenous, Continuous PRN, Starting on Fri10/20/24 at 0945 Rate/Dose Change 10/20/2024 10:10 AM EDT 500 mL/hr 500 mL/hr New Bag 10/20/2024 9:45 AM EDT 1,000 mL/hr 1000 mL/hr oxytocin (PITOCIN) injection Intravenous, As Needed, Starting on Fri10/20/24 at 0945 Given 10/20/2024 9:45 AM EDT 6 Units documented in this encounter Care Teams Trade Mark Examiner Relationship Specialty Start Date End Date Provider, [place] [address] PCP - General 12/16/15 documented as of this encounter
--- OUTSIDE RECORDS SUMMARY | 2024-11-04 10:50 | XMS_ITS | Encounter Summary ---
Author Organization [facility] Address [address] [place] [address] Care Team Providers Care Carbonation Tester Name Role Phone Provider, No Known Primary Care Provider [phone] Reason for Visit * Reason Comments Care 2wk1d c-s ection / incision check / Some pain with incision, no leaking Encounter Details Date Type Department Care Team (Late st Contact Info) Description 11/04/2024 10:50 AM EDT Visit [facility] OBGYN [address] [facility] [address] [place] [phone] Ashley Cruz MD [address] [facility] [address] [place] [address] care following delivery (Primary Dx) Social History Tobacco Use Types Packs/Day Years Used Date Smoking Tobacco: Every Day Cigarettes 1 5 Smokeless Tobacco: Never Tobacco Cessation:Ready to Q uit: No; Counseling Given: No Alcohol Use Standard Drinks/Week Comments Never 0 (1 standard drink = 0.6 oz pur e alcohol) [facility] Utilities Answer Date Recorded In the past 12 months has [employer] gas, oil, or water [employer] threatened to shut off services in your [...] care, and heating? Not very hard 10/20/2024 [facility] [place] of Occupat ional Health - Occupational Stress [...] things needed for daily living? No 10/20/2024 [place] Depression Scale Answer Date Recorded [place] Depression Scale Total 3 11/04/2024 The thought [...] GED or equivalent No 10/20/2024 Preferred Language Vietnamese 10/20/2024 PHQ-2 Answer Date Recorded Patient Health Questionnaire-2 Score 0 10/20/2024 Comments No Sex and Gender Information Value Date Recorded Sex Assigned at Not on file Legal Sex Female 1:47 PM EDT Gender Identity Not on file Sexual Orientation Not on file documented as of this encounter Last Filed Vital Signs Vital Sign Reading Time Taken Comments Blood Pressure 126/84 11/04/2024 11:09 AM EDT Pulse - - Temperature - - Respiratory Rate - - Oxygen Saturation - - Inhaled Oxygen Concentration - - Weight 64 kg (141 lb 3.2 oz) 11/04/2024 11:09 AM EDT Height 152.4 cm (5') 11/04/2024 11:09 AM EDT Body Mass Index 27.58 11/04/2024 11:09 AM EDT documented in this encounter Progress Notes * Ashley Cruz MD - 11/04/2024 10:50 AM EDT Subjective Chief Complaint Patient presents with Care 2wk1d / incision check Sarah Bynum is a 34 y.o. year old presenting to be seen for her visit. She had a Repeat with bilateral total salpingectomy on 10/20/24. Her daughter is doing well with the exception of bad diaper rash. Not needing pain medication. Pain mostly okay except when she puts socks on. No bleeding. No problems with eating or drinking. She does not have concerns about post- blues/depression. Adamant Score = 3 She is bottle feeding. The following portions of the patient's history were reviewed and updated as appropriate:current medications and allergies Social History Tobacco Use Smoking status: Every Day Packs/day: 1.00 Years: 1 pack/day for 5.0 years (5.0 ttl pk-yrs) Types: Cigarettes Smokeless tobacco: Never Objective There were no vitals taken for this visit. General: well developed; well nourished no acute distress mentation appropriate Abdomen: incision is clean, dry, intact, and without drainage Pelvis: Not performed. Assessment Normal 2 week incision check exam S/P Repeat with bilateral total salpingectomy Plan Continue to increase activity Follow up in 4 weeks for visit No orders of the defined types were placed in this encounter. This note was electronically signed. Ashley Cruz MD Obstetrics and Gynecology [facility] Part of this note may be an electronic lawn care professional/translation of spoken language to printed textusing the Yummlyation System. documented in this encounter Plan of Treatment Not on file documented as of this encounter Visit Diagnoses Diagnosis care following delivery- Primary documented in this encounter Care Teams Carbonation Tester Relationship Specialty Start Date End Date Provider, [place] [address] PCP - General 12/16/15 documented as of this encounter
--- OUTSIDE RECORDS SUMMARY | 2024-12-10 14:29 | XMS_ITS | Referral Summary ---
Author Organization [employer] ([place], [place], [place], [place]) Address [address] [place] [address] Care Team Providers Care Chemicals Fermentation Operator Name Role Phone Unavailable Primary Care Provider Unavailabl e Allergies No known active allergies Medications Suboxone 8-[address] under the tongue daily. 4 Active dextroamphetami ne-amphetamine (ADDERALL XR) 15 MG 24 hr capsule Take by mouth daily as needed. 4 Active albuterol HFA (VENTOLIN HFA) 90 mcg/actuation inhaler Inhale 2 puffs by mouth via inhaler every 6 (six) hours as needed for Wheezing or Shortness of Breath. 1 Inhaler 5 4 Active umeclidinium-vi lanteroL (Anoro Ellipta) 62.5-25 mcg/actuation DsDv Inhale 1 puff by mouth via inhaler daily for 30 days. 1 each 5 4 Active Active Problems No known active problems Social History Tobacco Use Types Packs/Day Years Used Date Smoking Tobacco: Every Day Cigarettes Smokeless Tobacco: Never Tobacco Cessation:Ready to Q uit: Not Asked; Counseling Given: Not Answered Alcohol Use Standard Drinks/Week Comments Not Currently 0 (1 standard drink = 0.6 oz pur e alcohol) Food Insecurity Answer Date Recorded Food run out past 12 months Not on file 07/30 Food did not last past 12 months Not on file 08/20/2023 Employment Answer Date Recorded Help finding and keeping a job Not on file 0 08/20/2023 Family and Community Support Answer Gurmeet e Recorded Help with Day to Day Activities Not on file 08/20/2023 Feeling Lonely or Isolated Not on file 08/19 Educational Attainment Answer Date Zac rded Speak language other than [place] at home Not on file 08/20/2023 Want help with school or training Not on file 08/20/2023 Substance Use Answer Date Recorded Used prescription meds for non-medical reasons N ot on file 08/20/2023 Used illegal drugs past 12 months Not on file 08/20/2023 Comments Unknown Sex and Gender Information Value Date Recorded Sex Assigned at Not on file Legal Sex Female 5:27 PM CDT Gender Identity Not on file Sexual Orientation Not on file Last Filed Vital Signs Vital Sign Reading Time Taken Comments Blood Pressure 110/75 08/28/2023 11:46 AM EDT Pulse 79 08/28/2023 11:46 AM EDT Temperature 36.4 C (97.6 F) 08/28/2023 11:46 AM EDT Respiratory Rate 16 08/28/2023 11:46 AM EDT Oxygen Saturation 98% 08/28/2023 11:46 AM EDT Inhaled Oxygen Concentration - - Weight 59.1 kg (130 lb 6.4 oz) 08/28/2023 11:46 AM EDT Height 152.4 cm (5') 08/28/2023 11:46 AM EDT Body Mass Index 25.47 08/28/2023 11:46 AM EDT Plan of Treatment Not on file Insurance BLUE CROSS/BLUE SHIELD
--- OUTSIDE RECORDS SUMMARY | 2024-12-10 14:29 | XMS_ITS | Encounter Summary ---
Author Organization [facility] Address [address] [place] [address] Care Team Providers Care Commercial Sheet Metal Foreman Name Role Phone Provider, No Known Primary Care Provider [phone] Encounter Details Date Type Department Care Team (Latest Contact Info) Description 10/20/2024 Travel Social History Tobacco Use Types Packs/Day Years Used Date Smoking Tobacco: Every Day Cigarettes 1 5 Smokeless Tobacco: Never Alcohol Use Standard Drinks/Week Comments Never 0 (1 standard drink = 0.6 oz pur e alcohol) [facility] Utilities Answer Date Recorded In the past 12 months has [employer], gas, oil, or water company threatened [...] care, and heating? Not very hard 10/20/2024 [facility] [place] of Occupat ional Health - Occupational Stress [...] things needed for daily living? No 10/20/2024 [place] Depression Scale Answer Date Recorded [place] Depression Scale Total 18 10/21/2024 The thought [...] GED or equivalent No 10/20/2024 Preferred Language Thai 10/20/2024 PHQ-2 Answer Date Recorded Patient Health [...] 10/20/2024 7:47 AM Sayda Rodriguez RN * [place] Suicide Severity Rating Scale (Screener/Recent Self-Report) Question Answer Date of Assessment Author 6. Suicidal Behavior (Lifetime) No 7:47 AM Sayda Cummings RN * Question Answer Date of Assessment Author Little interest or pleasure in doing things Not at all 10/20/2024 7:53 AM Sayda Cummings RN Feeling down, depressed, or hopeless Not at all 10/20/2024 7:53 AM EDT Sayda Chen , SILVIA documented as of this encounter Plan of Treatment Not on file documented as of this encounter Visit Diagnoses Not on filedocumented in this encounter Care Teams Commercial Sheet Metal Foreman Relationship Specialty Start Date End Date Provider, [place] [address] PCP - General 12/16/15 documented as of this encounter
--- OUTSIDE RECORDS SUMMARY | 2024-12-10 14:29 | XMS_ITS | Encounter Summary ---
Author Organization [facility] Address [address] [place] [address] Care Team Providers Care Chief Deputy Name Role Phone Provider, No Known Primary Care Provider [phone] Encounter Details Date Type Department Care Team (Late st Contact Info) Description 08/05/2024 Results Follow-Up [facility] OBGYN [address] [place] [address] Ashley Cruz MD [address] [facility] [address] [place] [id number] Social History Tobacco Use Types Packs/Day Years [...] on file documented as of this encounter Plan of Treatment Not on file documented as of this encounter Visit Diagnoses Not on filedocumented in this encounter Care Teams Chief Deputy Relationship Specialty Start Date End Date Provider, [place] [address] PCP - General 12/16/15 documented as of this encounter
--- OUTSIDE RECORDS SUMMARY | 2024-12-10 14:29 | XMS_ITS | Clinical Summary ---
Author Organization [employer] ([place], [place], [place], [place]) Address [address] [place] [address] Care Team Providers Care Sterilizer Machine Operator Name Role Phone Unavailable Primary Care [...] Date Zac rded Speak language other than Iraqi at home Not on file 08/20/2023 Want [...] 08/28/2023 11:46 AM EDT Plan of Treatment Health Maintenance Due Date Last Done Comments Depression Screening (12+) 2002 HIV Screening 2005 Hepatitis C Screening 2008 Lipid Panel 2010 Pap Smear 06/04/2011 Pneumococcal Vaccine: 0-49 Y ears (2 of 2 - PPSV23, PCV20, or PCV21) 10/06/2014 08/11/2014 Tobacco Cessation Counseling and Screening (12+) 08/27/2024 08/28/2023 COVID-19 VACCINE (1 - 2023-2 5 season) 2024 Influenza Vaccine (#1) 2024 DTAP/TDAP/TD VACCINES (9 - T d or Tdap) 09/12/2025 09/13/2015, 08/11/2014, 07/01/2002, Additional history exists Insurance BLUE CROSS/BLUE SHIELD
--- OUTSIDE RECORDS SUMMARY | 2024-12-10 14:29 | XMS_ITS | Encounter Summary ---
Author Organization [facility] Address [address] [place] [address] Care Team Providers Care Ophthalmologist Name Role Phone Provider, No Known Primary Care Provider [phone] Encounter Details Date Type Department Care Team (Late st Contact Info) Description 10/20/2024 Results Follow-Up [facility] [address] [facility] [address] [place] [address] Ashley Cruz MD [address] [facility] [address] [place] [address] Social History Tobacco Use Types Packs/Day Years Used Date Smoking Tobacco: Every Day Cigarettes 1 5 Smokeless Tobacco: Never Alcohol Use Standard Drinks/Week Comments Never 0 (1 standard drink = 0.6 oz pur e alcohol) [facility] Utilities Answer Date Recorded In the past 12 months has [employer], gas, oil, or water [employer] threatened to shut off services in your [...] Never 10/20/2024 Overall Financial Resource Strain (CARDIA) Najmae r Date Recorded How hard is it for you to pa y for the very basics like food, housing, medical care, and heating? Not very hard 10/20/2024 [facility] [place] [facility] Occupat ional Health - Occupational Stress [...] things needed for daily living? No 10/20/2024 [place] Depression Scale Answer Date Recorded [place] Depression Scale Total 18 10/21/2024 The thought [...] GED or equivalent No 10/20/2024 Preferred Language Japanese 10/20/2024 PHQ-2 Answer Date Recorded Patient Health [...] 1 Month) No 10/20/2024 7:47 AM Neno Cummings, RN * Calculated C-SSRS Risk Score (Lifetime/Recent) Answer Date of Assessment Author No Risk Indicated 10/20/2024 7:47 AM Sayda Rodriguez RN * [place] Suicide Severity Rating Scale (Screener/Recent Self-Report) Question [...] Cummings RN documented as of this encounter Plan of Treatment Not on file documented as of this encounter Visit Diagnoses Not on filedocumented in this encounter Care Teams Ophthalmologist Relationship Specialty Start Date End Date Provider, [place] [address] PCP - General 12/16/15 documented as of this encounter
--- OUTSIDE RECORDS SUMMARY | 2024-12-10 14:29 | XMS_ITS | Clinical Summary ---
Author Organization 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 Don't prime. [place] in 1 nostril for overdose. Repeat in 2-3 minutes in other nostril if no or minimal breathing/re sponsiveness . 2 each 10/23/2024 2:06 PM EDT 10/23/2024 Active Active Problems Problem Noted Date Diagnosed Date Gestational diabetes mellitus (GDM) 10/20/2024 care following delivery 09/29 Previous section 10/15/2024 Candidiasis of mouth 10/13/2024 History of eclampsia 08/04/2024 Opioid dependence in remission 08/04/2024 Resolved Problems Problem Noted Date Diagnosed Date Resolved Date Diet controlled gestational diabetes mellitus (GDM) in third trimester 10/08/2024 10/20/2024 Supervision of high risk pre gnancy in third trimester 08/04/2024 10/20/2024 Encounters Date Type Department Care Team Description 11/04/2024 10:50 AM EDT Visit [facility] [address] [facility] [address] [place] [address] Ashley Clements MD care following delivery (Primary Dx) 11/04/2024 Travel 11/02/2024 Maternal Screening [facility] NURSE CALL [facility] [address] [facility] [place] [address] Nicole Price, RN 10/25/2024 Maternal Screening [facility] [address] [facility] [place] [phone] Nicole Price RN 10/22/2024 Results Follow-Up [facility] LAB[facility] DELIVERY [address] [place] [address] Ashley Clements MD 10/20/2024 9:19 AM EDT Anesthesia Event [facility] [address] [place] [address] German Nicholas, Padmini Patel, EXTENSION SPECIALIST 10/20/2024 9:00 AM EDT - 10/20/2024 10:00 AM EDT Surgery [facility] [address] [place] [address] Ashley Clements MD SECTION REPEAT WITH TUBAL 10/20/2024 7:08 AM EDT - 10/23/2024 2:39 PM EDT Hospital Encounter [facility] MOTHER BABY 4B [address] [facility] [place] [address] Ashley Clements MD care following delivery (Primary Dx); Previous section; Request for sterilization Discharge Disposition: Home or Self Care 10/20/2024 Results Follow-Up [facility] OBGYN [address] [facility] [address] [place] [address] Ashley Clements MD 10/20/2024 Travel 10/19/2024 Prep for Surgery [facility] ORDERS ONLY [address] [facility] [place] [address] Ashley Clements MD 10/15/2024 10:50 AM EDT Routine [facility] OBGYN [address] [facility] [address] JOSE DANIEL [address] [place] [phone] Ashley Clements MD GA: 37w3d 10/15/2024 9:33 AM EDT Hospital Encounter [facility] [phone] 32 weeks gestation of ; Supervision of high risk in third trimester; History of eclampsia; Opioid dependence in remission; Previous section; Hepatitis C virus infection in mother during - undetectable quant; Gestational diabetes mellitus (GDM) in third trimester, gestational diabetes method of control unspecified 10/15/2024 Travel 10/08/2024 9:30 AM EDT Routine [facility] OBGYN [address] [facility] [address] [place] [phone] Ashley Clements MD GA: 36w3d 10/08/2024 8:57 AM EDT Hospital Encounter [facility] [phone] 32 weeks gestation of ; Supervision of high risk in third trimester; History of eclampsia; Opioid dependence in remission; Previous section; Hepatitis C virus infection in mother during - undetectable quant 10/08/2024 Travel 09/29/2024 11:10 AM EDT Routine [facility] OBGYN [address] [address] Ashley Clements MD GA: 35w1d 09/29/2024 10:30 AM EDT Hospital Encounter [facility] [phone] 32 weeks gestation of ; Supervision of high risk in third trimester; History of eclampsia; Opioid dependence in remission; Previous section; Hepatitis C virus infection in mother during - undetectable quant 09/29/2024 Travel 09/21/2024 11:00 AM EDT Routine [facility] OBGYN [address] [facility] [address] JOSE DANIEL [address] [place] [phone] Ashley Clements MD GA: 34w0d 09/21/2024 10:20 AM EDT Hospital Encounter [facility] [place] [phone] 32 weeks gestation of ; Supervision of high risk in third trimester; History of eclampsia; Opioid dependence in remission; Previous section; Hepatitis C virus infection in mother during - undetectable quant 09/21/2024 Travel 09/15/2024 11:10 AM EDT Routine [facility] OBGYN [address]SE DANIEL [address] [place] [address] Ashley Clements MD GA: 33w1d 09/15/2024 10:30 AM EDT Hospital Encounter [facility] [place] [phone] 32 weeks gestation of ; Supervision of high risk in third trimester; History of eclampsia; Opioid dependence in remission; Previous section; Hepatitis C virus infection in mother during - undetectable quant 09/15/2024 Travel 09/10/2024 2:28 PM EDT Hospital Encounter [facility] [place] [phone] 32 weeks gestation of ; Supervision of high risk in third trimester; History of eclampsia; Opioid dependence in remission; Previous section; Hepatitis C virus infection in mother during - undetectable quant 09/10/2024 1:50 PM EDT Routine [facility] OBGYN [address] [facility] [address] [place] [phone] Ashley Clements MD GA: 32w3d 09/10/2024 Results Follow-Up [facility] OBGYN [address] [facility] [address] [place] [phone] Kayla Mayo APRN 09/10/2024 Travel from Last 3 Months Immunizations Immunization Administration Dates Next Due DTaP / Hep B / IPV 08/11/2014 DTaP, Unspecified 11/06/1994, 2,04/28/1991,1990,1990 HPV Quadrivalent 07/18/2006 Hep A, 2 Dose 05/13/2016 Hep B, Adolescent or Pediatric 07/01/2002,2001,11/05/2001 Hepatitis A 05/13/2016,09/13/2015 HiB 02/02/1992, 2,1990,1990 Hib (PRP-T) 08/11/2014 IPV 11/06/1994, 2,1990,1990 MMR 10/29/1996,02/02/1992 Pneumococcal Conjugate 13-Va lent (PCV13) 08/11/2014 Rotavirus Pentavalent 08/11/2014 Td (TDVAX) 07/01/2002 Tdap 09/13/2015 Family History Medical History Relation Name Comments Hypertension Father Graves' disease Mother Memory loss Mother Breast cancer Neg Hx Colon cancer Neg Hx Osteoporosis Neg Hx Ovarian cancer Neg Hx Uterine cancer Neg Hx Relation Name Status Comments Father Alive Mother Alive Social History Tobacco Use Types Packs/Day Years Used Date Smoking Tobacco: Every Day Cigarettes 1 5 Smokeless Tobacco: Never Tobacco Cessation:Ready to Q uit: No; Counseling Given: No Alcohol Use Standard Drinks/Week Comments Never 0 (1 standard drink = 0.6 oz pur e alcohol) Kon[employer]ities Answer Date Recorded In the past 12 months has [employer], gas, oil, or water [employer] threatened to shut off services in your [...] care, and heating? Not very hard 10/20/2024 [facility] of Occupat ional Health - Occupational Stress [...] things needed for daily living? No 10/20/2024 Maurice Depression Scale Answer Date Recorded Maurice Depression Scale Total 3 11/04/2024 The thought [...] GED or equivalent No 10/20/2024 Preferred Language Chadian 10/20/2024 PHQ-2 Answer Date Recorded Patient Health Questionnaire-2 Score 0 10/20/2024 Comments No Sex and Gender Information Value Date Recorded Sex Assigned at Not on file Legal Sex Female 1:47 PM EDT Gender Identity Not on file Sexual Orientation Not on file Last Filed Vital Signs Vital Sign Reading Time Taken Comments Blood Pressure 126/84 11/04/2024 11:09 AM EDT Pulse 65 10/23/2024 8:32 AM EDT Temperature 37 C (98.6 F) 10/23/2024 8:32 AM EDT Respiratory Rate 16 10/23/2024 8:32 AM EDT Oxygen Saturation 100% 10/20/2024 12:30 PM EDT Inhaled Oxygen Concentration - - Weight 64 kg (141 lb 3.2 oz) 11/04/2024 11:09 AM EDT Height 152.4 cm (5') 11/04/2024 11:09 AM EDT Body Mass Index 27.58 11/04/2024 11:09 AM EDT Plan of Treatment Health Maintenance Due Date Last Done Comments Annual Gynecologic Pelvic an d Breast Exam 1990 PAP SMEAR 06/04/2011 Pneumococcal Vaccine 0-49 (2 of 2 - PPSV23) 10/06/2014 08/11/2014 ANNUAL PHYSICAL 12/04/2016 COVID-19 Vaccine (2023-2 5 season) 2024 INFLUENZA VACCINE 12/29/2024 TDAP/TD VACCINES (3 - Td or Tdap) 09/12/2025 016, 07/01/2002 Hepatitis B Completed 08/11/2014, 05/2002, 01/14/2002, Additional history exists HEPATITIS C SCREENING Completed 10/29/2024 , 10/15/2024, 10/08/2024, Additional history exists Procedures Procedure Name Priority Date/Time Associated Diagnosis Comments CBC AND DIFFERENTIAL Routine 10/21/2024 5:00 AM EDT CBC WITH AUTO DIFFERENTIAL Routine 10/21/2024 5:00 AM EDT TISSUE PATHOLOGY EXAM Routine 10/20/2024 9:55 AM EDT Request for sterilization HC BH AN SPINAL TRAY Routine 10/20/2024 9:42 AM EDT VT AN SPINAL BLOCK PROCEDURE FOR PAIN Routine 10/20/2024 9:42 AM EDT SECTION REPEAT WITH TUBAL 10/20/2024 9:19 AM EDT Diet controlled gestational diabetes mellitus (GDM) in third trimester Supervision of high risk in third trimester Special Needs RussEdd 11/02/[id number]/s w/salp-GDMPh:[phone] POCT GLUCOSE FINGERSTICK Routine 10/20/2024 8:03 AM EDT TYPE AND SCREEN Routine 10/20/2024 7:42 AM EDT TREPONEMA PALLIDUM AB W/REFLEX RPR STAT 10/20/2024 7:42 AM EDT CBC (NO DIFF) STAT 10/20/2024 7:42 AM EDT POCT URINALYSIS DIPSTICK, MANUAL Routine 10/15/2024 10:56 AM EDT US OB FOLLOW UP TRANSABDOMINAL APPROACH Routine 10/15/2024 10:37 AM EDT Gestational diabetes mellitus (GDM) in third trimester, gestational diabetes method of control unspecified US BIOPHYSICAL PROFILE;WITHOUT NON-STRESS TESTING Routine 10/15/2024 10:37 AM EDT 32 weeks gestation of Supervision of high risk in third trimester History of eclampsia Opioid dependence in remission Previous section Hepatitis C virus infection in mother during - undetectable quant GROUP B STREP, PCR (MDL) Routine 10/15/2024 Previous section POCT URINALYSIS DIPSTICK, MANUAL Routine 10/08/2024 11:57 AM EDT US BIOPHYSICAL PROFILE;WITHOUT NON-STRESS TESTING Routine 10/08/2024 9:20 AM EDT 32 weeks gestation of Supervision of high risk in third trimester History of eclampsia Opioid dependence in remission Previous section Hepatitis C virus infection in mother during - undetectable quant POCT URINALYSIS DIPSTICK, MANUAL Routine 09/29/2024 12:53 PM EDT US BIOPHYSICAL PROFILE;WITHOUT NON-STRESS TESTING Routine 09/29/2024 11:01 AM EDT 32 weeks gestation of Supervision of high risk in third trimester History of eclampsia Opioid dependence in remission Previous section Hepatitis C virus infection in mother during - undetectable quant POCT URINALYSIS DIPSTICK, MANUAL Routine 09/21/2024 11:50 AM EDT US BIOPHYSICAL PROFILE;WITHOUT NON-STRESS TESTING Routine 09/21/2024 10:49 AM EDT 32 weeks gestation of Supervision of high risk in third trimester History of eclampsia Opioid dependence in remission Previous section Hepatitis C virus infection in mother during - undetectable quant POCT URINALYSIS DIPSTICK, MANUAL Routine 09/15/2024 11:41 AM EDT US BIOPHYSICAL PROFILE;WITHOUT NON-STRESS TESTING Routine 09/15/2024 11:11 AM EDT 32 weeks gestation of Supervision of high risk in third trimester History of eclampsia Opioid dependence in remission Previous section Hepatitis C virus infection in mother during - undetectable quant US BIOPHYSICAL PROFILE;WITHOUT NON-STRESS TESTING Routine 09/10/2024 3:14 PM EDT 32 weeks gestation of Supervision of high risk in third trimester History of eclampsia Opioid dependence in remission Previous section Hepatitis C virus infection in mother during - undetectable quant POCT URINALYSIS DIPSTICK, MANUAL Routine 09/10/2024 2:36 PM EDT from Last 3 Months Results * (ABNORMAL) CBC Auto Differential (10/21/2024 5:00 AM EDT) WBC 9.55 3.40 - 10.80 10*3/mm3 10/21/2024 5:49 AM EDT [facility] RBC 2.78(L) 3.77 - 5.28 10*6/mm3 10/[facility]24 [facility] Hemoglobin 8.4(L) 12.0 - 15.9 g/dL 10/21/2024 5:49 AM EDT [facility] Hematocrit 25.1(L) 34.0 - 46.6 % 10/21/2024 5:49 AM EDT [facility] MCV 90.3 79.0 - 97.0 fL 10/21/2024 5:49 [facility] MCH 30.2 26.6 - 33.0 pg 10/21/2024 5:49 [facility] MCHC 33.5 31.5 - 35.7 g/dL 10/21/2024 5:49 AM [facility] RDW 12.2(L) 12.3 - 15.4 % 10/21/2024 5:49 AM [facility] RDW-SD 40.7 37.0 - 54.0 fl 10/21/2024 5:49 AM [facility] MPV 9.9 6.0 - 12.0 fL 10/21/2024 5:49 AM [facility] Platelets 208 140 - 450 10*3/mm3 10/21/2024 5:49 AM EDT [facility] Neutrophil % 60.3 42.7 - 76.0 % 10/21/2024 5:49 [facility] Lymphocyte % 25.5 19.6 - 45.3 % 10/21/2024 5:49 [facility] Monocyte % 11.7 5.0 - 12.0 % 10/21/2024 5:49 [facility] Eosinophil % 1.6 0.3 - 6.2 % 10/21/2024 5:49 [facility] Basophil % 0.4 0.0 - 1.5 % 10/21/2024 5:49 AM EDT [facility] Immature Grans % 0.5 0.0 - 0.5 % 10/21/2024 5:49 AM EDT [facility] Neutrophils, Absolute 5.75 1.70 - 7.00 10*3/mm3 10/21/2024 5:49 AM EDT [facility] Lymphocytes, Absolute 2.44 0.70 - 3.10 10*3/mm3 10/21/2024 5:49 AM EDT [facility] Monocytes, Absolute 1.12(H) 0.10 - 0.90 10*3/mm3 10/21/2024 5:49 AM EDT [facility] Eosinophils, Absolute 0.15 0.00 - 0.40 10*3/mm3 10/21/2024 5:49 AM EDT [facility] Basophils, Absolute 0.04 0.00 - 0.20 10*3/mm3 10/21/2024 5:49 AM EDT [facility] Immature Grans, Absolute 0.05 0.00 - 0.05 10*3/mm3 10/21/2024 5:49 AM EDT [facility] nRBC 0.0 0.0 - 0.2 /100 WBC 10/21/2024 5:49 AM EDT [facility] Blood Venipuncture / Unknown 10/21/2024 5:00 AM EDT 10/21/2024 5:30 AM EDT Ashley Clements MD LAB BLOOD ORDERABLES Final Resul t [facility]
[address] [place] [address], * Tissue Pathology Exam (10/20/2024 9:55 AM EDT) Case Report Surgical Pathology Report Case: [id number] Authorizing Provider: Ashley Clements MD Collected: 10/20/2024 09:55 AM Ordering Location: [facility] Received: 10/20/2024 01:57 PM LABOR DELIVERY Pathologist: Rafael Cutler MD Specimen: Fallopian Tubes, Bilateral 10/21/2024 1:14 PM EDT [facility] Clinical Information Request for sterilization 10/21/2024 1:14 PM EDT [facility] Final Diagnosis BILATERAL FALLOPIAN TUBES, SALPINGECTOMY: Two fallopian tubes with no significant histopathologic change each seen in full cross-section. 10/21/2024 1:14 PM EDT [facility] at 1314 EDT Gross Description 1. Fallopian Tubes, Bilateral. Received in formalin labeled fallopian tubes, bilateral are 2 undesignated, fimbriated fallopian tubes, measuring 7.9 x 0.9 cm and 9.3 x 0.9 cm. The external surfaces are red-purple, smooth, and glistening. No distinct lesions are grossly identified within either fallopian tube upon sectioning, and medical office representative sections are submitted as follows: 1A: [place] fallopian tube 1B: Longer fallopian tube AKG 10/21/2024 1:14 PM EDT [facility] Microscopic Description The slides are reviewed and demonstrate histopathologic features supporting the above rendered diagnosis. 10/21/2024 1:14 PM EDT [facility] Tissue Both fallopian tubes / Unknown 10/20/2024 9:55 AM EDT 10/20/2024 1:57 PM EDT Ashley Clements MD PATHOLOGY/CYTOLOGY ORDERABLES Fi nal Result [facility]
[address] [place] [address], * VT AN SPINAL BLOCK PROCEDURE FOR PAIN, HC BH AN SPINAL TRAY (10/20/2024 9:42 AM EDT) Narrative Padmini Gudino CRNA - 10/20/2024 9:42 AM EDT Padmini Gudino CRNA 10/20/2024 9:42 AM Spinal Block Patient reassessed immediately prior to procedure Indication:procedure for pain Performed By EXTENSION SPECIALIST/CAA: Padmini Gudino CRNA Preanesthetic Checklist Completed: patient identified, IV checked, risks and benefits discussed, surgical consent, monitors and equipment checked, pre-op evaluation and timeout performed Spinal Block Prep: Patient Position:sitting University President:cap, gloves, mask and sterile barriers Prep:Betadine Patient Monitoring:blood pressure monitoring, continuous pulse oximetry and EKG Spinal Block Procedure Approach:midline Guidance:palpation technique Location:L3-L4 Needle Type:Pencan Needle Gauge:24 G Placement of Spinal needle event:cerebrospinal fluid aspirated Paresthesia: no Fluid Appearance:clear Post Assessment Patient Tolerance:patient tolerated the procedure well with no apparent complications Complications no German Nicholas DO ANESTHESIA ORDERABLES Final Result * POC Glucose Once (10/20/2024 8:03 AM EDT) Glucose 106 70 - 130 mg/dL 10/20/2024 8:03 AM EDT [facility] Blood 10/20/2024 8:03 AM EDT 10/20/2024 8:03 AM EDT us Ashley Clements MD POINT OF CARE TEST ORDERABLES Fi nal Result Performing Organization Address [facility] Co de Phone Number [facility]
[address] [place] [address], * Treponema pallidum AB w/Reflex RPR (10/20/2024 7:42 AM EDT) Treponemal AB Total Non-Reacti ve Non-React uday 10/20/2024 12:41 PM EDT [facility] Blood Venipuncture / Unknown 10/20/2024 7:42 AM EDT 10/20/2024 7:48 AM EDT Narrative [facility] - 10/20/2024 12:41 PM EDT Reactive results will reflex RPR testing. us Ashley Clements MD LAB BLOOD ORDERABLES Final Resul t Performing Organization Address City/[facility]/ZIP Co de Phone Number [facility]
[address] [place] [address], * (ABNORMAL) CBC (No Diff) (10/20/2024 7:42 AM EDT) WBC 10.27 3.40 - 10.80 10*3/mm3 10/20/2024 8:08 AM EDT [facility] RBC 3.59(L) 3.77 - 5.28 10*6/mm3 10/20/2024 8:08 AM EDT [facility] Hemoglobin 10.6(L) 12.0 - 15.9 g/dL 10/20/2024 8:08 AM EDT [facility] Hematocrit 31.9(L) 34.0 - 46.6 % 10/20/2024 8:08 AM EDT [facility] MCV 88.9 79.0 - 97.0 fL 10/20/2024 8:08 AM EDT [facility] MCH 29.5 26.6 - 33.0 pg 10/20/2024 8:08 AM EDT [facility] MCHC 33.2 31.5 - 35.7 g/dL 10/20/2024 8:08 AM EDT [facility] RDW 12.3 12.3 - 15.4 % 10/20/2024 8:08 AM EDT [facility] RDW-SD 39.8 37.0 - 54.0 fl 10/20/2024 8:08 AM EDT [facility] MPV 10.0 6.0 - 12.0 fL 10/20/2024 8:08 AM EDT [facility] Platelets 260 140 - 450 10*3/mm3 10/20/2024 8:08 AM EDT [facility] Blood Venipuncture / Unknown 10/20/2024 7:42 AM EDT 10/20/2024 7:48 AM EDT us Ashley Clements MD LAB BLOOD ORDERABLES Final Resul t [facility]
[address] [place] [address], * Type & Screen (10/20/2024 7:42 AM EDT) ABO Type A 10/20/2024 8:27 AM EDT [facility] RH type Positive 10/20/2024 8:27 AM EDT [facility] Antibody Screen Negative 10/20/2024 8:27 AM EDT [facility] T&S Expiration Date 10/23/2024 11:59:59 PM 10/20/2024 8:27 AM EDT [facility] Blood Venipuncture / Unknown 10/20/2024 7:42 AM EDT 10/20/2024 7:54 AM EDT us Ashley Clements MD BLOOD BANK TEST ORDERABLES Edite d Result - Final Performing Organization Address City/[facility]/ZIP Co de Phone Number [facility]
[address] [place] [address], * (ABNORMAL) POC Urinalysis Dipstick (10/15/2024 10:56 AM EDT) Only the most recent of6 resultswithin the time period is included. Glucose, UA Negative Negative mg/dL Protein, POC Trace(A) Negative mg/dL Urine 10/15/2024 10:5 6 AM EDT [facility] Provider POINT OF CARE TEST ORDERA BLES Final Result * US Biophysical Profile;Without Non-Stress Testing (10/15/2024 10:37 AM EDT) Only the most recent of6 resultswithin the time period is included. Anatomical Region Laterality Modality Body Ultrasound 10/15/2024 10:1 8 AM EDT Narrative 10/15/2024 12:29 PM EDT PAT NAME: NILSON MESSER MED REC#: [id number] DA: 1990 PAT GEND: F PAT TYPE: O EXAM GUREMET: <OBR.7.1>[id number]</OBR.7.1><OBR.7.1>[id number]</OBR.7.1> REF PHYS ASHLEY CLEMENTS Indication ======== history [...] movements 2: tone 2: Amniotic fluid volume 8/8 Biophysical profile score Biometry Standard BPD 88.5 mm 35w 5d 17% Hadlock OFD 116.2 mm -/- 85% Hugo HC 330.3 mm 37w 4d 23% Hadlock AC 337.0 mm 37w 4d 60% Hadlock Femur 70.8 mm 36w 2d 16% Hadlock HC / AC 0.98 EFW 3,110 g 37w 3d 41% Hadlock EFW (lb) 6 lb EFW (oz) 14 oz EFW by: Hadlock ([id number]) Other: An ultrasound for weight has a [...] EFW (oz) 14 oz EFW by: Hadlock ([id number]) Other: An ultrasound for weight has a [...] of testing for the condition being monitored. Trimmer Helper: Debo Guerrero RDMS Physician: Ashley Clements MD Electronically signed by: Ashley Clements MD at: 12:29 Procedure Note Ashley Clements MD - 10/15/2024 PAT NAME: NILSON MESSER MED REC#: [id number] DA: 1990 PAT GEND: F PAT TYPE: O EXAM GURMEET:<OBR.7.1>[id number]</OBR.7.1><OBR.7.1>[id number]</OBR.7.1> REF PHYS ASHLEY CLEMENTS Indication ======== history [...] GA37 w + 6 d Assigned MELANI:10/30/2024 [id number] d General Evaluation Cardiac activity present. FHR [...] Standard BPD88.5 mm 35w 5d 17% Hadlock TAR921.2 mm -/- 85% Hugo HC330.3 mm 37w 4d 23% Hadlock AC337.0 mm 37w 4d 60% Hadlock Femur70.8 mm 36w 2d 16% Hadlock HC / AC0.98 EFW3,110 g 37w 3d 41% Hadlock EFW (lb)6 lb EFW (oz)14 oz EFW by:Hadlock ([id number]) Other:An ultrasound for weight has a margin of error of up totwenty percent. Head / Face / Neck Cephalic index0.76 4% Nicolaides Extremities / Bony Struc FL / BPD0.80 FL / HC0.21 FL / AC0.21 Other Structures [id number] bpm Anatomy Lateral ventricles:Appears normal 4-chamber view:Appears normal Stomach:Appears normal Kidneys:Appears normal Bladder:Appears normal Gender:female Wants to know gender:yes Impression ========= BPP /8 with polyhydramnios present, though GRABIEL is smaller [...] GA37 w + 6 d Assigned MELANI:10/30/2024 d General Evaluation Cardiac [...] Standard BPD88.5 mm 35w 5d 17% Hadlock SIZ863.2 mm -/- 85% Hugo HC330.3 mm 37w 4d 23% Hadlock AC337.0 mm 37w 4d 60% Hadlock Femur70.8 mm 36w 2d 16% Hadlock HC / AC0.98 EFW3,110 g 37w 3d 41% Hadlock EFW (lb)6 lb EFW (oz)14 oz EFW by:Hadlock ([id number]) Other:An ultrasound for weight has a margin of error of up totwenty percent. Head / Face / Neck Cephalic index0.76 4% Nicolaides Extremities / Bony Struc FL / BPD0.80 FL / HC0.21 FL / AC0.21 Other Structures [id number] bpm Anatomy Lateral ventricles:Appears normal 4-chamber view:Appears normal Stomach:Appears normal Kidneys:Appears normal Bladder:Appears normal Gender:female Wants to know gender:yes Impression ========= BPP 8/8 with polyhydramnios present, though GRABIEL is smaller than lastultrasound. EFW is normal today. Recommendation Continue the routine schedule of testing for the condition beingmonitored. Trimmer Helper: Debo Guerrero RDMS Physician: Ashley Clements MD Electronically signed by: Ashley Clements MD at: 12:29 us Rosangela Ruiz [facility] US ORDERABLES Final Resul t * US Ob Follow Up Transabdominal Approach (10/15/2024 10:37 AM EDT) Anatomical Region Laterality Modality Body Ultrasound 10/15/2024 10:1 8 AM EDT Narrative 10/15/2024 12:29 PM EDT PAT NAME: NILSON MESSER MED REC#: [id number] DA: 1990 PAT GEND: F PAT TYPE: O EXAM GURMEET: <OBR.7.1>[id number]</OBR.7.1><OBR.7.1>[id number]</OBR.7.1> REF PHYS ASHLEY CLEMENTS Indication ======== history [...] EFW (oz) 14 oz EFW by: Hadlock ([id number]) Other: An ultrasound for weight has a [...] movements 2: tone 2: Amniotic fluid volume 8/8 Biophysical profile score Biometry Standard BPD 88.5 mm 35w 5d 17% Hadlock OFD 116.2 mm -/- 85% Hugo HC 330.3 mm 37w 4d 23% Hadlock AC 337.0 mm 37w 4d 60% Hadlock Femur 70.8 mm 36w 2d 16% Hadlock HC / AC 0.98 EFW 3,110 g 37w 3d 41% Hadlock EFW (lb) 6 lb EFW (oz) 14 oz EFW by: Hadlock ([id number]) Other: An ultrasound for weight has a [...] to know gender: yes Impression ========= BPP 8 with polyhydramnios present, though GRABIEL is smaller than last ultrasound. EFW is normal today. Recommendation Continue the routine schedule of testing for the condition being monitored. Trimmer Helper: Debo Guerrero RDMS Physician: Ashley Clements MD Electronically signed by: Ashley Clements MD at: 12:29 Procedure Note Ashley Clements MD - 10/15/2024 PAT NAME: NILSON MESSER MED REC#: [id number] DA: 1990 PAT GEND: F PAT TYPE: O EXAM GURMEET:<OBR.7.1>[id number]</OBR.7.1><OBR.7.1>[id number]</OBR.7.1> REF PHYS ASHLEY CLEMENTS Indication ======== history [...] GA37 w + 6 d Assigned MELANI:10/30/2024 d General Evaluation Cardiac [...] Standard BPD88.5 mm 35w 5d 17% Hadlock HKK014.2 mm -/- 85% Hugo HC330.3 mm 37w 4d 23% Hadlock AC337.0 mm 37w 4d 60% Hadlock Femur70.8 mm 36w 2d 16% Hadlock HC / AC0.98 EFW3,110 g 37w 3d 41% Hadlock EFW (lb)6 lb EFW (oz)14 oz EFW by:Hadlock ([id number]) Other:An ultrasound for weight has a margin of error of up totwenty percent. Head / Face / Neck Cephalic index0.76 4% Nicolaides Extremities / Bony Struc FL / BPD0.80 FL / HC0.21 FL / AC0.21 Other Structures [id number] bpm Anatomy Lateral ventricles:Appears normal 4-chamber view:Appears [...] GA37 w + 6 d Assigned MELANI:10/30/2024 d General Evaluation Cardiac [...] Standard BPD88.5 mm 35w 5d 17% Hadlock CSQ106.2 mm -/- 85% Hugo HC330.3 mm 37w 4d 23% Hadlock AC337.0 mm 37w 4d 60% Hadlock Femur70.8 mm 36w 2d 16% Hadlock HC / AC0.98 EFW3,110 g 37w 3d 41% Hadlock EFW (lb)6 lb EFW (oz)14 oz EFW by:Hadlock ([id number]) Other:An ultrasound for weight has a margin of error of up totwenty percent. Head / Face / Neck Cephalic index0.76 4% Nicolaides Extremities / Bony Struc FL / BPD0.80 FL / HC0.21 FL / AC0.21 Other Structures [id number] bpm Anatomy Lateral ventricles:Appears normal 4-chamber view:Appears normal Stomach:Appears normal Kidneys:Appears normal Bladder:Appears normal Gender:female Wants to know gender:yes Impression ========= BPP 8/8 with polyhydramnios present, though GRABIEL is smaller than lastultrasound. EFW is normal today. Recommendation Continue the routine schedule of testing for the condition beingmonitored. Trimmer Helper: Debo Guerrero RDMS Physician: Ashley Clements MD Electronically signed by: Ashley Clements MD at: 12:29 us Ashley Clements MD IMG US ORDERABLES Final Result * Strep B Screen - Swab, Vaginal/Rectum (10/15/2024) Swab Rectum and vagina, CS / Unknown Ashley Clements MD MICROBIOLOGY - GENERAL ORDERABLE S Final Result Performing Organization Address City/State/[facility] Co de Phone Number [facility] [address] [place] [address] from Last 3 Months Insurance [employer] Advance Directives * CPR (Attempt to Resuscitate) (Latest Code Status on File) Date Activated Date Inactivated Comments 10/20/2024 1:18 PM 10/23/2024 4:39 PM Question Answer Comments Code Status (Patient has no pulse and is not breathing): CPR (Attempt to Resuscitate) Medical Interventions (Patie nt has pulse or is breathing): Full * CPR (Attempt to Resuscitate) Date Activated Date Inactivated Comments 10/20/2024 7:16 AM 10/20/2024 1:18 PM Question Answer Comments Code Status (Patient has no pulse and is not breathing): CPR (Attempt to Resuscitate) Medical Interventions (Patie nt has pulse or is breathing): Full Support Level Of Support Discussed With: Patient Care Teams Class A Regional Truck Driver Relationship Specialty Start Date End Date Provider, [place] [address] PCP - General 12/16/15
--- OUTSIDE RECORDS SUMMARY | 2024-12-10 14:30 | XMS_ITS | Encounter Summary ---
Author Organization [facility] Address [address] [place] [address] Care Team Providers Care Vtc Technician Name Role Phone Provider, No Known Primary Care Provider [phone] Encounter Details Date Type Department Care Team (Late st Contact Info) Description 09/10/2024 Results Follow-Up [facility] [address] [place] [address] Kayla Mayo I, AUTO PARTS CLERK [address] [facility] [address] [place], [place] [id number] Social History Tobacco Use Types Packs/Day Years [...] on filedocumented in this encounter Care Teams Vtc Technician Relationship Specialty Start Date End Date Provider, [place] [address] PCP - General 12/16/15 documented as of this encounter
--- OUTSIDE RECORDS SUMMARY | 2024-12-10 14:30 | XMS_ITS | Encounter Summary ---
Author Organization [facility] Address [address] [place] [address] Care Team Providers Care Racecar Driver Name Role Phone Provider, No Known Primary Care Provider [phone] Encounter Details Date Type Department Care Team (Latest Contact Info) Description 11/04/2024 Travel Social History Tobacco Use Types Packs/Day Years Used Date Smoking Tobacco: Every Day Cigarettes 1 5 Smokeless Tobacco: Never Alcohol Use Standard Drinks/Week Comments Never 0 (1 standard drink = 0.6 oz pur e alcohol) [facility] Utilities Answer Date Recorded In the past 12 months has [employer] electric, gas, oil, or water company threatened [...] care, and heating? Not very hard 10/20/2024 [facility] [place] of Occupat ional Health - Occupational Stress [...] things needed for daily living? No 10/20/2024 [place] Depression Scale Answer Date Recorded [place] Depression Scale Total 3 11/04/2024 The thought [...] GED or equivalent No 10/20/2024 Preferred Language Brazilian 10/20/2024 PHQ-2 Answer Date Recorded Patient Health [...] on filedocumented in this encounter Care Teams Racecar Driver Relationship Specialty Start Date End Date Provider, [place] [address] PCP - General 12/16/15 documented as of this encounter
--- OUTSIDE RECORDS SUMMARY | 2024-12-10 14:30 | XMS_ITS | Clinical Summary ---
Author Organization [facility] Address [address] [place] [address] Care Team Providers Care Net Developer Consultant Name Role Phone Andrew Lee MD Primary Care Provider Allergies Active Allergy Reactions Criticality Noted Date Comments Amoxicillin Other - please docum ent in the comment field Low 04/26/2024 Medications buprenorphine (Subutex) 8 MG 1 tablet (8 mg). 04/01/2024 Active Vit-Fe Fumarate-FA ( VITAMINS PO) Take by mouth. Active Active Problems Estimated Date of Delivery Comme nts Yes 11/02/2024 Based on Ultraso und No known active problems Family History Medical History Relation Name Comments Hypertension Father Bipolar depression Mother COPD Mother Schizophrenia Mother Sleep apnea Mother Stroke Paternal Grandfather Relation Name Status Comments Father Mother Paternal Grandfather Social History Tobacco Use Types Packs/Day Years Used Date Smoking Tobacco: Every Day Smokeless Tobacco: Never Tobacco Cessation:Ready to Q uit: Not Asked; Counseling Given: Not Answered Comments:Smokes 1 pack of cigarettes per day Alcohol Use Standard Drinks/Week Comments No 0 (1 standard drink = 0.6 oz pure alcohol) Alcoholic Drinks/day: Denies alcohol consumption PHQ-2 Answer Date Recorded Patient Health Questionnaire-2 Score 0 06/21/2024 PHQ-9 Answer Date Recorded Patient Health Questionnaire-9 Score 0 06/21/2024 Estimated Date of Delivery Comme nts Yes 11/02/2024 Based on Ultraso und Sex and Gender Information Value Date Recorded Sex Assigned at Not on file Legal Sex Female 7:46 PM EDT Gender Identity Not on file Sexual Orientation Not on file Last Filed Vital Signs Vital Sign Reading Time Taken Comments Blood Pressure 111/71 06/21/2024 3:29 PM EDT Pulse 78 06/21/2024 3:29 PM EDT Temperature 37.3 C (99.2 F) 03/22/2024 11:12 AM EST Respiratory Rate 20 06/21/2024 3:29 PM EDT Oxygen Saturation 100% 06/21/2024 3:29 PM EDT Inhaled Oxygen Concentration - - Weight 66.6 kg (146 lb 13.2 oz) 06/21/2024 3:29 PM EDT Height 152.4 cm (5') 06/21/2024 3:29 PM EDT Body Mass Index 28.68 06/21/2024 3:29 PM EDT Plan of Treatment Health Maintenance Due Date Last Done Comments [facility]-Infant/Child/Adol SDOH Screenings 1990 [facility]-Varicella Vaccines (1 of 2 - 13+ 2-dose series) 06/04/2003 HPV Vaccines (2 - 3-dose series) 08/15/2006 07/18/2006 [facility]- SDOH Screenings 2008 [facility]-Adult SDOH Screenings 2008 [facility]-Pap Smear 06/04/2011 06/09/2006 [facility]-Pneumococcal Vaccine: Pediatrics (0 to 5 Years) and At-Risk Patients (6 to 49 Years) (2 of 2 - PPSV23) 10/06/2014 08/11/2014 [facility]-Cervical Cancer Screening 2020 [facility]-HPV/Cotest 2020 06/09/2006 [id number] Vaccine ( - season) 2024 [facility]-Influenza Vaccine (#1) 2024 [facility]-Depression Screening 06/21/2025 06/21/2024, 05/30 [facility]-DTaP,Tdap,and Td Vaccines (8 - Td or Tdap) 09/12/2025 09/13/2015, 08/11/2014, 07/01/2002, Additional history exists [facility]-Zoster Vaccines (1 of 2) 2040 [facility]-HIB Vaccines Completed 08/11/2014, 06/1991, 04/28/1991, Additional history exists [facility]-Hepatitis B Vaccines Completed 015, 07/01/2002, 01/14/2002, Additional history exists [facility]-IPV Vaccines Completed 08/11/2014, 11/1994, 02/02/1992, Additional history exists [facility]-Rotavirus Vaccines Aged Out 08/11/2014 No lo nger eligible based on patient's age to complete this topic [facility]-Hepatitis A Vaccines Aged Out 05/13/2016, 08/29 No longer eligible based on patient's age to complete this topic [facility]-HIV Screening Completed 03/22/2024 [facility]-Hepatitis C Screening Completed 03/22/2024, [facility]-Obesity Intervention Completed 025, 04/26/2024, 04/12/2024, Additional history exists [facility]-RSV Vaccine: 60+ Years or (No Doses Required) Completed Procedures Procedure Name Priority Date/Time Associated Diagnosis Comments HEPATITIS C ANTIBODY W/REFLEX TO HCV QUANT PCR Routine 03/22/2024 11:09 AM EST Unsure of LMP (last menstrual period) as reason for ultrasound scan HIV 1/2 ANTIBODY/ANTIGEN SCREEN WITH REFLEX TO HIV I/II DIFFERENTIATION Routine 03/22/2024 11:09 AM EST Unsure of LMP (last menstrual period) as reason for ultrasound scan CYTO DATA CONVERSION Routine 06/09/2006 12:00 AM EDT from Last 3 Months or Most Recently Relevant to Health Maintenance Results * HIV 1 & 2 Antibody/Antigen Screen (03/22/2024 11:09 AM EST) HIV 1 & 2 Antibody/Antigen Screen Non Reactive Non Reactive 03/22/2024 1:55 PM EST [facility] Comment:Screening for HIV 1 & 2 antibodies, and P24 antigen is NONREACTIVE. No confirmatory testing is required. Blood Venous blood specimen / Unknown Venipuncture / Unknown 03/22/2024 11:09 AM EST 03/22/2024 1:06 PM EST us Albin Virk MD LAB BLOOD ORDERABLES Final Resu lt [facility] [address] [place] [address] * (ABNORMAL) Hepatitis C Antibody w/Reflex to HCV Quant PCR (03/22/2024 11:09 AM EST) Hepatitis C Antibody Positive( A) Negative 03/22/2024 2:34 PM EST [facility] Comment:This specimen is cristal ng sent for confirmation by RT-PCR. Blood Venous blood specimen / Unknown Venipuncture / Unknown 03/22/2024 11:09 AM EST 03/22/2024 1:06 PM EST us Albin Virk MD LAB BLOOD ORDERABLES Final Resu lt [facility] [address] [place] [address] * Cytology (06/09/2006 12:00 AM EDT) 06/09/2006 06/12/2006 Narrative SUNQUEST - 06/19/2006 4:12 PM EDT [facility] MR #: [id number] [facility] NILSON [place] [place], [place] [address] 1990 (Age: 16) FW Collect Date: 06/09/2006 00:00 Receipt Date: 06/12/2006 00:00 Page 1 DEPARTMENT OF PATHOLOGY AND LABORATORY MEDICINE CYTOPATHOLOGY REPORT Email: [email or web address] [phone] ATTENDING MD/Practitioner: Ino Moreno MD Service: [facility] Location: OB Reported: 06/19/2006 16:12 Collected: 06/09/2006 00:00 INTERPRETATION A. THIN PREP (CERVICAL/VAGINAL): NEGATIVE FOR INTRAEPITHELIAL LESION OR MALIGNANCY. CELLULAR CHANGES CONSISTENT WITH HERPESVIRUS INFECTION. SATISFACTORY FOR EVALUATION; ENDOCERVICAL/ TRANSFORMATION ZONE COMPONENT PRESENT. Slide scanned and imaged by Canvas ThinPrep Imaging System with manual review of all selected boyle. Cervical/vaginal cytology is a screening test primarily for squamous cancers and precursors and has associated false negative and positive results. New technologies such as liquid based sampling may decrease but will not eliminate all false negative results. Regular screening and follow-up of unexplained clinical signs and symptoms are recommended to minimize false negative results. Electronically Signed Out TEX Moraes(ASCP) Jose Chapa MD Cervical cytology is a screening test primarily for squamous cancers and precursors and has associated false negative and positive results. New technologies such as liquid based sampling may decrease but will not eliminate all false negative results. Regular screening and follow-up of unexplained clinical signs and symptoms are recommended to minimize false negative results. Please see the ASCCP website (www.asccp.org) for followup recommendations. If HPV testing was requested, correlation with the results is suggested (please call Microbiology at [phone] for results). CLINICAL INFORMATION: Menstrual History: Cyclic Date of Last Menstrual Period: {Not Provided} Other Clinical Conditions: If ASCUS and > 24 years of age, HPV/DNA testing requested. SPECIMEN DESCRIPTION: A: THIN PREP (CERVICAL/VAGINAL) THIN PREP PROCESS CELLULAR ENHANCEMENT ICD: V76.2 CERVIX, SPECIAL SCREENING FOR MALIGNANT NEOPLASM 054.10 GENITAL HERPES, UNSPECIFIED F: A; RT IMAGE [id number], [id number] C\V (PO) SNOMED CODES: A; [id number] In cases where a pathologist has signed out the report, the service has been rendered in part by a resident. The signing pathologist has performed and is responsible for the reported pathologic evaluation. Emilee Moreno MD LAB PATHOLOGY ORDERABLES Final Result [facility]QUEST from Last 3 Months or Most Recently Relevant to Health Maintenance Insurance [employer] Care Teams Net Developer Consultant Relationship Specialty Start Date End Date Andrew Lee MD [address] [place] [address] PCP - General 08/11/20
--- OUTSIDE RECORDS SUMMARY | 2024-12-10 14:30 | XMS_ITS | Encounter Summary ---
Author Organization [facility] Address [address] [place] [address] Care Team Providers Care Service Order Expediter Name Role Phone Provider, No Known Primary Care Provider [phone] Encounter Details Date Type Department Care Team (Late st Contact Info) Description 10/25/2024 Maternal Screening [facility] NURSE CALL CENTER [address] [place] [id number] Nicole Price, RN Social History Tobacco Use Types Packs/Day Years Used Date Smoking Tobacco: Every Day Cigarettes 1 5 Smokeless Tobacco: Never Alcohol Use Standard Drinks/Week Comments Never 0 (1 standard drink = 0.6 oz pur e alcohol) [facility] Utilities Answer Date Recorded In the past 12 months has [employer] electric, gas, oil, or water company threatened [...] care, and heating? Not very hard 10/20/2024 [facility] [place] of Occupat ional Health - Occupational Stress [...] things needed for daily living? No 10/20/2024 [place] Depression Scale Answer Date Recorded [place] Depression Scale Total 18 10/21/2024 The thought [...] GED or equivalent No 10/20/2024 Preferred Language Nigerian 10/20/2024 PHQ-2 Answer Date Recorded Patient Health Questionnaire-2 Score 0 10/20/2024 Comments No Sex and Gender Information Value Date Recorded Sex Assigned at Not on file Legal Sex Female 1:47 PM EDT Gender Identity Not on file Sexual Orientation Not on file documented as of this encounter Miscellaneous Notes * Outreach Note - Nicole Price RN - 10/25/2024 10:30 AM EDT Maternal Screening Survey Flowsheet Row Responses Eligibility Eligible Prep survey completed? Yes Facility patient discharged from? [facility] - Registered Nurse documented in this encounter Plan of Treatment Not on file documented as of this encounter Visit Diagnoses Not on filedocumented in this encounter Care Teams Service Order Expediter Relationship Specialty Start Date End Date Provider, [place] [address] PCP - General 12/16/15 documented as of this encounter
--- OUTSIDE RECORDS SUMMARY | 2024-12-10 14:30 | XMS_ITS | Encounter Summary ---
Author Organization [facility] Address [address] [place] [address] Care Team Providers Care Dry Chain Worker Name Role Phone Provider, No Known Primary Care Provider [phone] Encounter Details Date Type Department Care Team (Latest Contact Info) Description 10/15/2024 Travel Social History Tobacco Use Types Packs/Day [...] on filedocumented in this encounter Care Teams Dry Chain Worker Relationship Specialty Start Date End Date Provider, [place] [address] PCP - General 12/16/15 documented as of this encounter
--- OUTSIDE RECORDS SUMMARY | 2024-12-10 14:30 | XMS_ITS | Encounter Summary ---
Author Organization [facility] Address [address] [place] [address] Care Team Providers Care Repairer Name Role Phone Provider, No Known Primary Care Provider [phone] Encounter Details Date Type Department Care Team (Late st Contact Info) Description 10/19/2024 Prep for Surgery [facility] ORDERS ONLY [address] [place] [address] Ashley Cruz MD [address] [facility] [address] [place] [address] Social History Tobacco Use Types Packs/Day Years Used Date Smoking Tobacco: Every Day Cigarettes 1 5 Smokeless Tobacco: Never Alcohol Use Standard Drinks/Week Comments Never 0 (1 standard drink = 0.6 oz pur e alcohol) [facility] Utilities Answer Date Recorded In the past 12 months has [employer], gas, oil, or water [employer] threatened to shut off services in your [...] care, and heating? Not very hard 10/20/2024 [place] of Occupat ional Health - Occupational Stress [...] things needed for daily living? No 10/20/2024 Abuse Screen Answer Date Recorded Feels Unsafe [...] GED or equivalent No 10/20/2024 Preferred Language Welsh 10/20/2024 PHQ-2 Answer Date Recorded Patient Health Questionnaire-2 Score 0 10/20/2024 Comments Yes Sex and Gender Information Value Date Recorded Sex Assigned at Not on file Legal Sex Female 1:47 PM EDT Gender Identity Not on file Sexual Orientation Not on file documented as of this encounter Plan of Treatment Not on file documented as of this encounter Visit Diagnoses Not on filedocumented in this encounter Care Teams Repairer Relationship Specialty Start Date End Date Provider, [place] [address] PCP - General 12/16/15 documented as of this encounter
--- OUTSIDE RECORDS SUMMARY | 2024-12-10 14:30 | XMS_ITS | Encounter Summary ---
Author Organization [facility] Address [address] [place] [address] Care Team Providers Care Ice Skater Name Role Phone Provider, No Known Primary Care Provider [phone] Encounter Details Date Type Department Care Team (Late st Contact Info) Description 10/22/2024 Results Follow-Up [facility] DELIVERY [address] [place] [id number] Ashley Cruz MD [address] [facility] [address] [place] [address] Social History Tobacco Use Types Packs/Day Years Used Date Smoking Tobacco: Every Day Cigarettes 1 5 Smokeless Tobacco: Never Alcohol Use Standard Drinks/Week Comments Never 0 (1 standard drink = 0.6 oz pur e alcohol) [facility] Utilities Answer Date Recorded In the past 12 months has [employer], [employer], oil, or water [employer] threatened to shut off services in your [...] care, and heating? Not very hard 10/20/2024 [facility] [place] of Occupat ional Health - Occupational Stress [...] things needed for daily living? No 10/20/2024 [place] Depression Scale Answer Date Recorded [place] Depression Scale Total 18 10/21/2024 The thought [...] GED or equivalent No 10/20/2024 Preferred Language Croatian 10/20/2024 PHQ-2 Answer Date Recorded Patient Health [...] on filedocumented in this encounter Care Teams Ice Skater Relationship Specialty Start Date End Date Provider, [place] [address] PCP - General 12/16/15 documented as of this encounter
--- OUTSIDE RECORDS SUMMARY | 2024-12-10 14:31 | XMS_ITS | Encounter Summary ---
Author Organization [facility] Address [address] [place] [address] Care Team Providers Care Loading Supervisor Name Role Phone Provider, No Known Primary Care Provider [phone] Encounter Details Date Type Department Care Team (Late st Contact Info) Description 11/02/2024 Maternal Screening [facility] [address] [place] [phone] Nicole Price, RN Social History Tobacco Use Types Packs/Day Years Used Date Smoking Tobacco: Every Day Cigarettes 1 5 Smokeless Tobacco: Never Alcohol Use Standard Drinks/Week Comments Never 0 (1 standard drink = 0.6 oz pur e alcohol) [facility] Utilities Answer Date Recorded In the past 12 months has [employer] electric, gas, oil, or water company threatened [...] care, and heating? Not very hard 10/20/2024 [facility] [place] [facility] - Occupational Stress [...] things needed for daily living? No 10/20/2024 [place] Depression Scale Answer Date Recorded [place] Depression Scale Total 3 11/02/2024 The thought of harming myself has occurred to me . Never 11/02/2024 Abuse Screen Answer Date Recorded Feels Unsafe [...] GED or equivalent No 10/20/2024 Preferred Language Ghanaian 10/20/2024 PHQ-2 Answer Date Recorded Patient Health Questionnaire-2 Score 0 10/20/2024 Comments No Sex and Gender Information Value Date Recorded Sex Assigned at Not on file Legal Sex Female 1:47 PM EDT Gender Identity Not on file Sexual Orientation Not on file documented as of this encounter Miscellaneous Notes * Outreach Note - Nicole Price RN - 11/02/2024 10:08 AM EDT Maternal Screening Survey Flowsheet Row [facility] Yes Call start time 1009 Call end time 1013 I have been able to laugh and see the funny side of things. 1 I have looked forward with enjoyment to things. 0 I have blamed myself unnecessarily when things went wrong. 0 I have been anxious or worried for no good reason. 1 I have felt scared or panicky for no good reason. 1 Things have been getting on top of me. 0 I have been so unhappy that I have had difficulty sleeping. 0 I have felt sad or miserable. 0 I have been so unhappy that I have been crying. 0 The thought of harming myself has occurred to me. 0 [place] Depression Scale Total 3 Did any of your parents have problems with alcohol or drug use? Yes Do any of your peers have problems with alcohol or drug use? Yes Does your partner have problems with alcohol or drug use? Yes Before you were did you have problems with alcohol or drug use? (past) Yes In the past month, did you drink beer, wine, liquor or use any other drugs? () No Have you used any opioids, narcotics, or pain medications in the last year? Yes If so, were they prescribed or unprescribed? Prescribed Have you used any other drugs or unprescribed medications in the last year? No [facility] Provider Notification NA Maternal Screening call completed Yes NICOLE Foster - Registered Nurse documented in this encounter Plan of Treatment Not on file documented as of this encounter Visit Diagnoses Not on filedocumented in this encounter Care Teams Loading Supervisor Relationship Specialty Start Date End Date Provider, [place] [address] PCP - General 12/16/15 documented as of this encounter
--- OUTSIDE RECORDS SUMMARY | 2024-12-10 14:31 | XMS_ITS | Patient Health Record ---
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 Role Phone JUAN MANUEL LEE Primary Care Provider Juan Manuel Lee MD Unavailable Unavailable Allergies Allergen (clinical drug ingredient) Drug/Non Drug Allergy documented on EMR Reaction Allergy Type Onset Date Status amoxicillin amoxicillin Unknown Drug Allergy Act uday Reason For Referral No Information Medications Medication SIG (Take, Route, Frequency, Duration) Notes Start Date End Date Status Nurtec 75 MG 1 tablet on the tong ue and allow to dissolve Orally; Duration: 30 day(s) 10/09/2022 Active Gabapentin 300 MG 1 tablet Orally thre e times a day; Duration: 30 days 10/09/2022 Not-Taking Ondansetron 4 MG 1 tablet on the tong ue and allow to dissolve Orally Once a day; Duration: 30 day(s) 10/09/2022 Active Fluticasone Propionate 50 MCG/ACT 1 spray in each nostril Nasally Once a day; Duration: 30 day(s) 09/06/2021 Active Loratadine 10 MG 1 tablet Orally Once a day; Duration: 90 days OTC Active Suboxone 8-2 MG 1 film under the ton cachorro and allow to dissolve Sublingual Once a day Active Social History Tobacco Use: Social History Observation Description Date Details (start date - stop date) Current Smoker NA - NA Tobacco Use/Smoking Question Answer Notes Are you a current every day smoker Section Notes: Pt admits to smoking a pack a day of tabacco cigs, but denies drinking alcohol. Pt admits to smoking a pack a day of tabacco cigs, but denies drinking alcohol. Problems Problem Type SNOMED Code ICD Code Onset Dates Problem Status W/U Status Risk Notes Problem Allergic rhinitis caused by pollen (disorder) (24525538) Allergic rhinitis due to pollen (J30.1) 017 Active confirmed Paul-Bin Problem Hypercalcemia (31079719) Hypercalcemia (E83.52) Active confirmed Problem Lumbosacral plexus lesion (8940006) Lumbosacral plexus disorders (G54.1) Active confirmed Problem Chronic bronchitis (94525336) Unspecified chronic bronchitis (J42) Active confirmed Problem Neuropathy (536543159) Neuropathy (G62.9) Active confirmed Problem Reflux esophagitis (598932266) Reflux esophagitis (K21.0) Active confirmed Problem Gastroesophageal reflux disease without esophagitis (079336369) Gastroesophageal reflux disease without esophagitis (K21.9) Active confirmed Problem Allergic rhinitis (28787973) Allergic rhinitis (J30.9) Active confirmed Problem Migraine with aura (0184365) Migraine with aura and without status migrainosus, not intractable (G43.109) Active confirmed Problem Tobacco dependence (77107378) Tobacco dependence (F17.200) Active confirmed Problem Nondependent opioid abuse in remission (637926921) Opioid abuse, in remission (F11.11) Active confirmed Plan Of Treatment Pending Test Test Name Order Date Sputum Cytology 12/28/2018 TSH 12/28/2018 CBC With Differential/Platelet 9 Gram Stain w/Sputum Cult Rflx 12/28/2018 MRSA Screening Culture 12/28/2018 Fungus Culture W/Rfx Rapid ID 12/28/2018 Lipid Panel With LDL/HDL Ratio 9 Comp. Metabolic Panel (14) 12/28/2018 Urine Drug Screen 04/08/2017 Insurance Providers Payer Name Payer Address Payer Phone Subscriber Number Group Number Insured Name Patient Relationship to Insured Coverage Start Date Coverage End Date [employer] [place] [address] [place] [phone] [id number] Sarah Messer Self - patient is the insured Medical (General) History Medical History History ICD Code Hypertension (Paul) spinal fracture neuropathy acne allergic rhinitis opiate abuse on suboxone asthma bronchitis heavy tobacco use right jaw tmj requiring valium and muscl e relaxers after a dentist apt. hep c cured Surgical History Surgery Date(Month/Year) Caesarian Section Hospitalization History Reason Date(Month/Year)
--- OUTSIDE RECORDS SUMMARY | 2024-12-10 14:31 | XMS_ITS | Patient Health Record ---
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 Name Role Phone Alisa Moody Unavailable [phone] Allergies No Known Allergies Reason For Referral No Information Medications Medication SIG (Take, Route, Frequency, Duration) Notes Start Date End Date Status Methotrexate Sodium 50 MG/2ML Solution 75 mg Injection once in office; Duration: 1 days 11/28/2023 Active Amphetamine-Dextroamphet ER 15 MG Capsule Extended Release 24 Hour Take 1 capsule by mouth daily as needed Oral; Duration: 30 Days Active Suboxone 8-[address] 3 film under tongue once a day Sublingual; Duration: 28 Days Active Anoro Ellipta 62.5-25 MCG/ACT Aerosol Powder Breath Activated Inhale 1 puff by mouth via inhaler daily for 30 days. Inhalation; Duration: 30 Days Active Social History Social History Drugs/Alcohol: Social Info Question Answer Notes Drugs Have you used drugs other than those for medical reasons in the past 12 months? Yes Are you in a treatment program? Yes Type of program: Other Plan Of Treatment No Information Insurance Providers Payer Name Payer Address Payer Phone Subscriber Number Group Number Insured Name Patient Relationship to Insured Coverage Start Date Coverage End Date Chon MENDOZAO [address] [place] [address] [id number] Sarah Self - patient is the insured
[2024-12-10 14:33] LABS: COC Drug Screen Collection Only
== END 2024-12-10 23:59 | disposition home or self-care (01) ==
LOC: LAB 14:25
DX: R69 Illness, unspecified (principal)